=== PATIENT | female | born 1955 | race Caucasian/White ===

== ENCOUNTER → 2016-12-14 | Outpatient (CLI) | payer MEDICARE ==
[2016-12-14 16:41] LABS: CH 31.2; CHCM 31.5; HCT 48.9 % (34.0-46.0); HDW 2.32; HGB 15.4 gm/dL (11.4-16.0); MCH 31.3 pg (25.0-35.0); MCHC 31.5 g/dL (31.0-37.0); MCV 99.6 fL (80.0-100.0); Mean Platelet Volume 7.6; RBC 4.91 m/uL (3.80-5.40); RDW 13.9 % (11.5-15.5); WBC 9.4 k/uL (3.8-10.6)
[2016-12-14 16:50] LABS: ALT 45 U/L (9-52); AST 35 U/L (14-36); Alkaline Phosphatase 104 U/L (38-126); Anion Gap 9 mmol/L; Blood Urea Nitrogen 14 mg/dL (7-17); Carbon Dioxide 31 mmol/L (22-30); Chloride 105 mmol/L (98-107); Glucose 89 mg/dL (74-99); Non-African American GFR(MDRD) >60 (>60 ml/min/1.73 sqM); Potassium 4.8 mmol/L (3.5-5.1); Sodium 145 mmol/L (137-145); Total Bilirubin 0.4 mg/dL (0.2-1.3); Total Protein 7.5 g/dL (6.3-8.2)
== END | disposition home or self-care (01) ==
LOC: LABWHC1 15:59
PROVIDERS: ATTEND Psychiatry & Neurology Psychiatry
DX: Z51.81 Encounter for therapeutic drug level monitoring (principal); Z79.899 Other long term (current) drug therapy; E03.9 Hypothyroidism, unspecified
CPT/HCPCS: 36415; 80053; 84439; 84443; 85027

== ENCOUNTER 2017-01-12 13:59 | Emergency (ER) | payer MEDICARE ==
--- NOTE | 2017-01-12 14:59 | ED ---
Psych HPI - General Chief Complaint: Psychiatric Symptoms Stated Complaint: Dr Quintanilla/Mental Health Time Seen by Provider: 01/12/17 14:43 Source: patient, RN notes reviewed Mode of arrival: ambulatory Limitations: no limitations - History of Present Illness Initial Comments: 61-year-old female presents emergency Department chief complaint of depression, suicidal thoughts. Patient states that she recently had a in the family and states that she is very stressed out from this. Patient states she does have suicidal thoughts but no exact plan. Patient denies any physical complaints this time. Patient just came from psychiatrist's office who advised to come emergency department for possible admission. Patient denies any homicidal thoughts. Patient does occasionally use alcohol. - Related Data Home Medications Medication Instructions Recorded Confirmed Escitalopram [Lexapro] 20 mg PO DAILY 04/04/14 01/12/17 Levothyroxine Sodium [Levoxyl] 50 mcg PO DAILY 04/04/14 01/12/17 amLODIPine BESYLATE [Norvasc] 10 mg PO DAILY 04/04/14 01/12/17 Albuterol Inhaler [Ventolin Hfa 2 puff INHALATION RT-QID PRN 01/12/17 01/12/17 Inhaler] Calcium Carbonate [Calcium] 600 mg PO DAILY 01/12/17 01/12/17 Cholecalciferol [Vitamin D3] 1,000 unit PO DAILY 01/12/17 01/12/17 Diazepam [Valium] 5 mg PO BID PRN 01/12/17 01/12/17 HYDROcodone/APAP 10-325MG [[place] 1 tab PO Q6H PRN 01/12/17 01/12/17 10-325] lamoTRIgine [LaMICtal] 400 mg PO DAILY 01/12/17 01/12/17 Allergies Allergy/AdvReac Type Severity Reaction Status Date / Time influenza virus vaccine qs Allergy Unknown Unknown Verified 01/12/17 15:17 [id number] (36 mos +) [From Fluarix Quad] latex Allergy Unknown Rash/Hives Verified 01/12/17 15:17 duloxetine HCl AdvReac Unknown INCREASED Verified 01/12/17 15:17 [From Cymbalta] DEPRESSION Review of Systems ROS Statement: Those systems with pertinent positive or pertinent negative responses have been documented in the HPI. ROS Other: All systems not noted in ROS Statement are negative. Past Medical History Past Medical History: COPD, Hypertension, Musculoskeletal Disorder, Thyroid Disorder Additional Past Medical History / Comment(s): CHRONIC BACK PAIN, OCCASIONAL DIZZINESS. History of Any Multi-Drug Resistant Organisms: None Reported Past Surgical History: Section, Orthopedic Surgery, Tonsillectomy Additional Past Surgical History / Comment(s): left shoulder, RIGHT HIP SURGERY Past Anesthesia/Blood Transfusion Reactions: No Reported Reaction Past Psychological History: Anxiety, Bipolar, Depression, Panic Disorder Smoking Status: Current every day smoker Past Alcohol Use History: Occasional Additional Past Alcohol Use History / Comment(s): SMOKES OVER 1 PPD, SMOKING FOR APPROX 45 YEARS. Past Drug Use History: None Reported Additional Drug Use History / Comment(s): NO COCAINE FOR 3 YEARS. - Past Family History Mother Family Medical History: Cancer, CVA/TIA Additional Family Medical History / Comment(s): PANCREATIC CANCER General Exam Limitations: no limitations General appearance: alert, in no apparent distress Head exam: Present: atraumatic, normocephalic, normal inspection Neck exam: Present: normal inspection, full ROM. Absent: tenderness, meningismus, lymphadenopathy Respiratory exam: Present: normal lung sounds bilaterally. Absent: respiratory distress, wheezes, rales, rhonchi, stridor Cardiovascular Exam: Present: regular rate, normal rhythm, normal heart sounds. Absent: systolic murmur, diastolic murmur, rubs, gallop, clicks Neurological exam: Present: alert, oriented X3, CN II-XII intact Psychiatric exam: Present: depressed, flat affect Course Vital Signs 01/12/17 01/12/17 14:28 18:31 Temperature 98.0 F 97.9 F Pulse Rate 61 50 L Respiratory 18 12 Rate Blood Pressure 121/71 135/60 O2 Sat by Pulse 98 95 Oximetry Medical Decision Making - Medical Decision Making 7-year-old female presented for psychiatric evaluation. Patient is depressed, suicidal. Patient is medically cleared and will be transferred to a psychiatric facility. - Lab Data Result diagrams: 01/12/17 18:15 01/12/17 18:15 Lab Results 01/12/17 01/12/17 01/12/17 Range/Units 15:15 18:15 18:15 WBC 5.7 (3.8-10.6) k/uL RBC 4.76 (3.80-5.40) m/uL Hgb 15.2 (11.4-16.0) gm/dL Hct 45.8 (34.0-46.0) % MCV 96.1 (80.0-100.0) fL MCH 31.8 (25.0-35.0) pg MCHC 33.1 (31.0-37.0) g/dL RDW 13.5 (11.5-15.5) % Plt Count 213 (150-450) k/uL Neutrophils % 57 % Lymphocytes % 32 % Monocytes % 5 % Eosinophils % 3 % Basophils % 1 % Neutrophils # 3.3 (1.3-7.7) k/uL Lymphocytes # 1.8 (1.0-4.8) k/uL Monocytes # 0.3 (0-1.0) k/uL Eosinophils # 0.2 (0-0.7) k/uL Basophils # 0.1 (0-0.2) k/uL Sodium 143 (137-145) mmol/L Potassium 4.0 (3.5-5.1) mmol/L Chloride 104 (98-107) mmol/L Carbon Dioxide 31 H (22-30) mmol/L Anion Gap 8 mmol/L BUN 12 (7-17) mg/dL Creatinine 0.77 (0.52-1.04) mg/dL Est GFR (MDRD) Af Amer >60 (>60 ml/min/1.73 sqM) Est GFR (MDRD) Non-Af >60 (>60 ml/min/1.73 sqM) Glucose 98 (74-99) mg/dL Calcium 9.9 (8.4-10.2) mg/dL Total Bilirubin 0.5 (0.2-1.3) mg/dL AST 30 (14-36) U/L ALT 33 (9-52) U/L Alkaline Phosphatase 65 (38-126) U/L Total Protein 6.8 (6.3-8.2) g/dL Albumin 4.2 (3.5-5.0) g/dL Urine Opiates Screen Not Detected (NotDetected) Ur Oxycodone Screen Not Detected (NotDetected) Urine Methadone Screen Not Detected (NotDetected) Ur Propoxyphene Screen Not Detected (NotDetected) Ur Barbiturates Screen Not Detected (NotDetected) U Tricyclic Antidepress Not Detected (NotDetected) Ur Phencyclidine Scrn Not Detected (NotDetected) Ur Amphetamines Screen Not Detected (NotDetected) U Methamphetamines Scrn Not Detected (NotDetected) U Benzodiazepines Scrn Detected H (NotDetected) Urine Cocaine Screen Not Detected (NotDetected) U Marijuana (THC) Screen Not Detected (NotDetected) Disposition Clinical Impression: Depression, Suicidal ideation Disposition: TRANSFER TO PSYCH HOSP/UNIT Condition: Stable Time of Disposition: 19:10
[2017-01-12 18:22] LABS: Basophils # (A) 0.1 k/uL (0-0.2); Basophils % (A) 1 %; CH 31.7; CHCM 33.1; Eosinophils # (A) 0.2 k/uL (0-0.7); Eosinophils % (A) 3 %; HCT 45.8 % (34.0-46.0); HDW 2.27; HGB 15.2 gm/dL (11.4-16.0); Luc # (Auto) 0.13; Luc % (Auto) 2; Lymphocytes # (A) 1.8 k/uL (1.0-4.8); Lymphocytes % (A) 32 %; MCH 31.8 pg (25.0-35.0); MCHC 33.1 g/dL (31.0-37.0); MCV 96.1 fL (80.0-100.0); Mean Platelet Volume 7.4; Monocytes # (A) 0.3 k/uL (0-1.0); Monocytes % (A) 5 %; Neutrophils # (A) 3.3 k/uL (1.3-7.7); Neutrophils % (A) 57 %; RBC 4.76 m/uL (3.80-5.40); RDW 13.5 % (11.5-15.5); WBC 5.7 k/uL (3.8-10.6); WBC (Perox) 5.62
[2017-01-12 18:35] LABS: ALT 33 U/L (9-52); AST 30 U/L (14-36); Alkaline Phosphatase 65 U/L (38-126); Anion Gap 8 mmol/L; Blood Urea Nitrogen 12 mg/dL (7-17); Calcium 9.9 mg/dL (8.4-10.2); Carbon Dioxide 31 mmol/L (22-30); Chloride 104 mmol/L (98-107); Glucose 98 mg/dL (74-99); Non-African American GFR(MDRD) >60 (>60 ml/min/1.73 sqM); Sodium 143 mmol/L (137-145); Total Bilirubin 0.5 mg/dL (0.2-1.3); Total Protein 6.8 g/dL (6.3-8.2)
[2017-01-12 21:05] VITALS: RESP 16
[2017-01-12 22:50] VITALS: BP 126/77; PULSE 58; TEMP 98.9
== END 2017-01-12 22:48 ==
LOC: EC 13:59
DX: F32.9 Major depressive disorder, single episode, unspecified (principal); R45.851 Suicidal ideations; J44.9 Chronic obstructive pulmonary disease, unspecified; I10 Essential (primary) hypertension; E07.9 Disorder of thyroid, unspecified; F41.0 Panic disorder [episodic paroxysmal anxiety]; F41.9 Anxiety disorder, unspecified; F17.200 Nicotine dependence, unspecified, uncomplicated; Z88.8 Allergy status to other drugs, medicaments and biological substances; Z88.7 Allergy status to serum and vaccine; Z91.040 Latex allergy status
CPT/HCPCS: 99285; G9611; 36415; 80053; 80306; 82075; 85025

== ENCOUNTER → 2017-06-29 | Outpatient (CLI) | payer MEDICARE ==
--- NOTE | 2017-06-30 11:14 | MM ---
Reason for exam: screening (asymptomatic). Last mammogram was performed 2 years and 4 months ago. History: Patient is postmenopausal. Taking estrogen for 1 month. Physical Findings: A clinical breast exam by your physician is recommended on an annual basis and results should be correlated with mammographic findings. MG Screening Mammo w CAD Bilateral CC and MLO view(s) were taken. Prior study comparison: February 19, 2015, bilateral MG screening mammo w CAD. December 24, 2013, bilateral digital screening mammo w/CAD. The breast tissue is heterogeneously dense. This may lower the sensitivity of mammography. No suspicious abnormality. ASSESSMENT: Negative, BI-RAD 1 RECOMMENDATION: Routine screening mammogram of both breasts in 1 year.
== END | disposition home or self-care (01) ==
LOC: RADMAMWWP 13:48
PROVIDERS: ATTEND Family Medicine
DX: Z12.31 Encounter for screening mammogram for malignant neoplasm of breast (principal)

== ENCOUNTER → 2017-11-30 | Outpatient (CLI) | payer MEDICARE ==
[2017-11-30 15:30] LABS: HCT 47.5 % (34.0-46.0); HGB 15.6 gm/dL (11.4-16.0); MCH 31.3 pg (25.0-35.0); MCHC 32.8 g/dL (31.0-37.0); MCV 95.3 fL (80.0-100.0); Mean Platelet Volume 6.8; Platelet Count 386 k/uL (150-450); RBC 4.98 m/uL (3.80-5.40); RDW 13.6 % (11.5-15.5); WBC 8.3 k/uL (3.8-10.6)
[2017-11-30 15:44] LABS: ALT 80 U/L (9-52); AST 39 U/L (14-36); Albumin 5.1 g/dL (3.5-5.0); Alkaline Phosphatase 121 U/L (38-126); Anion Gap 12 mmol/L; Blood Urea Nitrogen 17 mg/dL (7-17); Calcium 10.6 mg/dL (8.4-10.2); Carbon Dioxide 33 mmol/L (22-30); Chloride 99 mmol/L (98-107); Cholesterol 236 mg/dL (<200); Glucose 91 mg/dL (74-99); HDL Cholesterol 99 mg/dL (40-60); LDL Cholesterol,Calculated 118 mg/dL (0-99); Potassium 4.5 mmol/L (3.5-5.1); Sodium 144 mmol/L (137-145); Total Bilirubin 0.5 mg/dL (0.2-1.3); Total Protein 8.4 g/dL (6.3-8.2); Triglycerides 94 mg/dL (<150)
[2017-11-30 16:00] LABS: T4, Free (Free Thyroxine) 0.89 ng/dL (0.78-2.19)
== END | disposition home or self-care (01) ==
LOC: LABWHC1 15:10
PROVIDERS: ATTEND Psychiatry & Neurology Psychiatry
DX: E03.9 Hypothyroidism, unspecified (principal); Z79.899 Other long term (current) drug therapy
CPT/HCPCS: 36415; 80053; 80061; 84439; 84443; 85027

== ENCOUNTER 2018-01-22 08:01 | Inpatient (IN) | payer MEDICARE ==
[2018-01-22] MEDS ORDERED: TOPICAL SKIN ADHESIVE 1 EACH AMP TOPICAL STA (08:15)
--- NOTE | 2018-01-22 08:18 | ED ---
General Adult HPI - General Chief complaint: Overdose Stated complaint: SUICIDAL Time Seen by Provider: 01/22/18 08:08 Source: patient, family, RN notes reviewed Mode of arrival: wheelchair Limitations: no limitations - History of Present Illness Initial comments: Patient is a pleasant 62-year-old female presenting to the emergency Department with depression and suicidal thoughts. Symptoms have been worse for the past month or more. Patient was unable to afford her Abilify that was recommended. Patient has bipolar. Patient attributes her depression to her bipolar and states she just gets this way at times. Patient took approximately 15 of 5 mg Valium around 11 PM last night. Patient also attempted to cut both of her hands with a large knife this morning. This was a clean knife from the kitchen. Tetanus immunization is less than 5 years. No hallucinations. No alcohol or street drug use. No physical complaints other than lacerations. - Related Data Home Medications Medication Instructions Recorded Confirmed Escitalopram [Lexapro] 20 mg PO DAILY 04/04/14 01/22/18 Levothyroxine Sodium [Levoxyl] 50 mcg PO DAILY 04/04/14 01/22/18 amLODIPine BESYLATE [Norvasc] 10 mg PO DAILY 04/04/14 01/22/18 Albuterol Inhaler [Ventolin Hfa 2 puff INHALATION RT-QID PRN 01/12/17 01/22/18 Inhaler] Calcium Carbonate [Calcium] 600 mg PO DAILY 01/12/17 01/22/18 Cholecalciferol [Vitamin D3] 1,000 unit PO DAILY 01/12/17 01/22/18 Diazepam [Valium] 5 mg PO BID PRN 01/12/17 01/22/18 HYDROcodone/APAP 10-325MG [[place] 1 tab PO Q6H PRN 01/12/17 01/22/18 10-325] lamoTRIgine [LaMICtal] 400 mg PO DAILY 01/12/17 01/22/18 Allergies Allergy/AdvReac Type Severity Reaction Status Date / Time influenza virus vaccine qs Allergy Unknown Unknown Verified 01/22/18 15:01 [id number] (36 mos, up) [From Fluarix Quad] latex Allergy Unknown Rash/Hives Verified 01/22/18 15:01 duloxetine HCl AdvReac Unknown INCREASED Verified 01/22/18 15:01 [From Cymbalta] DEPRESSION Review of Systems ROS Statement: Those systems with pertinent positive or pertinent negative responses have been documented in the HPI. ROS Other: All systems not noted in ROS Statement are negative. Constitutional: Denies: fever Eyes: Denies: eye pain ENT: Denies: ear pain Respiratory: Denies: cough Cardiovascular: Denies: chest pain Endocrine: Denies: fatigue Gastrointestinal: Denies: abdominal pain Genitourinary: Denies: dysuria Musculoskeletal: Denies: back pain Skin: Denies: rash Neurological: Denies: headache Psychiatric: Reports: depression, suicidal thoughts. Denies: auditory hallucinations, visual hallucinations Past Medical History Past Medical History: COPD, Hypertension, Musculoskeletal Disorder, Thyroid Disorder Additional Past Medical History / Comment(s): CHRONIC BACK PAIN, OCCASIONAL DIZZINESS. History of Any Multi-Drug Resistant Organisms: None Reported Past Surgical History: Section, Orthopedic Surgery, Tonsillectomy Additional Past Surgical History / Comment(s): left shoulder, RIGHT HIP SURGERY Past Anesthesia/Blood Transfusion Reactions: No Reported Reaction Past Psychological History: Anxiety, Bipolar, Depression, Panic Disorder Smoking Status: Current every day smoker Past Alcohol Use History: Occasional Past Drug Use History: None Reported - Past Family History Mother Family Medical History: Cancer, CVA/TIA Additional Family Medical History / Comment(s): PANCREATIC CANCER General Exam Limitations: no limitations General appearance: alert, in no apparent distress Head exam: Present: atraumatic Eye exam: Present: normal appearance, PERRL ENT exam: Present: normal oropharynx Neck exam: Present: normal inspection Respiratory exam: Present: normal lung sounds bilaterally Cardiovascular Exam: Present: normal rhythm, bradycardia GI/Abdominal exam: Present: soft. Absent: tenderness Extremities exam: Present: other ( 2 Lacerations of left thumb) Neurological exam: Present: alert Psychiatric exam: Present: normal affect, normal mood Skin exam: Present: other (2 lacerations of the left thumb) Course Vital Signs 01/22/18 01/22/18 01/22/18 08:01 08:48 10:38 Temperature 97.2 F L Pulse Rate 51 L 50 L 52 L Respiratory 16 16 16 Rate Blood Pressure 157/72 157/78 O2 Sat by Pulse 96 97 96 Oximetry EKG Findings - EKG Comments: EKG Findings:: Sinus bradycardia 47. MI 16. QRS 96. QT 526. QTc 465. Normal axis. Normal QRS. No acute ST change. Procedures - Laceration Laceration #1 Consent Obtained: verbal consent Time Out Performed: Yes Indication: laceration Site: hand (left Thumb over the MCP with 2 small lacerations. No tendon involvement visualized. Good strength with extension of the thumb.) Size (cm): 3 Description: linear Depth: simple, single layer Pre-repair: wound explored, irrigated extensively Type of Sutures: other (Closed with Dermabond) Medical Decision Making - Lab Data Result diagrams: 01/23/18 09:32 01/23/18 09:32 Lab Results 01/22/18 01/22/18 01/22/18 Range/Units 08:19 08:19 08:43 WBC 7.1 (3.8-10.6) k/uL RBC 4.83 (3.80-5.40) m/uL Hgb 14.5 (11.4-16.0) gm/dL Hct 45.1 (34.0-46.0) % MCV 93.4 (80.0-100.0) fL MCH 30.1 (25.0-35.0) pg MCHC 32.2 (31.0-37.0) g/dL RDW 14.0 (11.5-15.5) % Plt Count 240 (150-450) k/uL Neutrophils % 60 % Lymphocytes % 30 % Monocytes % 5 % Eosinophils % 2 % Basophils % 1 % Neutrophils # 4.3 (1.3-7.7) k/uL Lymphocytes # 2.2 (1.0-4.8) k/uL Monocytes # 0.4 (0-1.0) k/uL Eosinophils # 0.2 (0-0.7) k/uL Basophils # 0.1 (0-0.2) k/uL Sodium 141 (137-145) mmol/L Potassium 4.1 (3.5-5.1) mmol/L Chloride 103 (98-107) mmol/L Carbon Dioxide 28 (22-30) mmol/L Anion Gap 10 mmol/L BUN 24 H (7-17) mg/dL Creatinine 0.71 (0.52-1.04) mg/dL Est GFR (CKD-EPI)AfAm >90 (>60 ml/min/1.73 sqM) Est GFR (CKD-EPI)NonAf >90 (>60 ml/min/1.73 sqM) Glucose 90 (74-99) mg/dL Calcium 10.2 (8.4-10.2) mg/dL Total Bilirubin 0.5 (0.2-1.3) mg/dL AST 52 H (14-36) U/L ALT 61 H (9-52) U/L Alkaline Phosphatase 120 (38-126) U/L Total Protein 7.8 (6.3-8.2) g/dL Albumin 4.8 (3.5-5.0) g/dL Urine Color Light Yellow Urine Appearance Clear (Clear) Urine pH 6.0 (5.0-8.0) Ur Specific [place] 1.004 (1.001-1.035) Urine Protein Negative (Negative) Urine Glucose (UA) Negative (Negative) Urine Ketones Negative (Negative) Urine Blood Trace H (Negative) Urine Nitrite Negative (Negative) Urine Bilirubin Negative (Negative) Urine Urobilinogen <2.0 (<2.0) mg/dL Ur Leukocyte Esterase Moderate H (Negative) Urine RBC 1 (0-5) /hpf Urine WBC 4 (0-5) /hpf Ur Squamous Epith Cells <1 (0-4) /hpf Urine Bacteria Rare H (None) /hpf Urine Mucus Rare H (None) /hpf Salicylates <1.0 mg/dL Urine Opiates Screen Not Detected (NotDetected) Ur Oxycodone Screen Not Detected (NotDetected) Urine Methadone Screen Not Detected (NotDetected) Ur Propoxyphene Screen Not Detected (NotDetected) Acetaminophen <10.0 ug/mL Ur Barbiturates Screen Not Detected (NotDetected) U Tricyclic Antidepress Not Detected (NotDetected) Ur Phencyclidine Scrn Not Detected (NotDetected) Ur Amphetamines Screen Not Detected (NotDetected) U Methamphetamines Scrn Not Detected (NotDetected) U Benzodiazepines Scrn Detected H (NotDetected) Urine Cocaine Screen Not Detected (NotDetected) U Marijuana (THC) Screen Not Detected (NotDetected) Serum Alcohol <10 mg/dL Disposition Clinical Impression: Bipolar depression, Suicide attempt Disposition: TRANSFER TO PSYCH HOSP/UNIT
[2018-01-22 08:27] LABS: Basophils # (A) 0.1 k/uL (0-0.2); Basophils % (A) 1 %; Eosinophils # (A) 0.2 k/uL (0-0.7); Eosinophils % (A) 2 %; HCT 45.1 % (34.0-46.0); HGB 14.5 gm/dL (11.4-16.0); Lymphocytes # (A) 2.2 k/uL (1.0-4.8); Lymphocytes % (A) 30 %; MCH 30.1 pg (25.0-35.0); MCHC 32.2 g/dL (31.0-37.0); MCV 93.4 fL (80.0-100.0); Mean Platelet Volume 7.2; Monocytes # (A) 0.4 k/uL (0-1.0); Monocytes % (A) 5 %; Neutrophils # (A) 4.3 k/uL (1.3-7.7); Neutrophils % (A) 60 %; Platelet Count 240 k/uL (150-450); RBC 4.83 m/uL (3.80-5.40); WBC 7.1 k/uL (3.8-10.6)
[2018-01-22 08:37] LABS: Acetaminophen <10.0 ug/mL; Albumin 4.8 g/dL (3.5-5.0); Alcohol <10 mg/dL; Anion Gap 10 mmol/L; Calcium 10.2 mg/dL (8.4-10.2); Carbon Dioxide 28 mmol/L (22-30); Chloride 103 mmol/L (98-107); Glucose 90 mg/dL (74-99); Salicylate <1.0 mg/dL; Sodium 141 mmol/L (137-145); Total Bilirubin 0.5 mg/dL (0.2-1.3); Total Protein 7.8 g/dL (6.3-8.2)
[2018-01-22 08:43] LABS: ALT 61 U/L (9-52); AST 52 U/L (14-36); Alkaline Phosphatase 120 U/L (38-126); Blood Urea Nitrogen 24 mg/dL (7-17); Potassium 4.1 mmol/L (3.5-5.1)
[2018-01-22 09:04] LABS: Appearance,Urine Clear (Clear); Bacteria,Urine Rare /hpf; Bilirubin,Urine Negative (Negative); Blood,Urine Trace (Negative); Color,Urine Light Yellow; Glucose,Urine (UA) Negative (Negative); Ketones,Urine Negative (Negative); Leukocyte Esterase,Urine Moderate (Negative); Mucus,Urine Rare /hpf; Nitrite,Urine Negative (Negative); Protein,Urine Negative (Negative); RBC,Urine 1 /hpf (0-5); Specific Gravity,Urine 1.004 (1.001-1.035); Squamous Epithelial Cell,Urine <1 /hpf (0-4); Urobilinogen,Urine <2.0 mg/dL (<2.0); WBC,Urine 4 /hpf (0-5)
[2018-01-22 09:08] LABS: Amphetamine Screen,Urine Not Detected (NotDetected); Barbiturate Screen,Urine Not Detected (NotDetected); Benzodiazepines Screen,Urine Detected (NotDetected); Cocaine Screen,Urine Not Detected (NotDetected); Methadone Screen, Urine Not Detected (NotDetected); Opiate Screen,Urine Not Detected (NotDetected); Oxycodone Screen, Urine Not Detected (NotDetected); Phencyclidine Screen,Urine Not Detected (NotDetected); Tricyclic Antidepressant,Urine Not Detected (NotDetected); Urn Cannabinoid Scrn Not Detected (NotDetected)
[2018-01-22] MEDS ORDERED: MAGNESIUM HYDROXIDE 2,400 MG/10 ML CUP PO PRN (13:40)
[2018-01-22] MEDS ORDERED: MAG HYDROX/AL HYDROX/SIMETH 30 ML CUP PO PRN (13:40)
[2018-01-22] MEDS ORDERED: ALBUTEROL INHALER 60 PUFF/8 GM INHALER INHALATION PRN (13:42)
[2018-01-22] MEDS ORDERED: HYDROcodone/APAP 5-325MG 1 EACH TAB PO PRN (13:43)
[2018-01-22 15:22] VITALS: BMI 21.2
[2018-01-23] MEDS: LEVOTHYROXINE 50 MCG TAB PO SCH (05:53)
--- NOTE | 2018-01-23 07:01 | CONS ---
CONSULTATION REASON FOR CONSULTATION: Advice regarding cough and other symptoms requested by Dr. Marie. HISTORY OF PRESENT ILLNESS: This 62-year-old woman with a past medical history of COPD, history of musculoskeletal disorders, history of hypertension, history of chronic back pain, anxiety, bipolar depression before Dr. Rodriguez in the outpatient setting was admitted for psychiatric evaluation. Patient apparently cutting her hands with a clean knife. Tetanus toxoid was updated and the patient was admitted for further evaluation. The patient also complaining of significant amount of smoking up to 3 packs per day with occasional cough. No chest pain or palpitations. No headache, loss of consciousness, nausea, vomiting, diarrhea, fever, rigors or chills. PAST MEDICAL HISTORY: History of COPD, hypertension, history of DJD, history of chronic back pain, anxiety, bipolar depression. MEDICATIONS PRIOR TO ADMISSION: 1. Lamictal 400 mg p.o. daily. 2. Norvasc 10 mg p.o. daily. 3. Levoxyl 50 mcg p.o. daily. 4. [place] 10 mg q.6 p.r.n. 5. Lexapro 20 mg p.o. daily. 6. Valium 5 mg b.i.d. p.r.n. 7. Vitamin D3, 1000 daily. 8. Calcium 600 mg p.o. daily. 9. Ventolin HFA 2 puffs q.i.d. p.r.n. ALLERGIES: Allergies are INFLUENZA, LATEX and CYMBALTA. FAMILY HISTORY: History of cancer, CVA, TIA, pancreatic cancer. SOCIAL HISTORY: History of smoking. No history of alcohol intake. REVIEW OF SYSTEMS: ENT: No diminished hearing or diminished vision. CARDIOVASCULAR SYSTEM: No angina. RESPIRATORY SYSTEM: As mentioned earlier. GI: As mentioned earlier. : No dysuria. NERVOUS SYSTEM: ntd ALLERGIES/IMMUNOLOGY: No asthma or hayfever. MUSCULOSKELETAL: As mentioned earlier. HEMATOLOGY/ONCOLOGY: No history of anemia. ENDOCRINE: Hypothyroidism. CONSTITUTIONAL: As mentioned earlier. DERMATOLOGY: Negative. RHEUMATOLOGY: Negative. PSYCHIATRY: As mentioned earlier. PHYSICAL EXAMINATION: The patient is alert and oriented x3. Pulse 54, blood pressure 111/70, respirations 14, temperature 97.1, pulse ox 90% room air. HEENT: Conjunctivae normal. Oral mucosa moist. Neck is no jugular venous distention. No carotid bruit. No lymph node enlargement. CARDIOVASCULAR: S1 and S2 muffled. No S3 or S4. RESPIRATORY: Breath sounds diminished at the bases. Bilateral scattered rhonchi and expiratory wheezing and few crackles. ABDOMEN: Soft, nontender. No mass palpable. LEGS: No edema, no swelling. NERVOUS SYSTEM: Higher function as mentioned earlier. Moves all 4 limbs. No focal motor deficits. Cranial nerves 2 to 12 grossly intact. Eye movements are full in all directions. No nystagmus. No facial deviation. Power is grade 5/5. The sensation is normal. No signs of cerebellar dysfunction LYMPHATICS: No lymphadenopathy of the neck, axillae or groin. SKIN: Superficial abrasions in both hands present. LABS: WBC 7.1, hemoglobin 14.5. AST is 52 and ALT is 61. ASSESSMENT: 1. Bilateral superficial abrasions. 2. Increased AST, ALT with possible mild hepatitis. 3. Chronic obstructive pulmonary disease. 4. Hypertension. 5. History of hypothyroidism. 6. Chronic back pain, degenerative joint disease. 7. Anxiety, bipolar depression, panic disorder. 8. History of nicotine dependence. 9. FULL CODE. RECOMMENDATIONS AND DISCUSSION: This 62-year-old woman who presented with multiple medical problems, will monitor the patient closely. Continue the current medications, continue the symptomatic treatment. Otherwise at this time I recommend continue with p.r.n. inhalers and smoking cessation. Otherwise acute hepatitis panel. Will follow the patient. Will recommend the patient follow up with Dr. Rodriguez closely. Thank you Dr. Marie for letting us participate in this patient's care. MMODL / IJN: [id number] / [facility] HOSPITALGiovanna
[2018-01-23] MEDS ORDERED: ESCITALOPRAM 20 MG TAB PO SCH (09:00)
[2018-01-23] MEDS: lamoTRIgine 100 MG TAB PO SCH (09:25)
[2018-01-23] MEDS: CALCIUM CARBONATE 500 MG CHEWABLE PO SCH (09:25)
[2018-01-23] MEDS: CHOLECALCIFEROL 1,000 UNIT TAB PO SCH (09:25)
[2018-01-23] MEDS: amLODIPine 10 MG TAB PO SCH (09:25)
[2018-01-23] MEDS: ACETAMINOPHEN TAB 325 MG TAB PO PRN ×2 (09:27→21:57)
[2018-01-23] MEDS: NICOTINE 14MG/24HR PATCH TRANSDERM SCH (09:32)
--- NOTE | 2018-01-23 09:42 | P.HP ---
Psychiatric H&P - . H&P Date: 01/23/18 History & Physical: Allergies Allergy/AdvReac Type Severity Reaction Status Date / Time influenza virus vaccine qs Allergy Unknown Unknown Verified 01/22/18 15:01 [id number] (36 mos, up) [From Fluarix Quad] latex Allergy Unknown Rash/Hives Verified 01/22/18 15:01 duloxetine HCl AdvReac Unknown INCREASED Verified 01/22/18 15:01 [From Cymbalta] DEPRESSION Vital Signs Temp 97.7 F 01/23/18 07:11 Pulse 73 01/23/18 07:11 Resp 16 01/23/18 07:11 BP 120/76 01/23/18 07:11 Pulse Ox 90 L 01/22/18 15:14 Intake & Output 01/22/18 01/23/18 01/23/18 18:59 06:59 18:59 Weight 52.8 kg Laboratory Last Values WBC 7.1 k/uL (3.8-10.6) 01/22/18 08:19 RBC 4.83 m/uL (3.80-5.40) 01/22/18 08:19 Hgb 14.5 gm/dL (11.4-16.0) 01/22/18 08:19 Hct 45.1 % (34.0-46.0) 01/22/18 08:19 MCV 93.4 fL (80.0-100.0) 01/22/18 08:19 MCH 30.1 pg (25.0-35.0) 01/22/18 08:19 MCHC 32.2 g/dL (31.0-37.0) 01/22/18 08:19 RDW 14.0 % (11.5-15.5) 01/22/18 08:19 Plt Count 240 k/uL (150-450) 01/22/18 08:19 Neutrophils % 60 % 01/22/18 08:19 Lymphocytes % 30 % 01/22/18 08:19 Monocytes % 5 % 01/22/18 08:19 Eosinophils % 2 % 01/22/18 08:19 Basophils % 1 % 01/22/18 08:19 Neutrophils # 4.3 k/uL (1.3-7.7) 01/22/18 08:19 Lymphocytes # 2.2 k/uL (1.0-4.8) 01/22/18 08:19 Monocytes # 0.4 k/uL (0-1.0) 01/22/18 08:19 Eosinophils # 0.2 k/uL (0-0.7) 01/22/18 08:19 Basophils # 0.1 k/uL (0-0.2) 01/22/18 08:19 Sodium 141 mmol/L (137-145) 01/22/18 08:19 Potassium 4.1 mmol/L (3.5-5.1) 01/22/18 08:19 Chloride 103 mmol/L (98-107) 01/22/18 08:19 Carbon Dioxide 28 mmol/L (22-30) 01/22/18 08:19 Anion Gap 10 mmol/L 01/22/18 08:19 BUN 24 mg/dL (7-17) H 01/22/18 08:19 Creatinine 0.71 mg/dL (0.52-1.04) 01/22/18 08:19 Est GFR (CKD-EPI)AfAm >90 (>60 ml/min/1.73 sqM) 01/22/18 08:19 Est GFR (CKD-EPI)NonAf >90 (>60 ml/min/1.73 sqM) 01/22/18 08:19 Glucose 90 mg/dL (74-99) 01/22/18 08:19 Calcium 10.2 mg/dL (8.4-10.2) 01/22/18 08:19 Total Bilirubin 0.5 mg/dL (0.2-1.3) 01/22/18 08:19 AST 52 U/L (14-36) H 01/22/18 08:19 ALT 61 U/L (9-52) H 01/22/18 08:19 Alkaline Phosphatase 120 U/L (38-126) 01/22/18 08:19 Total Protein 7.8 g/dL (6.3-8.2) 01/22/18 08:19 Albumin 4.8 g/dL (3.5-5.0) 01/22/18 08:19 Urine Color Light Yellow 01/22/18 08:43 Urine Appearance Clear (Clear) 01/22/18 08:43 Urine pH 6.0 (5.0-8.0) 01/22/18 08:43 Ur Specific [place] 1.004 (1.001-1.035) 01/22/18 08:43 Urine Protein Negative (Negative) 01/22/18 08:43 Urine Glucose (UA) Negative (Negative) 01/22/18 08:43 Urine Ketones Negative (Negative) 01/22/18 08:43 Urine Blood Trace (Negative) H 01/22/18 08:43 Urine Nitrite Negative (Negative) 01/22/18 08:43 Urine Bilirubin Negative (Negative) 01/22/18 08:43 Urine Urobilinogen <2.0 mg/dL (<2.0) 01/22/18 08:43 Ur Leukocyte Esterase Moderate (Negative) H 01/22/18 08:43 Urine RBC 1 /hpf (0-5) 01/22/18 08:43 Urine WBC 4 /hpf (0-5) 03 08:43 Ur Squamous Epith Cells <1 /hpf (0-4) 01/22/18 08:43 Urine Bacteria Rare /hpf (None) H 01/22/18 08:43 Urine Mucus Rare /hpf (None) H 01/22/18 08:43 Salicylates <1.0 mg/dL 01/22/18 08:19 Urine Opiates Screen Not Detected (NotDetected) 01/22/18 08:43 Ur Oxycodone Screen Not Detected (NotDetected) 01/22/18 08:43 Urine Methadone Screen Not Detected (NotDetected) 01/22/18 08:43 Ur Propoxyphene Screen Not Detected (NotDetected) 01/22/18 08:43 Acetaminophen <10.0 ug/mL 01/22/18 08:19 Ur Barbiturates Screen Not Detected (NotDetected) 01/22/18 08:43 U Tricyclic Antidepress Not Detected (NotDetected) 01/22/18 08:43 Ur Phencyclidine Scrn Not Detected (NotDetected) 01/22/18 08:43 Ur Amphetamines Screen Not Detected (NotDetected) 01/22/18 08:43 U Methamphetamines Scrn Not Detected (NotDetected) 01/22/18 08:43 U Benzodiazepines Scrn Detected (NotDetected) H 01/22/18 08:43 Urine Cocaine Screen Not Detected (NotDetected) 01/22/18 08:43 U Marijuana (THC) Screen Not Detected (NotDetected) 01/22/18 08:43 Serum Alcohol <10 mg/dL 01/22/18 08:19 01/23/18 09:24 Identification: Letha Faria is a 62 years old white female living in [facility]. She was readmitted to [facility] on 2017 under a petition stating that she is depressed and suicidal. History of present illness: Patient said she has been having suicidal thoughts for the last 3 months and it is spontaneous and is caused by negative thoughts. Apparently she was swallowing Valiums and in between she cut her hands with a kitchen knife these cuts are only superficial scratch mendez she said she has been having depression for the last 10 or so years. She said it is continuous and gets worse for up to one week. She also said she gets manic episodes lasting up to 3 days. When she is manic she becomes very active has lots of energy does not need to sleep much and thinks a lot. When she is depressed she stays by herself and sleeps a lot. She denies hallucinations and delusional thinking. Previous psychiatric history/drugs and alcohol abuse: She was in psychiatric hospitals on several times. She gets her outpatient treatment through a private psychiatrist Dr. Be. She was prescribed Lexapro Lamictal and apparently about 3 weeks ago Abilify. But apparently her insurance does not pay for Abilify and she has not been taking it. She is on when necessary Valium 5 mg and she apparently overdosed on this woman. She said she had taken several drugs in the past but she does not remember which one had helped her. She was abusing multiple drugs when she was a teenager and was also a heavy drinker in the past. But she does not abuse drugs or alcohol these days. Previous medical history: She is ALLERGIC to flu vaccine latex and Cymbalta. She has COPD and smokes about 2 packs of cigarettes per day. She has hypertension and takes medication. 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 She has superficial scratch mendez on both her hands and a little deeper cuts of her left thumb near [place] phalangeal joint. Her last menstrual period was about 15 years ago. She has 3 grownup children. She had one spontaneous and 2 elective abortions. She had one C-sections and 2 D & C. she had surgery on her left shoulder and right hip and had tonsillectomy. Social history she quit the school in 10th grade since she was abusing all kinds of drugs. 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 After that she moved to [place] and worked in [employer]. She has been for the last 36 years and she lives with her . Currently she is disabled and has Medicare. She was not in the service. She is Catholic by anglican and goes to [employer]. She denies any pending legal issues. She is heterosexual. She was raised well by her parents who were when she was 11 or 12. After that she was raised by her mother. Family history: She has 1 brother with Down syndrome. Mental status examination: This is a white ambulatory female with adequate hygiene. She is polite and friendly and cooperative. She does not show any psychomotor agitation or retardation. Her speech is spontaneous relevant and goal-directed. Her mood is cheerful and affect is appropriate to the thought content. She denies current suicidal and homicidal ideas. She denies hallucinations and delusional thinking. Her insight is fair and judgment is impaired as evidenced by her recent Valium abuse and self injurious behavior. She is able to say this is January 2018 but she could not tell me the exact date she is not able to recall even one out of 3 items after 5 minutes. She named only the last 2 presidents when she was asked to name the last 4. She is able to spell house both forwards and backwards. She is able to say 8+7 is 15 and said 87 is 49 after a long wait. Diagnostic impression: Other specified and related bipolar disorder F 31.. ALLERGY to flu vaccine, latex and Cymbalta. Hypertension. COPD. Self inflicted multiple abrasions and 1 superficial laceration. Osteoarthritis of interphalangeal joints. Treatment plan: She will have physical examination and psychosocial evaluation. She will receive milieu therapy group therapy individual therapy occupational therapy recreational therapy and medication education. Her condition and recommended treatment where discussed with her and it was agreed to continue Lamictal 400 mg a day and to start her on lithium 450 mg twice a day for mood stabilization. Continue medication for hypertension and local treatment for laceration of left thumb as ordered by the admitting physician. Since she denies suicidal thoughts and her recent behavior appears to be associated with Valium abuse she will be watched for suicidal behavior but will not be supervised for suicidal behavior. Discharge with outpatient treatment. Treatment goals: Her mood will be stable. She will learn better coping skills. She will continue to be free of suicide thoughts. Estimated length of stay: 5-7 days.
[2018-01-23 10:09] LABS: Albumin 4.3 g/dL (3.5-5.0); Calcium 10.2 mg/dL (8.4-10.2); Potassium 4.4 mmol/L (3.5-5.1); Total Bilirubin 0.6 mg/dL (0.2-1.3); Total Protein 6.9 g/dL (6.3-8.2)
[2018-01-23] MEDS: LITHIUM CARBONATE ER 450 MG TABLET.ER PO SCH ×2 (10:16→21:18)
[2018-01-23 10:18] LABS: Basophils # (A) 0.1 k/uL (0-0.2); Basophils % (A) 1 %; Eosinophils # (A) 0.1 k/uL (0-0.7); Eosinophils % (A) 1 %; HCT 48.8 % (34.0-46.0); Lymphocytes % (A) 22 %; MCH 30.7 pg (25.0-35.0); MCHC 32.8 g/dL (31.0-37.0); MCV 93.6 fL (80.0-100.0); Mean Platelet Volume 7.1; Monocytes # (A) 0.4 k/uL (0-1.0); Monocytes % (A) 5 %; Neutrophils # (A) 6.5 k/uL (1.3-7.7); Neutrophils % (A) 70 %; Platelet Count 279 k/uL (150-450); RBC 5.22 m/uL (3.80-5.40); WBC 9.3 k/uL (3.8-10.6)
[2018-01-23 16:29] LABS: Hepatitis A Antibody IgM Non-Reactive (Non-Reactive); Hepatitis B Core IgM Non-Reactive (Non-Reactive)
[2018-01-23 16:44] LABS: Hemoglobin A1C 5.1 % (4.0-6.0)
[2018-01-23 17:31] LABS: Glucose,Whole Blood 118 mg/dL (75-99)
[2018-01-23] MEDS: INSULIN ASPART 100 UNIT/ML 1 ML 10 ML VIAL SQ SCH ×2 (18:35→21:16)
[2018-01-23 20:06] LABS: Glucose,Whole Blood 112 mg/dL (75-99)
[2018-01-24] MEDS: ACETAMINOPHEN TAB 325 MG TAB PO PRN ×2 (06:07→20:10)
[2018-01-24] MEDS: LEVOTHYROXINE 50 MCG TAB PO SCH (06:08)
[2018-01-24 06:18] LABS: Glucose,Whole Blood 92 mg/dL (75-99)
[2018-01-24] MEDS: INSULIN ASPART 100 UNIT/ML 1 ML 10 ML VIAL SQ SCH ×4 (08:48→20:53)
[2018-01-24] MEDS: lamoTRIgine 100 MG TAB PO SCH (09:01)
[2018-01-24] MEDS: amLODIPine 10 MG TAB PO SCH (09:02)
[2018-01-24] MEDS: CALCIUM CARBONATE 500 MG CHEWABLE PO SCH (09:02)
[2018-01-24] MEDS: CHOLECALCIFEROL 1,000 UNIT TAB PO SCH (09:02)
[2018-01-24] MEDS: LITHIUM CARBONATE ER 450 MG TABLET.ER PO SCH ×2 (09:02→20:08)
[2018-01-24] MEDS: NICOTINE 14MG/24HR PATCH TRANSDERM SCH (09:07)
--- NOTE | 2018-01-24 09:59 | P.PN ---
Progress Note - Text Progress Note Date: 01/24/18 Patient was seen for a routine follow-up examination. She said she did not sleep well last night because her back was hurting. She took some Motrin or Aleve and apparently it did not help her much. She took her lithium yesterday and this morning without any adverse effects. She takes Lamictal also. She cannot tell me if she saw any change since she went on lithium. It is too early to feel the difference anyway. She does not have any other concerns/ complaints. This is a white ambulatory female with adequate hygiene. She is polite and cooperative. She does not show any psychomotor agitation or retardation. Her speech is spontaneous relevant and goal-directed. Her mood varies from euthymic to cheerful and affect is appropriate to the thought content. She denies hallucinations, delusional thinking, suicidal and homicidal ideas. She is well oriented with adequate memory. Plan: Continue Lamictal, lithium and therapies.
[2018-01-24] MEDS: IBUPROFEN 600 MG TAB PO PRN ×2 (11:31→17:26)
[2018-01-24 12:33] LABS: Glucose,Whole Blood 76 mg/dL (75-99)
[2018-01-24 17:30] LABS: Glucose,Whole Blood 79 mg/dL (75-99)
[2018-01-24 19:48] LABS: Glucose,Whole Blood 93 mg/dL (75-99)
[2018-01-25 06:33] LABS: Glucose,Whole Blood 86 mg/dL (75-99)
[2018-01-25] MEDS: LEVOTHYROXINE 50 MCG TAB PO SCH (06:55)
[2018-01-25] MEDS: LITHIUM CARBONATE ER 450 MG TABLET.ER PO SCH ×2 (08:03→20:55)
[2018-01-25] MEDS: amLODIPine 10 MG TAB PO SCH (08:03)
[2018-01-25] MEDS: CHOLECALCIFEROL 1,000 UNIT TAB PO SCH (08:03)
[2018-01-25] MEDS: lamoTRIgine 100 MG TAB PO SCH (08:03)
[2018-01-25] MEDS: CALCIUM CARBONATE 500 MG CHEWABLE PO SCH (08:03)
[2018-01-25] MEDS: INSULIN ASPART 100 UNIT/ML 1 ML 10 ML VIAL SQ SCH ×2 (08:06→12:56)
--- NOTE | 2018-01-25 10:05 | P.PN ---
Progress Note - Text Progress Note Date: 01/25/18 Patient was seen for routine follow-up examination. She said she did not sleep well last night since she had back pain. She has been taking Motrin on a when necessary basis for back pain. She agreed to take naproxen 250 mg twice a day it should of when necessary Motrin. Otherwise she says she feels better. She said she has ongoing suicidal thoughts but she has not thought about it since yesterday. She also agrees that she will not do anything to hurt herself at this moment. She was counseled about all these issues. This is a white ambulatory female with good hygiene. She is polite and cooperative. She does not show any psychomotor agitation or retardation. Her speech is spontaneous relevant and goal-directed. Her mood is cheerful and affect is appropriate to the thought content. She denies hallucinations, delusional thinking, suicidal and homicidal ideas. She said when she gets home she has to set certain rules for her to follow. She is well oriented with adequate memory concentration general fund of knowledge etc. Plan: Change when necessary Motrin to naproxen 250 mg twice a day for chronic back pain. Continue Lamictal and lithium along with groups and other therapies.
[2018-01-25] MEDS: NAPROXEN 250 MG TAB PO SCH ×2 (10:26→20:55)
[2018-01-25 12:29] LABS: Glucose,Whole Blood 64 mg/dL (75-99)
[2018-01-25 12:47] LABS: Glucose,Whole Blood 78 mg/dL (75-99)
[2018-01-25 13:19] LABS: Appearance,Urine Clear (Clear); Bilirubin,Urine Negative (Negative); Blood,Urine Negative (Negative); Color,Urine Yellow; Glucose,Urine (UA) Negative (Negative); Ketones,Urine Negative (Negative); Leukocyte Esterase,Urine Small (Negative); Nitrite,Urine Negative (Negative); Protein,Urine Negative (Negative); RBC,Urine 1 /hpf (0-5); Specific Gravity,Urine 1.017 (1.001-1.035); Urobilinogen,Urine <2.0 mg/dL (<2.0); WBC,Urine 1 /hpf (0-5)
[2018-01-26] MEDS: LEVOTHYROXINE 50 MCG TAB PO SCH (06:11)
[2018-01-26] MEDS: CALCIUM CARBONATE 500 MG CHEWABLE PO SCH (08:49)
[2018-01-26] MEDS: NAPROXEN 250 MG TAB PO SCH ×2 (08:49→20:23)
[2018-01-26] MEDS: LITHIUM CARBONATE ER 450 MG TABLET.ER PO SCH ×2 (08:49→20:23)
[2018-01-26] MEDS: CHOLECALCIFEROL 1,000 UNIT TAB PO SCH (08:49)
[2018-01-26] MEDS: lamoTRIgine 100 MG TAB PO SCH (08:50)
[2018-01-26] MEDS: amLODIPine 10 MG TAB PO SCH (08:55)
--- NOTE | 2018-01-26 12:13 | P.PN ---
Progress Note - Text Progress Note Date: 01/26/18 Patient was seen for routine follow-up examination and possible discharge plan. Patient reported that she feels better and feels ready to go home. She denies any adverse effects from medications. Patient's came earlier for family meeting today. According to the hospital social worker patient's was irate loud and insisted that patient was not ready to come home etc. Apparently the hospital social worker had to tell him that she will have to call security to escort him out if he does not settle down. So the patient was asked to go and discuss with her about discharge plan. It was also explained to her that the insurance will pay only until now and there is a possibility that she may be billed for her continued stay in the hospital. Since patient did not return to the office I went to see her and her in the conference room. Patient was rather irate and loud and said he respects my decreased education etc. but disagrees with the discharge plan and it won't make any difference if the insurance pays or not since he feels patient is not ready to come home. He did not tell us why he thinks patient is not ready to come home. All he could tell me is that patient had told him that she is not taking her Synthroid and her outpatient doctor Dr. Be had told the patient's to come here and discuss about it. He shouldn't and her where assured that patient is still on Synthroid and we did not make any changes to her medications except to discontinue Lexapro and start her on lithium for better mood stabilization. Patient also threatened that I will be held accountable for any adverse outcomes if patient is discharged today and insisted that he doesn't care if he is billed. Patient is friendly and cooperative and does not show any psychomotor agitation or retardation. Her speech is spontaneous relevant and goal-directed. Her mood is cheerful and affect is appropriate. She denies suicidal and homicidal ideas. She insisted that she was getting suicidal thoughts but she had to think a lot what will happen to her her children family etc. if she should kill herself. She said she had talked a lot about it and has decided not to commit suicide. She also denies homicidal ideas. She denies hallucinations and delusional thinking. Her insight and judgment have improved quite a bit. She is well oriented with good memory concentration general fund of knowledge etc. Plan: Continue Lamictal lithium and other medications including therapies groups etc. Since patient and her do not want her to be discharged today, her discharge plan is postponed.
[2018-01-27] MEDS: LEVOTHYROXINE 50 MCG TAB PO SCH (06:17)
[2018-01-27 06:55] VITALS: TEMP 97.9
[2018-01-27] MEDS ORDERED: BACITRACIN OINT 1 EACH PACKET TOPICAL ONE (08:09)
[2018-01-27] MEDS: CHOLECALCIFEROL 1,000 UNIT TAB PO SCH (08:13)
[2018-01-27] MEDS: amLODIPine 10 MG TAB PO SCH (08:13)
[2018-01-27] MEDS: CALCIUM CARBONATE 500 MG CHEWABLE PO SCH (08:13)
[2018-01-27] MEDS: LITHIUM CARBONATE ER 450 MG TABLET.ER PO SCH (08:14)
[2018-01-27] MEDS: lamoTRIgine 100 MG TAB PO SCH (08:14)
[2018-01-27] MEDS: NAPROXEN 250 MG TAB PO SCH (08:14)
[2018-01-27 08:19] VITALS: BP 126/75; PULSE 63; RESP 16
--- NOTE | 2018-01-27 09:53 | P.PN ---
Progress Note - Text Progress Note Date: 01/27/18 Patient was seen for routine follow-up examination. She said she slept pretty well last night. She continues to deny suicidal thoughts. She feels lot better than she did before. Her back is not bothering her as much as it did before. But she thinks she would like to have her naproxen increased to 500 mg twice a day. This is a white ambulatory female with good hygiene. She is polite friendly cheerful and cooperative. She does not show any psychomotor agitation or retardation. Her speech is spontaneous relevant and goal-directed. Her affect is appropriate. She denies suicidal and homicidal thoughts. She denies hallucinations and delusional thinking. She is well oriented with good memory general fund of knowledge concentration etc. Her insight and judgment have improved quite a bit. Plan: Continue Lamictal and lithium, increase naproxen to 500 mg twice a day, check lithium level and TSH on Tuesday the .
--- NOTE | 2018-01-27 12:34 | P.DS ---
Providers Date of admission: 01/22/18 13:32 Expected date of discharge: 01/27/18 Attending physician: Vu Oh Consults: 01/22/18 13:40 Consult Physician Routine Consulting Provider: Brian Lynn Consult Reason/Comments: follow up H & P Do you want consulting provider notified?: Yes Primary care physician: Mitul Cates [facility] Course: After admission patient had psychiatric examination physical examination and psychosocial evaluation. After psychiatric examination her condition was discussed with her including proposed treatment changes. Patient agreed to stop her Lexapro, continue Lamictal and start on lithium 450 mg twice a day for mood stabilization. Patient took the medication without any adverse effects. Her mood started to improve, became free of suicide thoughts and euthymic. She participated in group therapies, socialized with peers, interacted with staff and has been taking her medications regularly. She was complaining of backache and she was started on naproxen 250 mg twice a day. This reduced her back pain and also helped her to sleep better at night. Since she continued to have some back pain the dose was increased to 500 mg twice a day. Since she was doing well and the treatment team felt she was ready to go home, discharge was planned for yesterday. But her was here who became irate and refused to take her home stating that he did not think she was ready to come home. He also had agreed to pay for her extra days here since the insurance company was not willing to pay for her services anymore. However for reasons not clear, patient's agreed to take her home today. In view of this it was agreed to discharge her today. Condition on discharge: This is a white ambulatory female with good hygiene. She is polite friendly cheerful and cooperative. She does not show any psychomotor agitation or retardation. Her speech is spontaneous relevant and goal-directed. Her affect is appropriate. She denies suicidal, homicidal thoughts, hallucinations and delusional thinking. She plans on seeing her outpatient psychiatrist Dr. Be and her family doctor for continued treatment. She is well oriented with good memory concentration general fund of knowledge etc. Her insight and judgment have improved and are optimal. Diagnosis on discharge: Other specified and related bipolar disorder F 31. ALLERGY to flu vaccine, latex and Cymbalta. Hypertension. COPD. Hypothyroidism. Chronic back pain. Osteoarthritis of interphalangeal joints. Self inflicted multiple abrasions and one superficial laceration almost healed. Patient was advised and agreed to take her medications as prescribed, not to drink alcohol or use drugs, not to drive or operate machinery if she feels sleepy, to learn better coping skills through therapy, to get TSH and lithium level early next week through her family doctor and to talk to her doctor if she gets suicidal thoughts and if she cannot get hold of the doctor to go to the nearest ER. Plan - Discharge Summary Discharge Rx Participant: No New Discharge Prescriptions: New amLODIPine [Norvasc] 10 mg PO DAILY 30 Days #30 tab [place] Carbonate ER [Lithobid] 450 mg PO BID 30 Days #60 tablet.er Naproxen [Naprosyn] 500 mg PO BID 30 Days #60 tab Continue Levothyroxine Sodium [Levoxyl] 50 mcg PO DAILY Cholecalciferol [Vitamin D3] 1,000 unit PO DAILY lamoTRIgine [LaMICtal] 400 mg PO DAILY Calcium Carbonate [Calcium] 600 mg PO DAILY Albuterol Inhaler [Ventolin Hfa Inhaler] 2 puff INHALATION RT-QID PRN 30 Days #2 puff PRN Reason: Wheezing Discontinued amLODIPine BESYLATE [Norvasc] 10 mg PO DAILY Escitalopram [Lexapro] 20 mg PO DAILY Diazepam [Valium] 5 mg PO BID PRN PRN Reason: Anxiety HYDROcodone/APAP 10-325MG [[place] 10-325] 1 tab PO Q6H PRN PRN Reason: Pain Discharge Medication List Levothyroxine Sodium [Levoxyl] 50 mcg PO DAILY 04/04/14 [History] Calcium Carbonate [Calcium] 600 mg PO DAILY 01/12/17 [History] Cholecalciferol [Vitamin D3] 1,000 unit PO DAILY 01/12/17 [History] lamoTRIgine [LaMICtal] 400 mg PO DAILY 01/12/17 [History] Albuterol Inhaler [Ventolin Hfa Inhaler] 2 puff INHALATION RT-QID PRN 30 Days # 2 puff 01/27/18 [Rx] [place] Carbonate ER [Lithobid] 450 mg PO BID 30 Days #60 tablet.er 01/27/18 [Rx ] Naproxen [Naprosyn] 500 mg PO BID 30 Days #60 tab 01/27/18 [Rx] amLODIPine [Norvasc] 10 mg PO DAILY 30 Days #30 tab 01/27/18 [Rx] Follow up Appointment(s)/Referral(s): Leyla Schumacher [Outside] - 01/31/18 9:30 am Mitul Rodriguez MD [Primary Care Provider] - 1-2 days Michael Be MD [STAFF PHYSICIAN] - 02/01/18 3:00 pm (Dr Be)
[2018-01-27] MEDS ORDERED: NAPROXEN 250 MG TAB PO SCH (21:00)
== END 2018-01-27 16:11 | disposition home or self-care (01) | DRG 885 ==
LOC: EC 08:01 → 3MHU 13:32
PROVIDERS: ADMIT Psychiatry & Neurology Psychiatry; ATTEND Psychiatry & Neurology Psychiatry
DX: F31.89 Other bipolar disorder (principal); R45.851 Suicidal ideations; E03.9 Hypothyroidism, unspecified; F17.210 Nicotine dependence, cigarettes, uncomplicated; F31.9 Bipolar disorder, unspecified; F41.0 Panic disorder [episodic paroxysmal anxiety]; G89.29 Other chronic pain; I10 Essential (primary) hypertension; J44.9 Chronic obstructive pulmonary disease, unspecified; M19.90 Unspecified osteoarthritis, unspecified site; Z79.899 Other long term (current) drug therapy; Z80.0 Family history of malignant neoplasm of digestive organs; Z82.3 Family history of stroke; Z82.79 Family history of other congenital malformations, deformations and chromosomal abnormalities; Z91.040 Latex allergy status; Z91.5 Personal history of self-harm; Z88.7 Allergy status to serum and vaccine; Z88.8 Allergy status to other drugs, medicaments and biological substances; S61.012A Laceration without foreign body of left thumb without damage to nail, initial encounter; W26.0XXA Contact with knife, initial encounter
CPT/HCPCS: 12002; 36415; 80053; 80061; 80074; 80306; 80320; 81001; 83036; 83520; 84443; 85025; 93005; 94640; 99285

== ENCOUNTER → 2018-02-10 | Outpatient (CLI) | payer MEDICARE ==
[2018-02-10 14:16] LABS: HCT 48.1 % (34.0-46.0); HGB 15.2 gm/dL (11.4-16.0); Hypochromasia Slight; MCH 30.4 pg (25.0-35.0); MCHC 31.6 g/dL (31.0-37.0); MCV 96.1 fL (80.0-100.0); Mean Platelet Volume 7.6; Platelet Count 287 k/uL (150-450); RBC 5.01 m/uL (3.80-5.40); RDW 13.7 % (11.5-15.5)
[2018-02-10 14:36] LABS: Lithium 0.7 mmol/L
== END | disposition home or self-care (01) ==
LOC: LABWHC1 13:57
PROVIDERS: ATTEND Psychiatry & Neurology Psychiatry
DX: F31.60 Bipolar disorder, current episode mixed, unspecified (principal); Z79.899 Other long term (current) drug therapy
CPT/HCPCS: 36415; 80178; 82565; 85027

== ENCOUNTER → 2018-08-02 | Outpatient (CLI) | payer MEDICARE ==
[2018-08-02 15:12] LABS: Appearance,Urine Cloudy (Clear); Bacteria,Urine Rare /hpf; Bilirubin,Urine Negative (Negative); Blood,Urine Negative (Negative); Budding Yeast,Urine Few /hpf; Color,Urine Yellow; Glucose,Urine (UA) Negative (Negative); Ketones,Urine Negative (Negative); Leukocyte Esterase,Urine Negative (Negative); Mucus,Urine Rare /hpf; Nitrite,Urine Negative (Negative); Protein,Urine Negative (Negative); RBC,Urine 1 /hpf (0-5); Specific Gravity,Urine 1.012 (1.001-1.035); Squamous Epithelial Cell,Urine <1 /hpf (0-4)
[2018-08-02 15:23] LABS: Basophils # (A) 0.1 k/uL (0-0.2); Basophils % (A) 1 %; Eosinophils # (A) 0.2 k/uL (0-0.7); Eosinophils % (A) 3 %; HGB 13.7 gm/dL (11.4-16.0); Hypochromasia Slight; Lymphocytes # (A) 1.5 k/uL (1.0-4.8); Lymphocytes % (A) 23 %; MCH 29.9 pg (25.0-35.0); MCHC 29.8 g/dL (31.0-37.0); MCV 100.2 fL (80.0-100.0); Mean Platelet Volume 7.8; Monocytes # (A) 0.4 k/uL (0-1.0); Monocytes % (A) 6 %; Neutrophils # (A) 4.1 k/uL (1.3-7.7); Neutrophils % (A) 65 %; Platelet Count 206 k/uL (150-450); RBC 4.59 m/uL (3.80-5.40); RDW 13.1 % (11.5-15.5); WBC 6.2 k/uL (3.8-10.6)
[2018-08-02 15:40] LABS: ALT 25 U/L (9-52); AST 24 U/L (14-36); Albumin 4.1 g/dL (3.5-5.0); Alkaline Phosphatase 73 U/L (38-126); Anion Gap 8 mmol/L; Blood Urea Nitrogen 10 mg/dL (7-17); Carbon Dioxide 27 mmol/L (22-30); Chloride 105 mmol/L (98-107); Glucose 85 mg/dL (74-99); Potassium 4.2 mmol/L (3.5-5.1); Sodium 140 mmol/L (137-145); Total Bilirubin 0.5 mg/dL (0.2-1.3); Total Protein 6.9 g/dL (6.3-8.2)
== END | disposition home or self-care (01) ==
LOC: LABWHC1 13:59
PROVIDERS: ATTEND Psychiatry & Neurology Psychiatry
DX: I10 Essential (primary) hypertension (principal); F31.60 Bipolar disorder, current episode mixed, unspecified; Z79.899 Other long term (current) drug therapy
CPT/HCPCS: 36415; 80053; 80178; 81001; 84443; 85025

== ENCOUNTER → 2018-10-04 | Outpatient (CLI) | payer MEDICARE ==
[2018-10-05 03:07] LABS: Anion Gap 6.7 mmol/L (4.00-12.00); Calcium 9.8 mg/dL (8.7-10.3); Carbon Dioxide 26.3 mmol/L (21.6-31.8); Lithium 0.6 mmol/L (1.0-1.2); Potassium 4.3 mmol/L (3.5-5.5)
== END | disposition home or self-care (01) ==
LOC: LABWHC1 16:06
PROVIDERS: ATTEND Psychiatry & Neurology Psychiatry
DX: F31.60 Bipolar disorder, current episode mixed, unspecified (principal); Z79.899 Other long term (current) drug therapy
CPT/HCPCS: 36415; 80048; 80178; 84443

== ENCOUNTER 2019-06-25 15:57 | Inpatient (IN) | payer MEDICARE ==
--- NOTE | 2019-06-25 17:23 | ED ---
Psych HPI - General Chief Complaint: Psychiatric Symptoms Stated Complaint: EPS eval Time Seen by Provider: 06/25/19 16:26 Source: patient, RN notes reviewed, old records reviewed Mode of arrival: ambulatory - History of Present Illness Initial Comments: This is a 63-year-old female the ER for evaluation. This patient presents today for evaluation regarding altered mental status and psychiatric evaluation. Patient is having suicidal ideations and suicidal thoughts and I drugs or alcohol MD Complaint: suicidal ideation -: unknown Associated Psychiatric Symptoms: depression, suicidal ideation History of same: Yes Quality: constant Improves With: none Worsens With: none Context: not taking psychiatric medications, significant life stressor Associated Symptoms: denies other symptoms Treatments Prior to Arrival: placed on mental health hold If Self Harm: admits thoughts of self harm - Related Data Home Medications Medication Instructions Recorded Confirmed Levothyroxine Sodium [Levoxyl] 50 mcg PO DAILY 04/04/14 06/25/19 Calcium Carbonate [Calcium] 600 mg PO DAILY 01/12/17 06/25/19 Cholecalciferol [Vitamin D3 (25 1,000 unit PO DAILY 01/12/17 06/25/19 Mcg = 1000 Iu)] Cariprazine HCl [Vraylar] 3 mg PO BID 06/25/19 06/25/19 HYDROcodone/APAP 10-325MG [[place] 1 tab PO Q6H PRN 06/25/19 06/25/19 10-325] Multivitamins, Thera [Multivitamin 1 tab PO DAILY 06/25/19 06/25/19 (formulary)] Previous Rx's Medication Instructions Recorded Albuterol Inhaler [Ventolin Hfa 2 puff INHALATION RT-QID PRN 30 01/27/18 Inhaler] Days #2 puff amLODIPine [Norvasc] 10 mg PO DAILY 30 Days #30 tab 01/27/18 Allergies Allergy/AdvReac Type Severity Reaction Status Date / Time influenza virus vaccine qs Allergy Unknown Unknown Verified 06/25/19 17:57 [id number] (36 mos, up) [From Fluarix Quad] latex Allergy Unknown Rash/Hives Verified 06/25/19 17:57 duloxetine HCl AdvReac Unknown INCREASED Verified 06/25/19 17:57 [From Cymbalta] DEPRESSION Review of Systems ROS Statement: Those systems with pertinent positive or pertinent negative responses have been documented in the HPI. ROS Other: All systems not noted in ROS Statement are negative. Past Medical History Past Medical History: COPD, Hypertension, Musculoskeletal Disorder, Thyroid Disorder Additional Past Medical History / Comment(s): CHRONIC BACK PAIN, OCCASIONAL DIZ ZINESS. History of Any Multi-Drug Resistant Organisms: None Reported Past Surgical History: Section, Orthopedic Surgery, Tonsillectomy Additional Past Surgical History / Comment(s): left shoulder, RIGHT HIP SURGERY Past Anesthesia/Blood Transfusion Reactions: No Reported Reaction Past Psychological History: Anxiety, Bipolar, Depression, Panic Disorder Smoking Status: Current every day smoker Past Alcohol Use History: None Reported Past Drug Use History: None Reported - Past Family History Mother Family Medical History: Cancer, CVA/TIA Additional Family Medical History / Comment(s): PANCREATIC CANCER General Exam Limitations: no limitations General appearance: alert, in no apparent distress Head exam: Present: atraumatic, normocephalic, normal inspection Eye exam: Present: normal appearance, PERRL, EOMI. Absent: scleral icterus, conjunctival injection, periorbital swelling ENT exam: Present: normal exam, mucous membranes moist Neck exam: Present: normal inspection. Absent: tenderness, meningismus, lymphadenopathy Respiratory exam: Present: normal lung sounds bilaterally. Absent: respiratory distress, wheezes, rales, rhonchi, stridor Cardiovascular Exam: Present: regular rate, normal rhythm, normal heart sounds. Absent: systolic murmur, diastolic murmur, rubs, gallop, clicks GI/Abdominal exam: Present: soft, normal bowel sounds. Absent: distended, tenderness, guarding, rebound, rigid Extremities exam: Present: normal inspection, full ROM, normal capillary refill. Absent: tenderness, pedal edema, joint swelling, calf tenderness Back exam: Present: normal inspection Neurological exam: Present: alert, oriented X3, CN II-XII intact Psychiatric exam: Present: normal affect, normal mood Skin exam: Present: warm, dry, intact, normal color. Absent: rash Course Vital Signs 06/25/19 16:12 Temperature 98.4 F Pulse Rate 78 Respiratory 22 Rate Blood Pressure 140/87 O2 Sat by Pulse 93 L Oximetry - Reevaluation(s) Reevaluation #1: 06/25/19 17:22 Medical clear for psychiatric evaluation Medical Decision Making - Medical Decision Making 63-year-old female the ER for evaluation of mental illness, suicidal thoughts, A she was seen and evaluated with psychiatry, patient be admitted for psychiatric evaluation and treatment - Lab Data Result diagrams: 06/25/19 18:03 Lab Results 06/25/19 06/25/19 Range/Units 17:35 18:03 WBC 7.4 (3.8-10.6) k/uL RBC 5.17 (3.80-5.40) m/uL Hgb 15.6 (11.4-16.0) gm/dL Hct 47.1 H (34.0-46.0) % MCV 91.2 (80.0-100.0) fL MCH 30.2 (25.0-35.0) pg MCHC 33.1 (31.0-37.0) g/dL RDW 15.6 H (11.5-15.5) % Plt Count 238 (150-450) k/uL Neutrophils % 64 % Lymphocytes % 27 % Monocytes % 5 % Eosinophils % 2 % Basophils % 2 % Neutrophils # 4.7 (1.3-7.7) k/uL Lymphocytes # 2.0 (1.0-4.8) k/uL Monocytes # 0.3 (0-1.0) k/uL Eosinophils # 0.2 (0-0.7) k/uL Basophils # 0.1 (0-0.2) k/uL Urine Color Light Yellow Urine Appearance Clear (Clear) Urine pH 7.0 (5.0-8.0) Ur Specific [place] 1.004 (1.001-1.035) Urine Protein Negative (Negative) Urine Glucose (UA) Negative (Negative) Urine Ketones Negative (Negative) Urine Blood Negative (Negative) Urine Nitrite Negative (Negative) Urine Bilirubin Negative (Negative) Urine Urobilinogen <2.0 (<2.0) mg/dL Ur Leukocyte Esterase Negative (Negative) Urine Opiates Screen Not Detected (NotDetected) Ur Oxycodone Screen Not Detected (NotDetected) Urine Methadone Screen Not Detected (NotDetected) Ur Propoxyphene Screen Not Detected (NotDetected) Ur Barbiturates Screen Not Detected (NotDetected) U Tricyclic Antidepress Not Detected (NotDetected) Ur Phencyclidine Scrn Not Detected (NotDetected) Ur Amphetamines Screen Not Detected (NotDetected) U Methamphetamines Scrn Not Detected (NotDetected) U Benzodiazepines Scrn Not Detected (NotDetected) Urine Cocaine Screen Not Detected (NotDetected) U Marijuana (THC) Screen Not Detected (NotDetected) Disposition Clinical Impression: Bipolar depression, Suicidal ideation, Depression Disposition: TRANSFER TO PSYCH HOSP/UNIT Condition: Fair Is patient prescribed a controlled substance at d/c from ED?: No Referrals: Mitul Rodriguez MD [Primary Care Provider] - 1-2 days
[2019-06-25 17:47] LABS: Appearance,Urine Clear (Clear); Bilirubin,Urine Negative (Negative); Blood,Urine Negative (Negative); Color,Urine Light Yellow; Glucose,Urine (UA) Negative (Negative); Ketones,Urine Negative (Negative); Leukocyte Esterase,Urine Negative (Negative); Nitrite,Urine Negative (Negative); Protein,Urine Negative (Negative); Specific Gravity,Urine 1.004 (1.001-1.035); Urobilinogen,Urine <2.0 mg/dL (<2.0)
[2019-06-25 17:56] LABS: Amphetamine Screen,Urine Not Detected (NotDetected); Barbiturate Screen,Urine Not Detected (NotDetected); Benzodiazepines Screen,Urine Not Detected (NotDetected); Cocaine Screen,Urine Not Detected (NotDetected); Methadone Screen, Urine Not Detected (NotDetected); Opiate Screen,Urine Not Detected (NotDetected); Oxycodone Screen, Urine Not Detected (NotDetected); Phencyclidine Screen,Urine Not Detected (NotDetected); Tricyclic Antidepressant,Urine Not Detected (NotDetected); Urn Cannabinoid Scrn Not Detected (NotDetected)
[2019-06-25 18:17] LABS: Basophils # (A) 0.1 k/uL (0-0.2); Basophils % (A) 2 %; Eosinophils # (A) 0.2 k/uL (0-0.7); Eosinophils % (A) 2 %; HCT 47.1 % (34.0-46.0); HGB 15.6 gm/dL (11.4-16.0); Lymphocytes % (A) 27 %; MCH 30.2 pg (25.0-35.0); MCHC 33.1 g/dL (31.0-37.0); MCV 91.2 fL (80.0-100.0); Mean Platelet Volume 7.2; Monocytes # (A) 0.3 k/uL (0-1.0); Monocytes % (A) 5 %; Neutrophils # (A) 4.7 k/uL (1.3-7.7); Neutrophils % (A) 64 %; Platelet Count 238 k/uL (150-450); RBC 5.17 m/uL (3.80-5.40); RDW 15.6 % (11.5-15.5); WBC 7.4 k/uL (3.8-10.6)
[2019-06-25 18:27] LABS: Acetaminophen <10.0 ug/mL; African American GFR (CKD) >90 (>60 ml/min/1.73 sqM); Alcohol <10 mg/dL; Anion Gap 7 mmol/L; Blood Urea Nitrogen 11 mg/dL (7-17); Calcium 10.2 mg/dL (8.4-10.2); Carbon Dioxide 31 mmol/L (22-30); Chloride 104 mmol/L (98-107); Glucose 99 mg/dL (74-99); Potassium 3.8 mmol/L (3.5-5.1); Salicylate <1.0 mg/dL; Sodium 142 mmol/L (137-145)
[2019-06-25] MEDS ORDERED: ALBUTEROL INHALER 60 PUFF/8 GM INHALER INHALATION PRN (19:00)
[2019-06-25] MEDS ORDERED: ZIPRASIDONE 20 MG VIAL IM PRN (19:02)
[2019-06-25] MEDS ORDERED: MAG HYDROX/AL HYDROX/SIMETH 30 ML CUP PO PRN (19:02)
[2019-06-25] MEDS ORDERED: MAGNESIUM HYDROXIDE 2,400 MG/10 ML CUP PO PRN (19:02)
[2019-06-25] MEDS ORDERED: ACETAMINOPHEN TAB 325 MG TAB PO PRN (19:02)
[2019-06-25] MEDS ORDERED: LORazepam 2 MG/ML INJ IM PRN (19:07)
[2019-06-25] MEDS: NICOTINE 14MG/24HR PATCH TRANSDERM SCH (21:31)
[2019-06-26] MEDS: LEVOTHYROXINE 50 MCG TAB PO SCH (06:24)
[2019-06-26 08:21] LABS: ALT 27 U/L (9-52); AST 24 U/L (14-36); African American GFR (CKD) >90 (>60 ml/min/1.73 sqM); Alkaline Phosphatase 64 U/L (38-126); Anion Gap 5 mmol/L; Blood Urea Nitrogen 12 mg/dL (7-17); Calcium 9.9 mg/dL (8.4-10.2); Carbon Dioxide 33 mmol/L (22-30); Chloride 105 mmol/L (98-107); Cholesterol 158 mg/dL (<200); Glucose 93 mg/dL (74-99); HDL Cholesterol 54 mg/dL (40-60); LDL Cholesterol,Calculated 90 mg/dL (0-99); Potassium 3.9 mmol/L (3.5-5.1); Sodium 143 mmol/L (137-145); Total Bilirubin 0.8 mg/dL (0.2-1.3); Total Protein 6.8 g/dL (6.3-8.2); Triglycerides 70 mg/dL (<150)
[2019-06-26] MEDS: MULTIVITAMINS, THERA 1 EACH TAB PO SCH (09:42)
[2019-06-26] MEDS: CHOLECALCIFEROL 1,000 UNIT TAB PO SCH (09:42)
[2019-06-26] MEDS: amLODIPine 10 MG TAB PO SCH (09:42)
[2019-06-26] MEDS: CALCIUM CARBONATE 500 MG CHEWABLE PO SCH (09:42)
[2019-06-26 09:43] VITALS: BMI 19.0
[2019-06-26] MEDS: NICOTINE 14MG/24HR PATCH TRANSDERM SCH (09:45)
--- NOTE | 2019-06-26 13:20 | P.HP ---
Psychiatric H&P - . H&P Date: 06/26/19 History & Physical: Allergies Allergy/AdvReac Type Severity Reaction Status Date / Time influenza virus vaccine qs Allergy Unknown Unknown Verified 06/25/19 17:57 [id number] (36 mos, up) From Fluarix Quad latex Allergy Unknown Rash/Hives Verified 06/25/19 17:57 duloxetine HCl AdvReac Unknown INCREASED Verified 06/25/19 17:57 From Enmanuelmbalta DEPRESSION Vital Signs Temp 97.8 F 06/26/19 06:40 Pulse 88 06/26/19 09:40 Resp 16 06/26/19 09:40 BP 99/64 06/26/19 09:40 Pulse Ox 99 06/25/19 18:55 Intake & Output 06/25/19 06/26/19 06/26/19 18:59 06:59 18:59 Weight 46.266 kg 47.179 kg 47.179 kg Laboratory Last Values WBC 7.4 k/uL (3.8-10.6) 06/25/19 18:03 RBC 5.17 m/uL (3.80-5.40) 06/25/19 18:03 Hgb 15.6 gm/dL (11.4-16.0) 06/25/19 18:03 Hct 47.1 % (34.0-46.0) H 06/25/19 18:03 MCV 91.2 fL (80.0-100.0) 06/25/19 18:03 MCH 30.2 pg (25.0-35.0) 06/25/19 18:03 MCHC 33.1 g/dL (31.0-37.0) 06/25/19 18:03 RDW 15.6 % (11.5-15.5) H 06/25/19 18:03 Plt Count 238 k/uL (150-450) 06/25/19 18:03 Neutrophils % 64 % 06/25/19 18:03 Lymphocytes % 27 % 06/25/19 18:03 Monocytes % 5 % 06/25/19 18:03 Eosinophils % 2 % 06/25/19 18:03 Basophils % 2 % 06/25/19 18:03 Neutrophils # 4.7 k/uL (1.3-7.7) 06/25/19 18:03 Lymphocytes # 2.0 k/uL (1.0-4.8) 06/25/19 18:03 Monocytes # 0.3 k/uL (0-1.0) 06/25/19 18:03 Eosinophils # 0.2 k/uL (0-0.7) 06/25/19 18:03 Basophils # 0.1 k/uL (0-0.2) 06/25/19 18:03 Sodium 143 mmol/L (137-145) 06/26/19 07:54 Potassium 3.9 mmol/L (3.5-5.1) 06/26/19 07:54 Chloride 105 mmol/L (98-107) 06/26/19 07:54 Carbon Dioxide 33 mmol/L (22-30) H 06/26/19 07:54 Anion Gap 5 mmol/L 06/26/19 07:54 BUN 12 mg/dL (7-17) 06/26/19 07:54 Creatinine 0.78 mg/dL (0.52-1.04) 06/26/19 07:54 Est GFR (CKD-EPI)AfAm >90 (>60 ml/min/1.73 sqM) 06/26/19 07:54 Est GFR (CKD-EPI)NonAf 82 (>60 ml/min/1.73 sqM) 06/26/19 07:54 Glucose 93 mg/dL (74-99) 06/26/19 07:54 Calcium 9.9 mg/dL (8.4-10.2) 06/26/19 07:54 Total Bilirubin 0.8 mg/dL (0.2-1.3) 06/26/19 07:54 AST 24 U/L (14-36) 06/26/19 07:54 ALT 27 U/L (9-52) 06/26/19 07:54 Alkaline Phosphatase 64 U/L (38-126) 06/26/19 07:54 Total Protein 6.8 g/dL (6.3-8.2) 06/26/19 07:54 Albumin 4.0 g/dL (3.5-5.0) 06/26/19 07:54 Triglycerides 70 mg/dL (<150) 06/26/19 07:54 Cholesterol 158 mg/dL (<200) 06/26/19 07:54 LDL Cholesterol, Calc 90 mg/dL (0-99) 06/26/19 07:54 HDL Cholesterol 54 mg/dL (40-60) 06/26/19 07:54 TSH 4.860 mIU/L (0.465-4.680) H 06/26/19 07:54 Urine Color Light Yellow 06/25/19 17:35 Urine Appearance Clear (Clear) 06/25/19 17:35 Urine pH 7.0 (5.0-8.0) 06/25/19 17:35 Ur Specific [place] 1.004 (1.001-1.035) 06/25/19 17:35 Urine Protein Negative (Negative) 06/25/19 17:35 Urine Glucose (UA) Negative (Negative) 06/25/19 17:35 Urine Ketones Negative (Negative) 06/25/19 17:35 Urine Blood Negative (Negative) 06/25/19 17:35 Urine Nitrite Negative (Negative) 06/25/19 17:35 Urine Bilirubin Negative (Negative) 06/25/19 17:35 Urine Urobilinogen <2.0 mg/dL (<2.0) 06/25/19 17:35 Ur Leukocyte Esterase Negative (Negative) 06/25/19 17:35 Salicylates <1.0 mg/dL 06/25/19 18:03 Urine Opiates Screen Not Detected (NotDetected) 06/25/19 17:35 Ur Oxycodone Screen Not Detected (NotDetected) 06/25/19 17:35 Urine Methadone Screen Not Detected (NotDetected) 06/25/19 17:35 Ur Propoxyphene Screen Not Detected (NotDetected) 06/25/19 17:35 Acetaminophen <10.0 ug/mL 06/25/19 18:03 Ur Barbiturates Screen Not Detected (NotDetected) 06/25/19 17:35 U Tricyclic Antidepress Not Detected (NotDetected) 06/25/19 17:35 Ur Phencyclidine Scrn Not Detected (NotDetected) 06/25/19 17:35 Ur Amphetamines Screen Not Detected (NotDetected) 06/25/19 17:35 U Methamphetamines Scrn Not Detected (NotDetected) 06/25/19 17:35 U Benzodiazepines Scrn Not Detected (NotDetected) 06/25/19 17:35 Urine Cocaine Screen Not Detected (NotDetected) 06/25/19 17:35 U Marijuana (THC) Screen Not Detected (NotDetected) 06/25/19 17:35 Serum Alcohol <10 mg/dL 06/25/19 18:03 06/26/19 12:44 IDENTIFYING DATA: Patient is a 63-year-old female who lives with her in a house has 3 kids 2 grandkids and currently on Social Security disability. HPI: Patient presented to the hospital with complaints of altered mental status, increase in suicidal ideation and depression. Patient states that she has been tearful claims her mood is "horrible" and states that she continues to be feeling scared of abandonment and scared of any changes. She states that she has been having increase in her suicidal ideation since March of this year. Patient claims that in March her primary care physician switched her off of the lithium as it was affecting her thyroid and put her on Vraylar for her bipolar disorder. Patient claims that she was attempting to adjust the dose herself and felt that she was having significant problems with it. Patient claims that she isn't having poor memory and feeling isolated isolative and scared. Patient states that she used to be on lithium and Lamictal which was a good combination along with Lexapro which really helped her mood. Patient also admits to having increase in her anxiety. She states that she is worried about going home as her may leave her soon to go on a hunting trip. Patient admits to noncompliance with medication and has been off her meds for months. Patient currently denies any manic symptoms including flight of ideas racing thoughts and increased in goal directed behavior. Patient admits to having poor sleep at night and poor energy. Patient denies any suicidal or homicidal ideations intent or plan. At this time patient denies any auditory or visual hallucinations. Patient admits to using cigarettes 1 pack per day, and denies alcohol or any other recreational drug use at this time. PAST PSYCHIATRIC HISTORY: Patient has a long history of bipolar disorder approximately 30 years. She claims that she does not have a psychiatrist which she follows up and sees her primary care doctor for her medications. She states that her last admission was in January 2018 and she was put on lithium 450 mg twice a day and Lamictal 400 mg daily for mood stabilization. Patient admits to 1 previous overdose suicide attempt approximately 2 years ago. PMH: COPD, hypertension, thyroid disorder. ALLERGIES: As per EMR CHEMICAL DEPENDENCY HISTORY: As per HPI above. FAMILY PSYCHIATRIC/SUBSTANCE USE HISTORY: Denies SOCIAL HISTORY: Patient claims she grew up in [facility] and obtained her GED. 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 Patient currently lives with her in a house and has 3 kids 2 grandkids and currently collects Social Security disability. MENTAL STATUS EXAM: General Appearance: Patient appears to be stated age is alert, pleasant, and cooperative. Patient is labile and soft spoken often tearful during interview. Behavior: Patient is calmly seated without any agitated behavior. Speech: Patient's speech is fluent and nonpressured. Mood/Affect: Patient reports their mood is "depressed", affect is congruent and labile Suicidality/Homicidality: Patient denies having any suicidal or homicidal ideat ion intent or plan. Perceptions: Patient denies any auditory or visual hallucinations. Though content/process: There is no evidence of any delusional thought content and thought process is linear and goal-directed. Memory and concentration: AOX3, grossly intact for the purposes of this session. Can spell "WORLD" backwards Judgment and insight: Poor STRENGTHS/WEAKNESSES: Good family support, poor coping skills and medication noncompliance INTELLECT: Average IMPRESSIONS: Bipolar disorder type I currently depressed Nicotine use disorder PLAN: -Patient is admitted under voluntary status to [facility]HU for stabilization of psychiatric symptoms and safety. Patient signed adult voluntary form and medication consent and is placed in patient's chart. -Will start patient on Lamictal 25 mg twice a day for mood stabilization. We'll also start patient on trazodone 25 mg daily at bedtime for mood and insomnia. -Ativan plus Geodon PRN for agitation/aggression -UDS was negative on admission. -Patient was informed of the risks, benefits and side effects of the medication and patient verbally consented to taking the medications. Patient signed med consent form and was placed in chart. -NRT was offered and patient accepted. Ordered nicotine patch. -SW on board for discharge planning. Patient likely to be discharged home with outpatient follow-up once psychiatrically stabilized. 06/26/19 13:10
[2019-06-26] MEDS: lamoTRIgine 25 MG TAB PO SCH ×2 (14:02→20:37)
[2019-06-26] MEDS: LORazepam 1 MG TAB PO PRN (14:02)
[2019-06-26 19:06] LABS: Hemoglobin A1C 5.5 % (4.0-6.0)
[2019-06-26] MEDS ORDERED: traZODone HCL 50 MG TAB PO SCH (21:00)
--- NOTE | 2019-06-26 22:03 | P.MDCNMH ---
History of Present Illness H&P Date: 06/26/19 Chief Complaint: Depression Patient is a 63-year-old female with a known history of hypertension, hypothyroidism and COPD, he currently everyday smoker came to ER due to depre ssion and suicidal thoughts recently. Patient presents to ER for evolution of mental status and psychiatric evaluation. Patient otherwise denied any plan for suicide attempt. Patient does smoke daily. Occasional alcohol use. Denied any marijuana or drugs IVDU. Currently denied any complaints of chest pain or shortness of breath. No nausea vomiting or abdominal pain. No diarrhea or dysuria. No recent illnesses or sick contacts at home. Review of Systems Constitutional: Patient denies any fever or chills . No generalized weakness or weight loss. Abdomen: Patient denied nausea vomiting and diarrhea and abdominal pain. Cardiovascular: Patient denies any chest pain or short of breath no palpitations. Respiratory: patient denied any cough is from production. No shortness of breath Neurologic: Patient denied any numbness or tingling headache. Musculoskeletal: Patient denies any complaints of joint swelling or deformity. Skin: Negative Psychiatric: Depression Endocrine: No heat or cold intolerance. No recent weight gain. Genitourinary: No dysuria or hematuria. All other 14 point ROS negative except the above Past Medical History Past Medical History: COPD, Hypertension, Musculoskeletal Disorder, Thyroid Disorder Additional Past Medical History / Comment(s): CHRONIC BACK PAIN, OCCASIONAL DIZZINESS. History of Any Multi-Drug Resistant Organisms: None Reported Past Surgical History: Section, Orthopedic Surgery, Tonsillectomy Additional Past Surgical History / Comment(s): left shoulder, RIGHT HIP SURGERY Past Anesthesia/Blood Transfusion Reactions: No Reported Reaction Past Psychological History: Anxiety, Bipolar, Depression, Panic Disorder Smoking Status: Current every day smoker Past Alcohol Use History: None Reported Past Drug Use History: None Reported - Past Family History Mother Family Medical History: Cancer, CVA/TIA Additional Family Medical History / Comment(s): PANCREATIC CANCER Medications and Allergies Home Medications Medication Instructions Recorded Confirmed Type Levothyroxine Sodium [Levoxyl] 50 mcg PO DAILY 04/04/14 06/25/19 History Calcium Carbonate [Calcium] 600 mg PO DAILY 01/12/17 06/25/19 History Cholecalciferol [Vitamin D3 (25 1,000 unit PO DAILY 01/12/17 06/25/19 History Mcg = 1000 Iu)] Albuterol Inhaler [Ventolin Hfa 2 puff INHALATION RT-QID PRN 30 01/27/18 0 06/25/19 Rx Inhaler] Days #2 puff amLODIPine [Norvasc] 10 mg PO DAILY 30 Days #30 tab 01/27/18 06/25/19 Rx Cariprazine HCl [Vraylar] 3 mg PO BID 06/25/19 06/25/19 History HYDROcodone/APAP 10-325MG [[place] 1 tab PO Q6H PRN 06/25/19 06/25/19 History 10-325] Multivitamins, Thera [Multivitamin 1 tab PO DAILY 06/25/19 06/25/19 History (formulary)] Allergies Allergy/AdvReac Type Severity Reaction Status Date / Time influenza virus vaccine qs Allergy Unknown Unknown Verified 06/25/19 17:57 [id number] (36 mos, up) [From Fluarix Quad] latex Allergy Unknown Rash/Hives Verified 06/25/19 17:57 duloxetine HCl AdvReac Unknown INCREASED Verified 06/25/19 17:57 [From Cymbalta] DEPRESSION Physical Exam Vitals: Vital Signs Temp Pulse Pulse Resp BP BP Pulse Ox 06/26/19 09:40 88 16 99/64 06/26/19 06:40 97.8 F 69 16 108/66 06/25/19 19:22 98.5 F 69 18 114/70 06/25/19 18:55 98.2 F 67 18 134/73 99 06/25/19 16:12 98.4 F 78 22 140/87 93 L Intake and Output 06/25/19 06/26/19 06/26/19 22:59 06:59 14:59 Other: Weight 47.179 kg 47.179 kg PHYSICAL EXAMINATION: Patient is lying in the bed comfortably, no acute distress, awake alert and oriented.. HEENT: Normocephalic. Neck is supple. Pupils reactive. Nostrils clear. Oral cavity is moist. Ears reveal no drainage. Neck reveals no JVD, carotid bruits, or thyromegaly. CHEST EXAMINATION: Trachea is central. Symmetrical expansion. Lung anglin clear to auscultation and percussion. CARDIAC: Normal S1, S2 with no gallops. No murmurs ABDOMEN: Soft. Bowel sounds normal. No organomegaly. No abdominal bruits. Extremities: reveal no edema. No clubbing or cyanosis Neurologically awake, alert, oriented x3 with well-coordinated movements. No focal deficits noted Skin: No rash or skin lesions. Psychiatric: Coperative. Nonsuicidal Musculoskeletal: No joint swelling or deformity. Normal range of motion. Cranial Nerve Examination - Cranial Nerves Cranial Nerve I- Olfactory: Intact Cranial Nerve II- Optic: Intact Cranial Nerve III- Oculomotor: Intact Cranial Nerve IV- Trochlear: Intact Cranial Nerve V- Trigeminal: Intact Cranial Nerve - Abducens: Intact Cranial Nerve VII- Facial: Intact Cranial Nerve VIII- Auditory: Intact Cranial Nerve IX- Glossopharyngeal: Intact Cranial Nerve X- Vagus: Intact Cranial Nerve XI- Accessory: Intact Cranial Nerve XII- Hypoglossal: Intact Results CBC & Chem 7: 06/25/19 18:03 06/26/19 07:54 Labs: Abnormal Lab Results - Last 24 Hours (Table) 06/25/19 06/25/19 06/26/19 Range/Units 18:03 18:03 07:54 Hct 47.1 H (34.0-46.0) % RDW 15.6 H (11.5-15.5) % Carbon Dioxide 31 H 33 H (22-30) mmol/L TSH 4.860 H (0.465-4.680) mIU/L Assessment and Plan Assessment: Bipolar disorder with depression currently Hypertension controlled COPD not in exacerbation Nicotine addiction Hypothyroidism Elevated TSH level but free T4 level is within normal limits. Chronic back pain Anxiety/depression/bipolar/panic disorder. Plan: Patient be continued on home blood pressure medications in the form of Norvasc. Continue with current dose of levothyroxine. Free T4 level is within normal limits. Otherwise continue the current management and will follow up closely. Continue with the pain medication. Smoking cessation has been counseled extensively. Further recommendations based on the clinical course. Thank you for your consult. Time with Patient: Greater than 30
[2019-06-27] MEDS: LEVOTHYROXINE 50 MCG TAB PO SCH (06:11)
[2019-06-27] MEDS: CALCIUM CARBONATE 500 MG CHEWABLE PO SCH (08:25)
[2019-06-27] MEDS: amLODIPine 10 MG TAB PO SCH (08:25)
[2019-06-27] MEDS: CHOLECALCIFEROL 1,000 UNIT TAB PO SCH (08:25)
[2019-06-27] MEDS: MULTIVITAMINS, THERA 1 EACH TAB PO SCH (08:25)
[2019-06-27] MEDS: NICOTINE 14MG/24HR PATCH TRANSDERM SCH ×2 (08:25→14:33)
[2019-06-27] MEDS: lamoTRIgine 25 MG TAB PO SCH ×2 (08:25→22:11)
--- NOTE | 2019-06-27 09:18 | P.PN ---
Progress Note - Text Progress Note Date: 06/27/19 Interval History: Patient was seen this morning sitting on the chair outside of the office and was agreeable to speak to manual writer. Patient continues to be tearful and claims that she is feeling depressed and has a low mood and states that she has been having thoughts about how her grandchildren and her kids do not have a need for her and in their lives. Patient claims that she is struggling finding meaning in her life as she approaches older adult hide and claims that she's had many other fa ammon members at her age which meets her scared. Patient claims that she is tolerating the medication well and has been visually inspecting her skin find no rashes. Patient claims that she did not sleep well last night slept around 6 hours poorly. She states that her energy is fair and appetite is okay. At this time patient denies any suicidal or homical ideations, intent or plan. Patient denies any auditory, visual hallucinations and denies any paranoia or delusions. Patient denies any side effects from the medications and has been compliant with meds. Mental Status Exam: General Appearance: Patient appears to be stated age is alert cooperative however appears to be very tearful and in mild distress. Behavior: [Patient is calmly seated without any agitated behavior.] Speech: Patient's speech is fluent and nonpressured. Mood/Affect: Mood is "depressed". affect is congruent and constricted. Suicidality/Homicidality: Patient denies having any suicidal or homicidal ideation intent or plan. Perceptions: Patient denies any auditory or visual hallucinations. Though content/process: [There is no evidence of any delusional thought content and thought process is linear and goal-directed.] Patient is preoccupied with depressive content. Memory and concentration: AOX3, grossly intact for the purposes of this session Judgment and insight: fair Assessment Bipolar disorder, currently depressed Nicotine use disorder Plan: -Patient continues to meet criteria for inpatient psychiatric admission for symptom stabilization and safety. -Medications: Will continue Lamictal 25 mg twice a day with plan to slowly titrate up. Patient denies any new rashes and was well-informed about the risk of a serious rash which may occur with this medication. Patient showed her arms and legs to manual writer and upon visual inspection no rash was seen. Will increase trazodone to 50 mg daily at bedtime for insomnia and mood. Will add Lexapro 5 mg daily with 1 dose now and slow titration up. -When necessary Geodon and Ativan for agitation/aggression. -SW on board for discharge planning. Patient likely to be discharged home upon stabilization.
[2019-06-27] MEDS: ESCITALOPRAM 5 MG TAB PO SCH (09:26)
[2019-06-27] MEDS ORDERED: traZODone HCL 50 MG TAB PO SCH (21:00)
[2019-06-27] MEDS: LORazepam 1 MG TAB PO PRN (21:22)
[2019-06-28] MEDS: LEVOTHYROXINE 50 MCG TAB PO SCH (07:01)
[2019-06-28] MEDS: NICOTINE 14MG/24HR PATCH TRANSDERM SCH (08:38)
[2019-06-28] MEDS: amLODIPine 10 MG TAB PO SCH (08:39)
[2019-06-28] MEDS: CALCIUM CARBONATE 500 MG CHEWABLE PO SCH (08:39)
[2019-06-28] MEDS: CHOLECALCIFEROL 1,000 UNIT TAB PO SCH (08:39)
[2019-06-28] MEDS: lamoTRIgine 25 MG TAB PO SCH (08:40)
[2019-06-28] MEDS: MULTIVITAMINS, THERA 1 EACH TAB PO SCH (08:40)
[2019-06-28] MEDS: ESCITALOPRAM 5 MG TAB PO SCH (08:41)
[2019-06-28] MEDS: LORazepam 1 MG TAB PO PRN ×2 (10:53→18:26)
--- NOTE | 2019-06-28 12:58 | P.PN ---
Progress Note - Text Progress Note Date: 06/28/19 Interval History: Patient was seen this morning wandering the hallways and was agreeable to speak to adjusto writer operator. Patient states that she is continuing to have pain which she has been dealing with chronically and asked adjusto writer operator to resume her home medication of [place] 10 mg. After checking maps, it is revealed that patient does take 10 mg a [place] 4 times a day however in hospital it was discussed that this will be continued at 3 times a day when necessary for pain. Patient verbally understood and agreed. She states that she feels like she is progressing and improving with regards to her mood and anxiety. She states that she is not as tearful as before and claims that she is hopeful for the future. Patient continues to discuss issues in her life and wants to be a part of her grandkids future and help raise them the way that she was raised. Patient states that she slept good last night however only because she took an Ativan. She claims that the trazodone is helping her sleep and would like to have the dose increased. Patient claims that she has been going to groups and finding them beneficial. She claims to have a good energy level and fair appetite. At this time patient denies any suicidal or homical ideations, intent or plan. Patient denies any auditory, visual hallucinations and denies any paranoia or delusions. Patient denies any side effects from the medications and has been compliant with meds. Mental Status Exam: General Appearance: Patient appears to be stated age is alert cooperative. Patient is not tearful today and then appears to have improved hygiene and grooming. Behavior: Patient is calmly seated without any agitated behavior. Speech: Patient's speech is fluent and nonpressured. Mood/Affect: Mood is "better". affect is congruent and with normal range. Suicidality/Homicidality: Patient denies having any suicidal or homicidal ideation intent or plan. Perceptions: Patient denies any auditory or visual hallucinations. Though content/process: There is no evidence of any delusional thought content and thought process is linear and goal-directed. Patient continues to have all or none thinking, catastrophizing. Memory and concentration: AOX3, grossly intact for the purposes of this session Judgment and insight: fair, improving Assessment Bipolar disorder, currently depressed Nicotine use disorder Plan: -Patient continues to meet criteria for inpatient psychiatric admission for symptom stabilization and safety. -Medications: Will continue increasing Lamictal to 75 mg twice a day with plan to slowly titrate up. Patient denies any new rashes and was well-informed about the risk of a serious rash which may occur with this medication. Patient showed her arms and legs to adjusto writer operator and upon visual inspection no rash was seen. Will increase trazodone to 75 mg daily at bedtime for insomnia and mood. Continue with Lexapro 5 mg daily for mood and anxiety. -Seaming Machine Operator checked maps for patient, she has been receiving [place] 10 mg tablets from the same provider regularly at 4 times a day dosing for pain. Discussed with patient that we can start on the unit 3 times a day when necessary for pain, patient verbally understood and agreed. -When necessary Geodon and Ativan for agitation/aggression. -SW on board for discharge planning. Patient likely to be discharged home upon stabilization. Likely discharge early next week after family meeting with .
[2019-06-28] MEDS: HYDROcodone/APAP 10-325MG 1 EACH TAB PO PRN (13:26)
[2019-06-28] MEDS ORDERED: traZODone HCL 50 MG TAB PO SCH (21:00)
[2019-06-29] MEDS: LEVOTHYROXINE 50 MCG TAB PO SCH (06:24)
[2019-06-29] MEDS: ESCITALOPRAM 5 MG TAB PO SCH (08:29)
[2019-06-29] MEDS: CHOLECALCIFEROL 1,000 UNIT TAB PO SCH (08:29)
[2019-06-29] MEDS: NICOTINE 14MG/24HR PATCH TRANSDERM SCH (08:29)
[2019-06-29] MEDS: amLODIPine 10 MG TAB PO SCH (08:29)
[2019-06-29] MEDS: CALCIUM CARBONATE 500 MG CHEWABLE PO SCH (08:29)
[2019-06-29] MEDS: MULTIVITAMINS, THERA 1 EACH TAB PO SCH (08:30)
[2019-06-29] MEDS ORDERED: lamoTRIgine 25 MG TAB PO SCH (09:00)
[2019-06-29] MEDS: LORazepam 1 MG TAB PO PRN ×2 (09:18→21:37)
[2019-06-29] MEDS ORDERED: hydrOXYzine PAMOATE 25 MG CAP PO PRN (14:30)
[2019-06-29] MEDS: HYDROcodone/APAP 10-325MG 1 EACH TAB PO PRN (14:40)
--- NOTE | 2019-06-29 15:07 | P.PN ---
Progress Note - Text Progress Note Date: 06/29/19 Interval History: Patient was seen taking part in group playing a game with other patients and was agreeable to speak to remote mortgage underwriter in the office. Patient appears to have a brighter affect this morning and was more talkative. Patient states that she's been thinking about other activities that she can do when she leaves the hospital including partaking in volunteering at her [employer]. She claims that she needs to work on her self-esteem and coping skills when she leaves. Patient claims that her medications are gradually helping her however she does state that her anxiety is still giving her problems while in the hospital and has been taking Ativan when necessary.. At this time patient denies any suicidal or homical ideations, intent or plan. Patient denies any auditory, visual hallucinations and denies any paranoia or delusions. Patient denies any side effects from the medications and has been compliant with meds. Mental Status Exam: General Appearance: Patient appears to be stated age is alert cooperative. Patient has improved hygiene and grooming. Behavior: Patient is calmly seated without any agitated behavior. Speech: Patient's speech is fluent and nonpressured. Mood/Affect: Mood is "good". affect is congruent and with normal range. Suicidality/Homicidality: Patient denies having any suicidal or homicidal ideation intent or plan. Perceptions: Patient denies any auditory or visual hallucinations. Though content/process: There is no evidence of any delusional thought content and thought process is linear and goal-directed. Patient continues to have all or none thinking, catastrophizing. Memory and concentration: AOX3, grossly intact for the purposes of this session Judgment and insight: fair, improving Assessment Bipolar disorder, currently depressed Nicotine use disorder Plan: -Patient continues to meet criteria for inpatient psychiatric admission for symptom stabilization and safety. -Medications: Will continue increasing Lamictal to 100 mg daily for mood stabilization. Patient denies any new rashes and was well-informed about the risk of a serious rash which may occur with this medication. Patient showed her arms and legs to remote mortgage underwriter and upon visual inspection no rash was seen. Will increase trazodone to 100 mg daily at bedtime for insomnia and mood. Continue with Lexapro 5 mg daily for mood and anxiety. -Will start Vistaril 25 mg every 8 hours when necessary for anxiety. Patient was encouraged to take this medication instead of Ativan when necessary. -Single Stroke Preformer checked maps for patient, she has been receiving [place] 10 mg tablets from the same provider regularly at 4 times a day dosing for pain. Discussed with patient that we can start on the unit 3 times a day when necessary for pain, patient verbally understood and agreed. -When necessary Geodon and Ativan for agitation/aggression. -SW on board for discharge planning. Patient likely to be discharged home upon stabilization. Likely discharge early next week after family meeting with .
[2019-06-29] MEDS: traZODone HCL 100 MG TAB PO SCH (21:31)
[2019-06-30] MEDS: LEVOTHYROXINE 50 MCG TAB PO SCH (06:24)
[2019-06-30] MEDS: lamoTRIgine 100 MG TAB PO SCH (08:38)
[2019-06-30] MEDS: MULTIVITAMINS, THERA 1 EACH TAB PO SCH (08:38)
[2019-06-30] MEDS: CHOLECALCIFEROL 1,000 UNIT TAB PO SCH (08:38)
[2019-06-30] MEDS: ESCITALOPRAM 5 MG TAB PO SCH (08:38)
[2019-06-30] MEDS: amLODIPine 10 MG TAB PO SCH (08:38)
[2019-06-30] MEDS: NICOTINE 14MG/24HR PATCH TRANSDERM SCH (08:38)
[2019-06-30] MEDS: CALCIUM CARBONATE 500 MG CHEWABLE PO SCH (08:39)
[2019-06-30] MEDS: LORazepam 1 MG TAB PO PRN (10:38)
--- NOTE | 2019-06-30 11:25 | P.PN ---
Progress Note - Text Progress Note Date: 06/30/19 (\\) Interval history: Patient was seen in the TV room and was agreeable to speak to program writer. Patient states that she feels that she is continuing to do better on her medications and also with group therapy and activities. She states that she is suffering from "empty nest syndrome" and claims that she needs to find a replacement for her children leaving. She states that she did feel a little bit tearful yesterday when people were discussing certain topics and group however today she feels better. Patient remains optimistic about the future and planning for discharge on Tuesday. Patient asked several questions about her medications and claims that she is attempting to cut back on Ativan when necessary for anxiety. He was encouraged patient to take Vistaril instead for anxiety. She states that she is sleeping well at night and eating well. At this time patient denies any suicidal or homicidal ideations intent or plan. Denies any Auditory or visual hallucinations. Patient denies any side effects from the medications and has been compliant with meds. Mental status exam: General Appearance: [Patient appears to be stated age is alert, pleasant, and cooperative.] Behavior: [No agitated behavior. Patient is calm and directable] Speech: Patient's speech is fluent and nonpressured. Mood/Affect: Mood is improving, affect is congruent and constricted. Suicidality/Homicidality: Patient denies having any suicidal or homicidal ideation intent or plan. Perceptions: Patient denies any auditory or visual hallucinations. Though content/process: [There is no evidence of any delusional thought content and thought process is linear and goal-directed.] Memory and concentration: AOX3, grossly intact for the purposes of this session Judgment and insight: improving Assessment/Plan: Continue with current diagnosis. Patient continues to meet criteria for inpatient psychiatric admission for symptom stabilization and safety.[Patient will be maintained on current psychotropic medication regimen.] Patient was encouraged to avoid Ativan as much as possible as a when necessary for anxiety and to use hydroxyzine/Vistaril instead. Monitor for medication compliance and for any psychotropic medication side effects. Will continue to monitor ongoing response to treatment.
[2019-06-30] MEDS: HYDROcodone/APAP 10-325MG 1 EACH TAB PO PRN (13:27)
[2019-06-30] MEDS: traZODone HCL 100 MG TAB PO SCH (20:09)
[2019-07-01] MEDS: LEVOTHYROXINE 50 MCG TAB PO SCH (06:29)
[2019-07-01] MEDS: NICOTINE 14MG/24HR PATCH TRANSDERM SCH (08:00)
[2019-07-01] MEDS: CALCIUM CARBONATE 500 MG CHEWABLE PO SCH (08:00)
[2019-07-01] MEDS: lamoTRIgine 100 MG TAB PO SCH (08:00)
[2019-07-01] MEDS: CHOLECALCIFEROL 1,000 UNIT TAB PO SCH (08:00)
[2019-07-01] MEDS: ESCITALOPRAM 5 MG TAB PO SCH (08:00)
[2019-07-01] MEDS: amLODIPine 10 MG TAB PO SCH (08:00)
[2019-07-01] MEDS: MULTIVITAMINS, THERA 1 EACH TAB PO SCH (08:09)
[2019-07-01] MEDS: HYDROcodone/APAP 10-325MG 1 EACH TAB PO PRN ×2 (08:29→15:15)
--- NOTE | 2019-07-01 11:35 | P.PN ---
Progress Note - Text Progress Note Date: 07/01/19 Interval history: Patient was seen playing cards in the day room and was agreeable to speak to credit underwriter. Patient states that she feels that she is continuing to do better on her medications and also with group therapy and activities. She thanked credit underwriter several times per "getting my meds right" and states that she wishes that she was on the medications earlier. Patient remains optimistic about the future and planning for discharge on Tuesday and claims that she is going to attempt to call her to have him come in for a family meeting on Tuesday prior to discharge. She states that she is sleeping well at night and eating well. At this time patient denies any suicidal or homicidal ideations intent or plan. Denies any Auditory or visual hallucinations. Patient denies any side effects from the medications and has been compliant with meds. Mental status exam: General Appearance: Patient appears to be stated age is alert, pleasant, and cooperative. Behavior: No agitated behavior. Patient is calm and directable Speech: Patient's speech is fluent and nonpressured. Mood/Affect: Mood is improving, affect is congruent and constricted. Suicidality/Homicidality: Patient denies having any suicidal or homicidal ideation intent or plan. Perceptions: Patient denies any auditory or visual hallucinations. Though content/process: There is no evidence of any delusional thought content and thought process is linear and goal-directed. Memory and concentration: AOX3, grossly intact for the purposes of this session Judgment and insight: improving Assessment/Plan: Continue with current diagnosis. Patient continues to meet criteria for inpatient psychiatric admission for symptom stabilization and safety. Patient will be maintained on current psychotropic medication regimen. Patient was encouraged to avoid Ativan as much as possible as a when necessary for anxiety and to use hydroxyzine/Vistaril instead. Monitor for medication compliance and for any psychotropic medication side effects. Will continue to monitor ongoing response to treatment.
[2019-07-01] MEDS: traZODone HCL 100 MG TAB PO SCH (20:31)
[2019-07-02] MEDS: LEVOTHYROXINE 50 MCG TAB PO SCH (06:22)
[2019-07-02 06:52] VITALS: RESP 16; TEMP 98.6
[2019-07-02] MEDS: amLODIPine 10 MG TAB PO SCH (08:34)
[2019-07-02] MEDS: lamoTRIgine 100 MG TAB PO SCH (08:34)
[2019-07-02] MEDS: ESCITALOPRAM 5 MG TAB PO SCH (08:34)
[2019-07-02] MEDS: MULTIVITAMINS, THERA 1 EACH TAB PO SCH (08:34)
[2019-07-02] MEDS: CALCIUM CARBONATE 500 MG CHEWABLE PO SCH (08:34)
[2019-07-02] MEDS: CHOLECALCIFEROL 1,000 UNIT TAB PO SCH (08:34)
[2019-07-02] MEDS: NICOTINE 14MG/24HR PATCH TRANSDERM SCH (08:34)
[2019-07-02] MEDS: HYDROcodone/APAP 10-325MG 1 EACH TAB PO PRN (09:11)
[2019-07-02 10:07] VITALS: BP 116/65; PULSE 76
--- NOTE | 2019-07-02 13:08 | P.DS ---
Providers Date of admission: 06/25/19 18:30 Expected date of discharge: 07/02/19 Attending physician: Stanley Birmingham MD Consults: 06/25/19 19:02 Consult Physician Routine Consulting Provider: Brian Lynn Consult Reason/Comments: H&P and medical Do you want consulting provider notified?: Yes Primary care physician: Mitul Rodriguez - Discharge Diagnosis(es) (1) Bipolar disorder with severe depression Current Visit: Yes Status: Acute Priority: High (2) Nicotine dependence Current Visit: Yes Status: Acute Hospital Course: Admission HPI: Patient is a 63-year-old female who lives with her in a house has 3 kids 2 grandkids and currently on Social Security disability. Patient presented to the hospital with complaints of altered mental status, increase in suicidal ideation and depression. Patient states that she has been tearful claims her mood is "horrible" and states that she continues to be feeling scared of abandonment and scared of any changes. She states that she has been having increase in her suicidal ideation since March of this year. Patient claims that in March her primary care physician switched her off of the lithium as it was affecting her thyroid and put her on Vraylar for her bipolar disorder. Patient claims that she was attempting to adjust the dose herself and felt that she was having significant problems with it. Patient claims that she isn't having poor memory and feeling isolated isolative and scared. Patient states that she used to be on lithium and Lamictal which was a good combination along with Lexapro which really helped her mood. Patient also admits to having increase in her anxiety. She states that she is worried about going home as her may leave her soon to go on a hunting trip. Patient admits to noncompliance with medication and has been off her meds for months. Patient currently denies any manic symptoms including flight of ideas racing thoughts and increased in goal directed behavior. Patient admits to having poor sleep at night and poor energy. Patient denies any suicidal or homicidal ideations intent or plan. At this time patient denies any auditory or visual hallucinations. Patient admits to using cigarettes 1 pack per day, and denies alcohol or any other recreational drug use at this time. Hospital course: Upon admission to the unit patient was initially tearful, had a depressed affect and mood and was feeling hopeless and helpless. Patient was however directable and agreeable to commence treatment on the unit and [facility] milieu. Patient got along well with other patients on the unit and followed unit protocol. Patient was compliant with the medications and denied any side effects throughout hospital course. Patient was started on Lamictal for mood stabilization and was titrated up to a dose of 100 mg daily. Patient was closely monitored for a rash and was informed of the implications of this if this occurred when to check her skin daily and follow up if she does notice a rash. Patient was also started on Lexapro 5 mg daily for mood and anxiety she was also started on trazodone and was titrated up to 100 mg daily at bedtime for mood and insomnia. Patient was using Ativan when necessary for anxiety on the unit however was transitioned to Vistaril 25 mg every 8 hours when necessary for anxiety which she tolerated well.. Patient spoke of his stressors and engaged in therapy both group and individual. Patient was also seen by medical team for history and physical exam. Throughout the course of the hospitalization patient gradually improved with regards to mood, anxiety , sleep and became future oriented with improved insight and judgment. On the day of discharge patient denied any suicidal or homicidal ideations intent or plan denied any auditory or visual hallucinations. Patient denied any paranoia and did not endorse any delusions. Patient does not have a significant history of substance abuse however was counseled on abstaining from all substances including alcohol and marijuana. Patient was also counseled on the medications and need for regular compliance and was encouraged to follow-up with their outpatient appointment for mental health and also for primary care. Patient was also encouraged to continue with long-term therapy as an outpatient which will assist her with feelings of emptiness, hopelessness and work on assertiveness, support and coping skills. Prior to discharge a family meeting will be arranged by high school social studies tutor to answer any questions and ensure safety upon discharge. Mental status exam: General Appearance: Patient appears to be stated age is alert cooperative. Patient has improved hygiene and grooming. Behavior: Patient is calmly seated without any agitated behavior. Speech: Patient's speech is fluent and nonpressured. Mood/Affect: Mood is "good". affect is congruent and with normal range. Suicidality/Homicidality: Patient denies having any suicidal or homicidal ideation intent or plan. Perceptions: Patient denies any auditory or visual hallucinations. Though content/process: There is no evidence of any delusional thought content and thought process is linear and goal-directed. Memory and concentration: AOX3, grossly intact for the purposes of this session Judgment and insight: Fair Impression: Bipolar disorder, currently depressed anxiety disorder unspecified Nicotine use disorder Plan: -Continue with discharge today as patient has improved and stabilized psychiatrically and no longer remains an imminent threat to herself and/or others. -Continue medications: Continue with Lamictal to 100 mg daily for mood stabilization. Patient denies any new rashes and was well-informed about the risk of a serious rash which may occur with this medication. Patient showed her arms and legs to ghost writer and upon visual inspection no rash was seen. Continue with trazodone to 100 mg daily at bedtime for insomnia and mood. Continue with Lexapro 5 mg daily for mood and anxiety. Continue with Vistaril 25 mg every 8 hours when necessary for anxiety. -Patient was counseled on the need for medication compliance and appropriate follow-up at mental health and also primary care for medical issues. Patient verbalized understanding and agreed. -Social work to give patient resources and follow-up information for her upcoming appointments at [facility] for her psychiatric care. Patient was also encouraged to continue with long-term therapy as an outpatient which will assist her with feelings of emptiness, hopelessness and work on assertiveness, support and coping skills. -Patient counseled on abstaining from recreational drugs and marijuana and alcohol. Was informed/educated on the adverse effects on their physical and mental health. -Patient was instructed to return to the hospital or seek immediate medical care if their psychiatric or medical systems do worsen or reoccur. Allergies Allergy/AdvReac Type Severity Reaction Status Date / Time influenza virus vaccine qs Allergy Unknown Unknown Verified 06/25/19 17:57 [id number] (36 mos, up) [From Fluarix Quad] latex Allergy Unknown Rash/Hives Verified 06/25/19 17:57 duloxetine HCl AdvReac Unknown INCREASED Verified 06/25/19 17:57 [From Cymbalta] DEPRESSION Laboratory Results WBC 7.4 k/uL (3.8-10.6) 06/25/19 18:03 RBC 5.17 m/uL (3.80-5.40) 06/25/19 18:03 Hgb 15.6 gm/dL (11.4-16.0) 06/25/19 18:03 Hct 47.1 % (34.0-46.0) H 06/25/19 18:03 MCV 91.2 fL (80.0-100.0) 06/25/19 18:03 MCH 30.2 pg (25.0-35.0) 06/25/19 18:03 MCHC 33.1 g/dL (31.0-37.0) 06/25/19 18:03 RDW 15.6 % (11.5-15.5) H 06/25/19 18:03 Plt Count 238 k/uL (150-450) 06/25/19 18:03 Neutrophils % 64 % 06/25/19 18:03 Lymphocytes % 27 % 06/25/19 18:03 Monocytes % 5 % 06/25/19 18:03 Eosinophils % 2 % 06/25/19 18:03 Basophils % 2 % 06/25/19 18:03 Neutrophils # 4.7 k/uL (1.3-7.7) 06/25/19 18:03 Lymphocytes # 2.0 k/uL (1.0-4.8) 06/25/19 18:03 Monocytes # 0.3 k/uL (0-1.0) 06/25/19 18:03 Eosinophils # 0.2 k/uL (0-0.7) 06/25/19 18:03 Basophils # 0.1 k/uL (0-0.2) 06/25/19 18:03 Sodium 143 mmol/L (137-145) 06/26/19 07:54 Potassium 3.9 mmol/L (3.5-5.1) 06/26/19 07:54 Chloride 105 mmol/L (98-107) 06/26/19 07:54 Carbon Dioxide 33 mmol/L (22-30) H 06/26/19 07:54 Anion Gap 5 mmol/L 06/26/19 07:54 BUN 12 mg/dL (7-17) 06/26/19 07:54 Creatinine 0.78 mg/dL (0.52-1.04) 06/26/19 07:54 Est GFR (CKD-EPI)AfAm >90 (>60 ml/min/1.73 sqM) 06/26/19 07:54 Est GFR (CKD-EPI)NonAf 82 (>60 ml/min/1.73 sqM) 06/26/19 07:54 Glucose 93 mg/dL (74-99) 06/26/19 07:[address] Glu mg/dL 111 06/26/19 07:54 Hemoglobin A1c 5.5 % (4.0-6.0) 06/26/19 07:54 Calcium 9.9 mg/dL (8.4-10.2) 06/26/19 07:54 Total Bilirubin 0.8 mg/dL (0.2-1.3) 06/26/19 07:54 AST 24 U/L (14-36) 06/26/19 07:54 ALT 27 U/L (9-52) 06/26/19 07:54 Alkaline Phosphatase 64 U/L (38-126) 06/26/19 07:54 Total Protein 6.8 g/dL (6.3-8.2) 06/26/19 07:54 Albumin 4.0 g/dL (3.5-5.0) 06/26/19 07:54 Triglycerides 70 mg/dL (<150) 06/26/19 07:54 Cholesterol 158 mg/dL (<200) 06/26/19 07:54 LDL Cholesterol, Calc 90 mg/dL (0-99) 06/26/19 07:54 HDL Cholesterol 54 mg/dL (40-60) 06/26/19 07:54 TSH 4.860 mIU/L (0.465-4.680) H 06/26/19 07:54 Free T4 1.30 ng/dL (0.78-2.19) 06/26/19 08:30 Urine Color Light Yellow 06/25/19 17:35 Urine Appearance Clear (Clear) 06/25/19 17:35 Urine pH 7.0 (5.0-8.0) 06/25/19 17:35 Ur Specific [place] 1.004 (1.001-1.035) 06/25/19 17:35 Urine Protein Negative (Negative) 06/25/19 17:35 Urine Glucose (UA) Negative (Negative) 06/25/19 17:35 Urine Ketones Negative (Negative) 06/25/19 17:35 Urine Blood Negative (Negative) 06/25/19 17:35 Urine Nitrite Negative (Negative) 06/25/19 17:35 Urine Bilirubin Negative (Negative) 06/25/19 17:35 Urine Urobilinogen <2.0 mg/dL (<2.0) 06/25/19 17:35 Ur Leukocyte Esterase Negative (Negative) 06/25/19 17:35 Salicylates <1.0 mg/dL 06/25/19 18:03 Urine Opiates Screen Not Detected (NotDetected) 06/25/19 17:35 Ur Oxycodone Screen Not Detected (NotDetected) 06/25/19 17:35 Urine Methadone Screen Not Detected (NotDetected) 06/25/19 17:35 Ur Propoxyphene Screen Not Detected (NotDetected) 06/25/19 17:35 Acetaminophen <10.0 ug/mL 06/25/19 18:03 Ur Barbiturates Screen Not Detected (NotDetected) 06/25/19 17:35 U Tricyclic Antidepress Not Detected (NotDetected) 06/25/19 17:35 Ur Phencyclidine Scrn Not Detected (NotDetected) 06/25/19 17:35 Ur Amphetamines Screen Not Detected (NotDetected) 06/25/19 17:35 U Methamphetamines Scrn Not Detected (NotDetected) 06/25/19 17:35 U Benzodiazepines Scrn Not Detected (NotDetected) 06/25/19 17:35 Urine Cocaine Screen Not Detected (NotDetected) 06/25/19 17:35 U Marijuana (THC) Screen Not Detected (NotDetected) 06/25/19 17:35 Serum Alcohol <10 mg/dL 06/25/19 18:03 Vital Signs Temp 98.6 F 07/02/19 06:51 Pulse 76 07/02/19 08:36 Resp 16 07/02/19 06:51 BP 116/65 07/02/19 08:36 Pulse Ox 99 06/25/19 18:55 Patient Condition at Discharge: Stable Plan - Discharge Summary New Discharge Prescriptions: New traZODone HCL [Desyrel] 100 mg PO HS #14 tab Nicotine 14Mg/24Hr Patch [Habitrol] 1 patch TRANSDERM DAILY #7 patch lamoTRIgine [LaMICtal] 100 mg PO DAILY #14 tab Escitalopram [Lexapro] 5 mg PO DAILY #14 tab HYDROcodone/APAP 10-325MG [[place] 10-325] 1 each PO Q8H PRN tab PRN Reason: Pain hydrOXYzine PAMOATE [Vistaril] 25 mg PO Q8HR PRN #28 cap PRN Reason: Anxiety Continue Levothyroxine Sodium [Levoxyl] 50 mcg PO DAILY Cholecalciferol [Vitamin D3 (25 Mcg = 1000 Iu)] 1,000 unit PO DAILY Calcium Carbonate [Calcium] 600 mg PO DAILY amLODIPine [Norvasc] 10 mg PO DAILY 30 Days #30 tab Albuterol Inhaler [Ventolin Hfa Inhaler] 2 puff INHALATION RT-QID PRN 30 Days #2 puff PRN Reason: Wheezing Multivitamins, Thera [Multivitamin (formulary)] 1 tab PO DAILY Discontinued HYDROcodone/APAP 10-325MG [[place] 10-325] 1 tab PO Q6H PRN PRN Reason: Pain Cariprazine HCl [Vraylar] 3 mg PO BID Discharge Medication List Levothyroxine Sodium [Levoxyl] 50 mcg PO DAILY 04/04/14 [History] Calcium Carbonate [Calcium] 600 mg PO DAILY 01/12/17 [History] Cholecalciferol [Vitamin D3 (25 Mcg = 1000 Iu)] 1,000 unit PO DAILY 01/12/17 [History] Albuterol Inhaler [Ventolin Hfa Inhaler] 2 puff INHALATION RT-QID PRN 30 Days #2 puff 01/27/18 [Rx] amLODIPine [Norvasc] 10 mg PO DAILY 30 Days #30 tab 01/27/18 [Rx] Multivitamins, Thera [Multivitamin (formulary)] 1 tab PO DAILY 06/25/19 [History] Escitalopram [Lexapro] 5 mg PO DAILY #14 tab 07/02/19 [Rx] HYDROcodone/APAP 10-325MG [[place] 10-325] 1 each PO Q8H PRN tab 07/02/19 [Rx] Nicotine 14Mg/24Hr Patch [Habitrol] 1 patch TRANSDERM DAILY #7 patch 07/02/19 [Rx] hydrOXYzine PAMOATE [Vistaril] 25 mg PO Q8HR PRN #28 cap 07/02/19 [Rx] lamoTRIgine [LaMICtal] 100 mg PO DAILY #14 tab 07/02/19 [Rx] traZODone HCL [Desyrel] 100 mg PO HS #14 tab 07/02/19 [Rx] Follow up Appointment(s)/Referral(s): Thom Pineda [Other] - 07/04/19 1:30 pm (Yevgeniy Rubio Please call prior to appointment to confirm you will be going. Once initial appointment is complete they will schedule you with the doctor.) Mitul Rodriguez MD [Primary Care Provider] - As Needed Patient Instructions/Handouts: How to Stop Smoking (DC), Bipolar Disorder (DC), Depression (DC), Suicide Prevention (DC) Activity/Diet/Wound Care/Special Instructions: Activity and diet as tolerated. No guns or weapons in the home. Refrain from alcohol and street drugs not prescribed by your physicians. Take all your medications as prescribed, and attend all your follow up appointments as scheduled. If in need of medication refills, please go to your primary care physicians, or your out patient psychiatrist. If in crisis, please call or go to your nearest ER for an evaluation. Discharge Disposition: HOME SELF-CARE
== END 2019-07-02 13:27 | disposition home or self-care (01) | DRG 885 ==
LOC: EC 15:57 → 3MHU 18:30
PROVIDERS: ADMIT Psychiatry & Neurology Psychiatry; ATTEND Psychiatry & Neurology Psychiatry
DX: F31.4 Bipolar disorder, current episode depressed, severe, without psychotic features (principal); F17.210 Nicotine dependence, cigarettes, uncomplicated; F41.0 Panic disorder [episodic paroxysmal anxiety]; G47.00 Insomnia, unspecified; I10 Essential (primary) hypertension; M54.9 Dorsalgia, unspecified; G89.29 Other chronic pain; J44.9 Chronic obstructive pulmonary disease, unspecified; Z79.899 Other long term (current) drug therapy; Z80.0 Family history of malignant neoplasm of digestive organs; Z91.14 Patient's other noncompliance with medication regimen; Z91.5 Personal history of self-harm; Z88.7 Allergy status to serum and vaccine; Z88.8 Allergy status to other drugs, medicaments and biological substances; Z91.040 Latex allergy status
CPT/HCPCS: 36415; 80048; 80053; 80061; 80306; 80320; 80329; 81003; 83036; 83520; 84439; 84443; 85025; 99285

== ENCOUNTER → 2019-09-04 | Outpatient (CLI) | payer MEDICARE ==
--- NOTE | 2019-09-07 10:19 | MM ---
Reason for exam: screening (asymptomatic). Last mammogram was performed 2 years and 2 months ago. History: Patient is postmenopausal. Took hormonal contraceptives for 5 years. Took estrogen for 1 month. Physical Findings: A clinical breast exam by your physician is recommended on an annual basis and results should be correlated with mammographic findings. MG Screening Mammo w CAD Bilateral CC and MLO view(s) were taken. Prior study comparison: June 29, 2017, bilateral MG screening mammo w CAD. February 19, 2015, bilateral MG screening mammo w CAD. The breast tissue is heterogeneously dense. This may lower the sensitivity of mammography. Finding: There is a 5 mm high density, oval mass located 2 cm from the nipple in the outer quadrant, anterior position of the right breast CC view. New finding since June 29, 2017. ASSESSMENT: Incomplete: need additional imaging evaluation, BI-RAD 0 RECOMMENDATION: Special view mammogram of the right breast. If lesion persists on supplemental views, image directed ultrasound is recommended. [facility] will attempt to contact patient to return for supplemental views and ultrasound if indicated.
== END | disposition home or self-care (01) ==
LOC: RADMAMWWP 13:41
PROVIDERS: ATTEND Family Medicine
DX: Z12.31 Encounter for screening mammogram for malignant neoplasm of breast (principal)
CPT/HCPCS: 77067

== ENCOUNTER → 2019-09-18 | Outpatient (CLI) | payer MEDICARE ==
--- NOTE | 2019-09-19 07:23 | MM ---
Reason for exam: additional evaluation requested from abnormal screening. Last mammogram was performed less than 1 month ago. History: Patient is postmenopausal. Took hormonal contraceptives for 5 years. Took estrogen for 1 month. Physical Findings: Nurse did not find any significant physical abnormalities on exam. MG Work Up Mamm w CAD RT Spot compression CC and ML view(s) were taken of the right breast. Prior study comparison: September 04, 2019, bilateral MG screening mammo w CAD. June 29, 2017, bilateral MG screening mammo w CAD. The breast tissue is heterogeneously dense. This may lower the sensitivity of mammography. These results were verbally communicated with the patient and result sheet given to the patient on 09/18/19. ASSESSMENT: Incomplete: need additional imaging evaluation, BI-RAD 0 RECOMMENDATION: Ultrasound of the right breast. [facility] will attempt to contact patient to return for ultrasound.
--- NOTE | 2019-09-19 07:24 | USB ---
Reason for exam: additional evaluation requested from abnormal screening. History: Patient is postmenopausal. Took hormonal contraceptives for 5 years. Took estrogen for 1 month. US Breast Workup Limited RT Right limited breast ultrasound including focal area of concern, retroareolar and axilla demonstrates duct ectasia at the posterior nipple. These results were verbally communicated with the patient and result sheet given to the patient on 09/18/19. ASSESSMENT: Probably benign, BI-RAD 3 RECOMMENDATION: Follow-up diagnostic mammogram of the right breast in 6 months.
== END | disposition home or self-care (01) ==
LOC: RADMAMWWP 13:31
PROVIDERS: ATTEND Family Medicine
DX: R92.8 Other abnormal and inconclusive findings on diagnostic imaging of breast (principal)
CPT/HCPCS: 77065

== ENCOUNTER → 2020-06-03 | Outpatient (CLI) | payer MEDICARE | END | disposition home or self-care (01) | LOC: LABPAT 13:30 | PROVIDERS: ATTEND Orthopaedic Surgery | DX: Z01.818 Encounter for other preprocedural examination (principal); Z01.812 Encounter for preprocedural laboratory examination; M16.11 Unilateral primary osteoarthritis, right hip | CPT/HCPCS: 86850; 86900; 86901 ==

== ENCOUNTER 2020-06-10 06:43 | Observation (INO) | payer MEDICARE ==
--- NOTE | 2020-05-31 12:53 | HP ---
HISTORY AND PHYSICAL CHIEF COMPLAINT: Right hip pain. HISTORY OF PRESENT ILLNESS: The patient is a 64-year-old female who presents with progressive right hip pain for the past 5 years. It has worsened recently. She notes anterior thigh and groin pain with weightbearing activities. She also notes night symptoms. She has been taking [place] for this. She had a previous hip arthroscopy in 2010. PAST MEDICAL HISTORY: Significant for COPD, depression, hypertension, reflux disease, arthritis and hypothyroidism. PAST SURGICAL HISTORY: Significant for previous left shoulder surgery, right hip arthroscopy and previous soft tissue tumor removal. CURRENT MEDICATIONS: Include levothyroxine. FAMILY HISTORY: Significant for cancer. SOCIAL HISTORY: Significant for current tobacco use in addition to social alcohol use. REVIEW OF SYSTEMS: Sixteen point review of systems otherwise reviewed and is noncontributory. She denies drug allergy. On examination, she is approximately 5 feet tall, 210 pounds of mesomorphic habitus. HEENT exam is nonfocal. NECK: Supple. Passive motion right hip, flexion 70 degrees, external rotation of the hip flexed 20 degrees, internal rotation 10 degrees with pain. Clinically, she has 1 cm shortening right lower extremity compared to the left. Her distal neurovascular appears intact in the right lower extremity. X-rays of the right hip obtained in the office show severe degenerative changes with [id number] osteoarthrosis. IMPRESSION: 1. Right hip severe osteoarthrosis. 2. Chronic obstructive pulmonary disease. RECOMMENDATIONS: I talked to the patient at length regarding her condition along with treatment options. At this point, she is quite symptomatic despite previous conservative measures. After thorough discussion, she opts to proceed with surgery. We will plan to proceed with right total hip arthroplasty utilizing a lateral approach. Risks and benefits were discussed at length in layman's terms. We will institute DVT prophylaxis postoperatively. The patient underwent preoperative medical evaluation by Dr. Mitul Rodriguez. MMODL / IJN: [id number] /
[2020-06-03 11:44] VITALS: BMI 19.2
[~2020-06-10 06:43] MED LIST: MIDAZOLAM 2 MG/2 ML VIAL IV PRN; SCOPOLAMINE 1.5MG/72HR PATCH TRANSDERM ONE; TRANEXAMIC ACID 1,000 MG in SODIUM CHLORIDE 0.9% 100 ML IVPB ONE
[2020-06-10] MEDS: LACTATED RINGERS 1,000 ML IV SCH (07:34)
[2020-06-10] MEDS ORDERED: LIDOCAINE 1% (10MG/ML) FOR IV START INTRADERMA ONE (07:34)
[2020-06-10] MEDS ORDERED: ACETAMINOPHEN TAB 500 MG TAB ONE (07:42)
[2020-06-10] MEDS ORDERED: ONDANSETRON 4 MG/2 ML VIAL ONE (07:42)
[2020-06-10] MEDS: ACETAMINOPHEN TAB 500 MG TAB PO ONE ×2 (07:47→13:44)
[2020-06-10] MEDS: MELOXICAM 7.5 MG TAB PO ONE ×2 (07:47→13:44)
[2020-06-10] MEDS: DEXAMETHASONE SOD PHOSPHATE 10 MG/ML 1 ML VIAL IV ONE ×2 (07:48→13:45)
[2020-06-10] MEDS: ONDANSETRON 4 MG/2 ML VIAL IVP ONE ×2 (07:48→13:45)
[2020-06-10] MEDS ORDERED: fentaNYL (PF) 50 MCG/ML 2 ML AMP ONE (07:57)
[2020-06-10] MEDS ORDERED: MIDAZOLAM 2 MG/2 ML VIAL ONE (07:57)
[2020-06-10] MEDS ORDERED: SODIUM CHLORIDE 0.9% 100 ML BAG ONE (07:57)
[2020-06-10] MEDS ORDERED: PROPOFOL 10 MG/ML 20 ML VIAL IV ONE (07:57)
[2020-06-10] MEDS ORDERED: TRANEXAMIC ACID 1,000 MG/10 ML VIAL ONE (07:57)
[2020-06-10] MEDS ORDERED: ceFAZolin 3,000 MG in SODIUM CHLORIDE 0.9% IRRIGATIO 3,000 ML IRRIGATION ONE (08:31)
[2020-06-10] MEDS ORDERED: LACTATED RINGERS 1,000 ML IV ONE (09:30)
[2020-06-10] MEDS ORDERED: ACETAMINOPHEN TAB 325 MG TAB PO PRN (09:32)
[2020-06-10] MEDS ORDERED: ONDANSETRON 4 MG/2 ML VIAL IVP PRN (09:32)
[2020-06-10] MEDS ORDERED: traMADol 50 MG TAB PO PRN (09:32)
[2020-06-10] MEDS ORDERED: MAGNESIUM HYDROXIDE 2,400 MG/10 ML CUP PO PRN (09:32)
[2020-06-10] MEDS ORDERED: NALOXONE 0.4 MG/ML 1 ML VIAL IV PRN (09:32)
--- NOTE | 2020-06-10 09:57 | P.OP ---
Date of Procedure: 06/10/20 Preoperative Diagnosis: Right hip severe osteoarthrosis Postoperative Diagnosis: Same Procedure(s) Performed: Right total hip arthroplastylateral approachpress-fit Implants: Depuy Corail size 10/125 press-fit collared femoral stem, 36+1.5 cobalt chrome femoral head, 56 mm Bennet acetabular shell with neutral polyethylene liner. Anesthesia: spinal Surgeon: Xavi Cordova Assistant Broker #1: Vishnu Ramos Estimated Blood Loss (ml): 100 Pathology: other (Femoral head) Condition: stable Disposition: PACU Indications for Procedure: The patient's a 64-year-old female who presents with progressive right hip pain secondary to osteoarthrosis despite conservative measures. A discussion of the risks and benefits of operative intervention versus continued conservative measures was made with patient. She opted to proceed with surgery. Operative risks to include infection, neurovascular injury, development of blood clots, possible fracture, possible leg length discrepancy, possible instability and need for subsequent procedures was discussed. Informed consent was obtained. Operative Findings: As below Description of Procedure: The patient was brought to the operating room, and after induction of spinal anesthesia was placed in a lateral decubitus position. The bony prominences were appropriately padded. The pelvis was stable perpendicular to the floor with a pegboard. The right lower extremity was prepped and draped in normal fashion. A 12 cm incision was then made centered over the greater trochanter extending superiorly to level the ASIS and distally in line with the femoral shaft. The skin and subcutaneous tissues were divided sharply. Electrocautery was used for hemostasis. The fascia corrina and gluteus keyshawn fascia was split in line with the skin incision. The muscle fibers were bluntly dissected proximally. A self-retaining retractor was placed. The anterior and posterior margins of the gluteus medius muscles identified and the anterior two thirds was detached from the greater trochanter with electrocautery. The gluteus minimus tendon was identified and detached in a similar fashion. A wide capsulotomy was performed. The femoral neck fracture was identified in the lower neck cut was made approximately 1 1/2 cm above the level of the lesser trochanter with a sagittal saw at a 45 the shaft. The head was then extracted with a corkscrew. Attention was then paid towards preparing the acetabular. Anterior and posterior retractors were placed. The remaining capsular labral tissues debrided sharply clearly defining the acetabular margins. Began reaming with a 47 mm reamer taking care to initially medialize, then reaming at 45 of abduction and 20 of anteversion. Sequential reaming is performed up to 55 mm. This was down to bleeding bony surface. A trial 56 mm acetabular shell was inserted at 45 of abduction and 20 of anteversion. This was fully seated. There was good rim fit and stability. A neutral polyethylene liner was then impacted. Care taken to avoid any soft tissue interposition. Attention was then paid towards preparing the proximal femur. A box chisel was used to open the metaphyseal region. A canal finder was used to find the femoral canal. Sequential broaching was performed up to a size 10. This is placed in 15 of anteversion with the leg perpendicular floor judging off the trans-epicondylar axis. There is good rotational stability. A calcar mill was used to fashion the medial calcar. A trial 125 neck along with a 36 mm + 1.5 trial head was placed. The hip was gently reduced. It was taken through range of motion. I felt to be stable in flexion and extension with internal and external rotation. I felt there was adequate latter-day of soft tissue tension. The hip was gently dislocated. The trial components removed. Pulsatile lavage was utilized. The final size 10 125 degree collared femoral stem was inserted again with the leg perpendicular to the floor in 15 of anteversion. Again there was good rotational stability. A 36 mm + 1.5 cobalt chrome femoral head was gently impacted. The hip was gently reduced. Again it was taken through motion and felt to be stable in flexion and extension with internal and external rotation. Pulsatile lavage was again utilized. With the leg in abduction the gluteus minimus and medius tendons reattached to the greater trochanter with #2 Ethibond suture. There was minimal drainage therefore a deep drain was not placed. The fascia corrina and gluteus keyshawn fascia was closed with #2 Ethibond suture. The subcutaneous tissues were reapproximated interrupted 2-0 Vicryl sutures. The skin was reapproximated with 3-0 subcuticular strata fix suture. Skin tape and adhesive was applied. A sterile dressing was applied. The patient was awoken from sedation and transferred to recovery room in good condition. Blood loss was estimated 100 mL. No complications were incurred. Sponge and needle counts were correct in the case. Dangelo HAMMODN assisted during the major composes case to include exposure, implantation, and closure.
[2020-06-10] MEDS: HYDROmorphone 0.5 MG/0.5 ML SYRINGE IVP PRN ×4 (10:10→12:31)
[2020-06-10] MEDS ORDERED: KETOROLAC 30 MG/ML 1 ML VIAL IVP ONE (10:16)
--- NOTE | 2020-06-10 12:34 | XR ---
EXAMINATION TYPE: XR Hip Limited RT DATE OF EXAM: 06/10/2020 CLINICAL HISTORY: Status post right hip surgery, assess surgical alignment TECHNIQUE: AP portable view of the right hip obtained. COMPARISON: None. FINDINGS: Metallic hardware from right hip hip arthroplasty is seen and appears satisfactory in align ment and position. There is evidence of recent surgery with subcutaneous gas noted. IMPRESSION: Metallic hardware from right hip arthroplasty is satisfactory in position.
[2020-06-10] MEDS: HYDROcodone/APAP 10-325MG 1 EACH TAB PO PRN (18:00)
--- NOTE | 2020-06-10 21:31 | P.CONS ---
History of Present Illness - Reason for Consult Consult date: 06/10/20 Medical management Requesting physician: Xavi Cordova - Chief Complaint Right hip pain - History of Present Illness Consultation: This is a pleasant 64-year-old patient of Dr. grijalva from [facility]. Chronic stable medical conditions include COPD, hypertension, obstructive signs, hypothyroid and chronic low back pain. Bipolar disorder. Patient is a current smoker. Patient underwent right total hip arthroplasty. Pain in the operative knee. No nausea vomiting. No chest pain. Review of systems: GEN.: Tired EYES: None HEENT: None NECK: None RESPIRATORY: Occasional wheezing CARDIOVASCULAR: None GASTROINTESTINAL: None GENITOURINARY: None MUSCULOSKELETAL: Joint pains LYMPHATICS: None HEMATOLOGICAL: None PSYCHIATRY: None NEUROLOGICAL: None Past medical history to include: COPD, hypertension, osteophytes, hypothyroid, chronic back pain, bipolar panic disorder Social history: Smokes a pack a day for close to 50 years. No alcohol. . Physical examination: VITAL SIGNS: 97.5, 50, 18, 104/59, 81% on 2 L GENERAL: BMI 19.8, laying in bed, slightly anxious. EYES: Pupils equal. Conjunctiva normal. HEENT: External appearance of nose and ears normal, oral cavity grossly normal. NECK: JVD not raised; masses not palpable. HEART: First and second heart sounds are normal; no edema. LUNGS: Respiratory rate increased, decreased breath sounds. ABDOMEN: Soft, nontender, liver spleen not palpable, no masses palpable. PSYCH: Alert and oriented x3; mood and affect normal. MUSCULAR scheduled: Evidence of OA, dressing over the right hip incision NEUROLOGICAL: Cranial nerves grossly intact; no facial asymmetry, power and sensation grossly intact. LYMPHATICS: No lymph nodes palpable in the axilla and neck Assessment: Right total hip arthroplasty -COPD in a current smoker -Chronic nicotine dependence patient cigarette smoker -Essential hypertension -Hypothyroid -Bipolar disorder Plan: Home medications to resume. Patient Lovenox for DVT prophylaxis. Decrease IV first of 50 mL an hour. Patient oral intake is fair. Care was discussed with the patient question also. Also had a nicotine patch. Thank you Dr. Cordova Past Medical History Past Medical History: COPD, Hypertension, Osteoarthritis (OA), Thyroid Disorder Additional Past Medical History / Comment(s): CHRONIC BACK PAIN, hx vertigo yrs ago, History of Any Multi-Drug Resistant Organisms: None Reported Past Surgical History: Section, Orthopedic Surgery Additional Past Surgical History / Comment(s): surgery for ectopic pregnany, left shoulder surgery, rt hip surgery. Past Anesthesia/Blood Transfusion Reactions: No Reported Reaction Past Psychological History: Anxiety, Bipolar, Depression, Panic Disorder Smoking Status: Current every day smoker Past Alcohol Use History: None Reported Additional Past Alcohol Use History / Comment(s): SMOKES 1 PPD, SMOKING FOR APPROX 50 YEARS. Past Drug Use History: None Reported Additional Drug Use History / Comment(s): . - Past Family History Mother Family Medical History: Cancer Additional Family Medical History / Comment(s): PANCREATIC CANCER Medications and Allergies Home Medications Medication Instructions Recorded Confirmed Type Levothyroxine Sodium [Levoxyl] 50 mcg PO DAILY 04/04/14 06/10/20 History amLODIPine [Norvasc] 10 mg PO DAILY 30 Days #30 tab 01/27/18 06/10/20 Rx Multivitamins, Thera [Multivitamin 1 tab PO DAILY 06/25/19 06/10/20 History (formulary)] Escitalopram [Lexapro] 5 mg PO DAILY #14 tab 07/02/19 06/10/20 Rx lamoTRIgine [LaMICtal] 100 mg PO DAILY #14 tab 07/02/19 06/10/20 Rx traZODone HCL [Desyrel] 100 mg PO HS #14 tab 07/02/19 06/10/20 Rx Budesonide-Formot 160-4.5 Mcg 2 puff INHALATION DIRECTED PRN 06/03/20 0 History [Symbicort 160-4.5 Mcg Inhaler] Calcium Carb-Vit D 500Mg-200Un 1 each PO DAILY 06/03/20 06/10/20 History [Oscal 500+D] HYDROcodone/APAP 10-325MG [[place] 1 each PO QID PRN 06/03/20 06/10/20 History 10-325] Allergies Allergy/AdvReac Type Severity Reaction Status Date / Time influenza virus vaccine qs Allergy Unknown Unknown Verified 06/10/20 07:21 [id number] (36 mos, up) [From Fluarix Quad] latex Allergy Unknown Rash/Hives Verified 06/10/20 07:21 duloxetine HCl AdvReac Unknown INCREASED Verified 06/10/20 07:21 [From Cymbalta] DEPRESSION Physical Exam Vitals: Vital Signs Temp Pulse Pulse Pulse Resp BP BP 06/10/20 19:34 98.1 F 55 L 16 06/10/20 16:00 18 06/10/20 14:46 97.5 F L 50 L 18 06/10/20 13:02 57 L 16 06/10/20 12:05 56 L 16 06/10/20 11:35 58 L 16 06/10/20 11:05 57 L 16 06/10/20 10:35 60 16 140/70 06/10/20 10:20 55 L 16 177/74 06/10/20 10:05 54 L 16 167/72 06/10/20 09:50 97.6 F 65 16 163/77 06/10/20 07:19 97.6 F 60 18 126/59 BP Pulse Ox 06/10/20 19:34 104/59 91 L 06/10/20 16:00 06/10/20 14:46 97/59 95 06/10/20 13:02 110/60 97 06/10/20 12:05 125/59 97 06/10/20 11:35 148/71 100 06/10/20 11:05 143/64 99 06/10/20 10:35 97 06/10/20 10:20 100 06/10/20 10:05 98 06/10/20 09:50 97 06/10/20 07:19 96 Intake and Output 06/10/20 06/10/20 06/10/20 06:59 14:59 22:59 Intake Total 1651 260 Output Total 100 Balance 1551 260 Intake: IV 1651 Oral 260 Output: Estimated Blood Loss 100 Other: Voiding Method Bedpan Weight 49 kg
[2020-06-10] MEDS: SENNOSIDES-DOCUSATE SODIUM 1 EACH TAB PO SCH (21:57)
[2020-06-11] MEDS: HYDROcodone/APAP 10-325MG 1 EACH TAB PO PRN ×3 (00:43→15:15)
[2020-06-11] MEDS: LACTATED RINGERS 1,000 ML IV SCH (07:14)
[2020-06-11] MEDS: ENOXAPARIN 40 MG/0.4 ML SYRINGE SQ SCH (08:26)
[2020-06-11] MEDS: FAMOTIDINE 20 MG TAB PO SCH (08:26)
[2020-06-11 09:08] LABS: Basophils % (A) 0 %; Eosinophils # (A) 0.1 k/uL (0-0.7); Eosinophils % (A) 1 %; HCT 38.2 % (34.0-46.0); HGB 11.9 gm/dL (11.4-16.0); Hypochromasia Slight; Lymphocytes # (A) 1.5 k/uL (1.0-4.8); Lymphocytes % (A) 15 %; MCH 30.5 pg (25.0-35.0); MCHC 31.2 g/dL (31.0-37.0); Mean Platelet Volume 7.9; Monocytes # (A) 0.6 k/uL (0-1.0); Monocytes % (A) 6 %; Neutrophils # (A) 7.8 k/uL (1.3-7.7); Neutrophils % (A) 77 %; Platelet Count 161 k/uL (150-450); RDW 13.4 % (11.5-15.5); WBC 10.1 k/uL (3.8-10.6)
--- NOTE | 2020-06-11 10:46 | P.PN ---
Subjective Progress Note Date: 06/11/20 Principal diagnosis: Status post right total hip arthroplasty Patient is evaluated at bedside today, she resting comfortably. She was waiting for physical therapy. She denies any chest pain or shortness breath. Her pain is controlled currently. Objective - Vital Signs Vital signs: Vital Signs Temp 98.1 F 06/11/20 07:00 Pulse 64 06/11/20 09:15 Resp 18 06/11/20 09:15 BP 119/65 06/11/20 07:00 Pulse Ox 95 06/11/20 07:00 Intake & Output 06/10/20 06/11/20 06/11/20 18:59 06:59 18:59 Intake Total 1911 240 Output Total 100 Balance 1811 240 Weight 49 kg Intake: IV 1651 Oral 260 240 Output: Estimated Blood Loss 100 Other: Voiding Method Bedpan Bedpan Bedpan # Voids 2 - Exam Right lower extremity: Incision is clean, dry, and intact. The exofin fusion tape is in good condition. There is minimal soft tissue swelling and ecchymosis surrounding the medial and lateral aspects of the incision. Calf is soft, no tenderness with palpation. Plantar flexion, dorsiflexion, EHL, FHL are intact. Sensory exam to light touch throughout the extremity is intact, dorsal pedis pulses 2+. - Labs CBC & Chem 7: 06/11/20 08:09 Labs: Abnormal Lab Results - Last 24 Hours (Table) 06/11/20 Range/Units 08:09 Neutrophils # 7.8 H (1.3-7.7) k/uL Assessment and Plan Assessment: Status post right total hip arthroplasty Plan: Pain control, resume [place] 10 mg/325 mg GI and DVT prophylaxis, aspirin 81 mg twice a day Wound care instructions discussed Icing and elevating techniques discussed Home therapy and nursing after discharge Medical recommendations Plan for discharge home today Time with Patient: Less than 30
--- NOTE | 2020-06-11 10:49 | P.DS ---
Providers Date of admission: 06/10/2020 Expected date of discharge: 06/11/20 Attending physician: Xavi Cordova Consults: 06/10/20 09:32 Consult Physician Routine Consulting Provider: Mitul Rodriguez Reason/Comments: medical management Do you want consulting provider notified?: Yes Primary care physician: Mitul Rodriguez Hospital Course: Date of admission: 06/10/2020 Date of discharge: 06/11/2020 Admission diagnosis: Status post right total hip arthroplasty Discharge diagnosis: Same Attending physician: Dr. Cordova Surgical procedures: Right total hip arthroplasty Brief history: Patient is a 64-year-old female with a history of progressive primary right hip osteoarthritis. At this point patient has failed conservative treatment measures and has opted to proceed with a elective right total hip arthroplasty. Hospital course: Details of patient's surgery can be found in operative report. Patient tolerated the procedure well and was subsequently transported to orthopedic floor. Patient's orthopeidc and medical care was provided daily. Patient had daily laboratory tests performed for evaluation of overall blood counts. Patient had daily physical therapy to include strengthening range of motion as well as education with walker ambulation. Patient was treated with Lovenox for their postoperative DVT prophylaxis during their inpatient stay. Isaiah enriquez was noted to have a relatively uneventful postoperative course. Patient reported satisfactory pain control with oral pain medications by postoperative day 0. Patient showed satisfactory progress with physical therapy. Patient moved steadily through the program and had no difficulty meeting the goals by postoperative day 1. Given patient's otherwise satisfactory course and having met physical therapy goals, plan is to discharge patient home on postoperative day 1. Discharge condition/disposition: Patient will be discharged home in stable condition. Discharge medications: Instructions are given on resumption of patient's normal daily medications per primary care recommendation, in addition patient will be prescribed [place] 10 mg/325 mg, aspirin 81 mg, Pepcid 20 mg. Discharge instructions: 1. Wound care and infection precautions, keep incision dry and covered while showering, no lotions, creams, moisturizers. No soaking, tubs, pools, hottubs. Do not scrub over the incision. 2. Weight-bear as tolerated with walker / cane until follow-up. 3. Ice and elevate when necessary. Do not exceed 20 minutes per hour with ice pack. 4. Utilize compression sleeve until seen at first follow up appointment. 5. Visiting nursing care. 6. Home physical therapy. 7. Pain meds and anticoagulants per prescription. 8. Pain medication has potential to cause constipation. Increase oral fluid and fiber intake. Contact primary care provider if you have not had a bowel movement within 48 hours after discharge 9. No anti-inflammatory medication until discussed at first post operative v isit, this including Motrin, Aleve, Mobic, Diclofenac. 10. Follow up in office at 2 weeks postop with Dangelo Ramos PA-C 11. Follow up with your primary care doctor 7-10 days after discharge. 12. Contact [facility] with any questions, . Procedures: Right total hip arthroplasty Patient Condition at Discharge: Good Plan - Discharge Summary Discharge Rx Participant: Yes New Discharge Prescriptions: New Aspirin [Adult Low Dose Aspirin EC] 81 mg PO BID #60 tablet. Famotidine [Pepcid] 20 mg PO DAILY #30 tablet Hydrocodone/Acetaminophen [[place] 10-325] 1 each PO Q6H PRN #28 tab PRN Reason: Pain No Action Levothyroxine Sodium [Levoxyl] 50 mcg PO DAILY amLODIPine [Norvasc] 10 mg PO DAILY 30 Days #30 tab Multivitamins, Thera [Multivitamin (formulary)] 1 tab PO DAILY traZODone HCL [Desyrel] 100 mg PO HS #14 tab lamoTRIgine [LaMICtal] 100 mg PO DAILY #14 tab Escitalopram [Lexapro] 5 mg PO DAILY #14 tab Budesonide-Formot 160-4.5 Mcg [Symbicort 160-4.5 Mcg Inhaler] 2 puff INHALATION DIRECTED PRN PRN Reason: sob Calcium Carb-Vit D 500Mg-200Un [[place] 500+D] 1 each PO DAILY HYDROcodone/APAP 10-325MG [[place] 10-325] 1 each PO QID PRN PRN Reason: Pain Discharge Medication List Levothyroxine Sodium [Levoxyl] 50 mcg PO DAILY 04/04/14 [History] amLODIPine [Norvasc] 10 mg PO DAILY 30 Days #30 tab 01/27/18 [Rx] Multivitamins, Thera [Multivitamin (formulary)] 1 tab PO DAILY 06/25/19 [History] Escitalopram [Lexapro] 5 mg PO DAILY #14 tab 07/02/19 [Rx] lamoTRIgine [LaMICtal] 100 mg PO DAILY #14 tab 07/02/19 [Rx] traZODone HCL [Desyrel] 100 mg PO HS #14 tab 07/02/19 [Rx] Budesonide-Formot 160-4.5 Mcg [Symbicort 160-4.5 Mcg Inhaler] 2 puff INHALATION DIRECTED PRN 06/03/20 [History] Calcium Carb-Vit D 500Mg-200Un [[place] 500+D] 1 each PO DAILY 06/03/20 [History] HYDROcodone/APAP 10-325MG [[place] 10-325] 1 each PO QID PRN 06/03/20 [History] Aspirin [Adult Low Dose Aspirin EC] 81 mg PO BID #60 tablet. 06/11/20 [Rx] Famotidine [Pepcid] 20 mg PO DAILY #30 tablet 06/11/20 [Rx] Hydrocodone/Acetaminophen [[place] 10-325] 1 each PO Q6H PRN #28 tab 06/11/20 [Rx] Follow up Appointment(s)/Referral(s): Vishnu Ramos PAC [PHYSICIAN WRONG ADDRESS CLERK] - 06/25/20 2:30 pm Mitul Rodriguez MD [Primary Care Provider] - 1 Week Activity/Diet/Wound Care/Special Instructions: Orthopedic Discharge Instructions: 1. Wound care and infection precautions, keep incision dry and covered while showering, no lotions, creams, moisturizers. No soaking, pools, hot tubs. Do not scrub over incision. 2. Weight-bear as tolerated with walker / cane until follow-up. 3. Ice and elevate when necessary. Do not exceed 20 minutes per hour with ice pack. 4. Utilize compression sleeve until seen at first follow up appointment. 5. Pain meds and anticoagulants per prescription. 6. Pain medication has potential to cause constipation. Increase oral fluid and fiber intake. Contact primary care provider if you have not had a bowel movement within 48 hours after discharge. 7. No anti-inflammatory medication until discussed at first post operative visit, this including Motrin, Aleve, Mobic, Diclofenac. 8. Follow up in office at 2 weeks postop with Dangelo Ramos PA-C 9. Follow up with your primary care doctor 7-10 days after discharge. 10. Contact [facility] with any questions, . Discharge Disposition: HOME WITH HOME HEALTH SERVICES
[2020-06-11] MEDS: HYDROmorphone 0.5 MG/0.5 ML SYRINGE IVP PRN ×2 (11:08→18:00)
[2020-06-11] MEDS: lamoTRIgine 100 MG TAB PO SCH (12:49)
[2020-06-11] MEDS: LEVOTHYROXINE 50 MCG TAB PO SCH (12:49)
[2020-06-11] MEDS: MULTIVITAMINS, THERA 1 EACH TAB PO SCH (12:49)
[2020-06-11] MEDS: ESCITALOPRAM 5 MG TAB PO SCH (12:49)
[2020-06-11] MEDS: SENNOSIDES-DOCUSATE SODIUM 1 EACH TAB PO SCH (20:11)
[2020-06-11] MEDS: traZODone HCL 100 MG TAB PO SCH (20:47)
--- NOTE | 2020-06-11 23:37 | P.PN ---
Progress Note - Text Progress Note Date: 06/11/20 - Chief Complaint Right hip pain Consultation: This is a pleasant 64-year-old patient of Dr. grijalva from [place]. Chronic stable medical conditions include COPD, hypertension, obstructive signs, hypothyroid and chronic low back pain. Bipolar disorder. Patient is a current smoker. Patient underwent right total hip arthroplasty. Today-some pain in the right ear. Did tolerate her diet. No nausea vomiting. Minimal wheezing. Did work with therapy. Review of systems: Was done for constitutional, cardiovascular, GI, pulmonary. relevant finding as above Active Medications Acetaminophen (Tylenol Tab) 650 mg PO Q4HR PRN PRN Reason: Pain Scale 1 to 5 Hydrocodone Bitart/Acetaminophen ([place] 10) 1 each PO Q6H PRN PRN Reason: Pain Scale 1 to 5 Last Admin: 06/11/20 15:15 Dose: 1 each Documented by: Hydrocodone Bitart/Acetaminophen ([place] 7.5-325) 2 each PO Q6H PRN PRN Reason: Pain Scale 6 to 10 Enoxaparin Sodium (Lovenox) 40 mg SQ DAILY [facility] Last Admin: 06/11/20 08:26 Dose: 40 mg Documented by: Escitalopram Oxalate (Lexapro) 5 mg PO DAILY [facility] Last Admin: 06/11/20 12:49 Dose: 5 mg Documented by: Famotidine (Pepcid) 20 mg PO DAILY [facility] Last Admin: 06/11/20 08:26 Dose: 20 mg Documented by: Hydromorphone HCl (Dilaudid) 0.5 mg IVP Q3HR PRN PRN Reason: Pain Scale 4 to 6 Last Admin: 06/11/20 18:00 Dose: 0.5 mg Documented by: Lactated Ringer's (Lactated Ringers) 1,000 mls @ 50 mls/hr IV .Q20H [facility] Last Admin: 06/11/20 07:14 Dose: 50 mls/hr Documented by: Lamotrigine (Lamictal) 100 mg PO DAILY [facility] Last Admin: 06/11/20 12:49 Dose: 100 mg Documented by: Levothyroxine Sodium (Synthroid) 50 mcg PO DAILY@0630 [facility] Last Admin: 06/11/20 12:49 Dose: 50 mcg Documented by: Magnesium Hydroxide (Milk Of Magnesia) 2,400 mg PO DAILY PRN PRN Reason: Constipation Multivitamins (Theragran) 1 each PO DAILY [facility] Last Admin: 06/11/20 12:49 Dose: 1 each Documented by: Naloxone HCl (Narcan) 0.2 mg IV Q2M PRN PRN Reason: Opioid Reversal Ondansetron HCl (Zofran) 4 mg IVP DAILY PRN PRN Reason: Nausea And Vomiting Senna/Docusate Sodium (Senokot-S) 2 each PO HS [facility] Last Admin: 06/11/20 20:11 Dose: Not Given Documented by: Tramadol HCl (Ultram) 50 mg PO Q6H PRN PRN Reason: Mild to Moderate Pain Trazodone HCl (Desyrel) 100 mg PO HS [facility] Last Admin: 06/11/20 20:47 Dose: 100 mg Documented by: Physical examination: VITAL SIGNS: 98.4, 63, 18, 123/65, 90% on room air GENERAL: Sitting up in a chair, awake EYES: Pupils equal. Conjunctiva normal. HEENT: External appearance of nose and ears normal, oral cavity grossly normal. NECK: JVD not raised; masses not palpable. HEART: First and second heart sounds are normal; no edema. LUNGS: Respiratory rate increased, decreased breath sounds. ABDOMEN: Soft, nontender, liver spleen not palpable, no masses palpable. PSYCH: Alert and oriented x3; mood and affect normal. MUSCULAR scheduled: Evidence of OA, dressing over the right hip incision Investigations: White count 10.1 hemoglobin 11.9 Assessment: Right total hip arthroplasty -COPD in a current smoker -Chronic nicotine dependence patient cigarette smoker -Essential hypertension -Hypothyroid -Bipolar disorder Plan: Continue current medication and treatment plan.. Patient again reminded about smoking. Thank you Dr. Dinh
[2020-06-12] MEDS: LEVOTHYROXINE 50 MCG TAB PO SCH (05:31)
[2020-06-12] MEDS: LACTATED RINGERS 1,000 ML IV SCH (05:32)
[2020-06-12] MEDS: ENOXAPARIN 40 MG/0.4 ML SYRINGE SQ SCH (08:06)
[2020-06-12] MEDS: MULTIVITAMINS, THERA 1 EACH TAB PO SCH (08:07)
[2020-06-12] MEDS: lamoTRIgine 100 MG TAB PO SCH (08:07)
[2020-06-12] MEDS: ESCITALOPRAM 5 MG TAB PO SCH (08:07)
[2020-06-12] MEDS: FAMOTIDINE 20 MG TAB PO SCH (08:07)
[2020-06-12] MEDS: HYDROcodone/APAP 10-325MG 1 EACH TAB PO PRN (08:13)
[2020-06-12] MEDS ORDERED: methylPREDNISolone SOD SUCCI 125 MG/2 ML VIAL IV STA (11:45)
[2020-06-12] MEDS: BUDESONIDE 1 MG/2 ML NEBU INHALATION SCH ×2 (12:54→19:48)
[2020-06-12] MEDS: IPRATROPIUM-ALBUTEROL 3 ML NEB INHALATION SCH ×3 (13:01→19:48)
--- NOTE | 2020-06-12 13:54 | P.PN ---
Subjective Progress Note Date: 06/12/20 Principal diagnosis: Status post right total hip arthroplasty Patient is evaluated at bedside today, she resting comfortably. Patient did stay 1 extra night due to difficulties with physical therapy. She did very well with physical therapy today, she is very interested in going home. She has no chest pain, shortness of breath, nausea or vomiting. Objective - Vital Signs Vital signs: Vital Signs Temp 100.2 F H 06/12/20 07:00 Pulse 69 06/12/20 13:08 Resp 18 06/12/20 08:00 BP 130/69 06/12/20 07:00 Pulse Ox 91 L 06/12/20 07:00 Intake & Output 06/11/20 06/12/20 06/12/20 18:59 06:59 18:59 Intake Total 240 100 Balance 240 100 Intake: Oral 240 100 Other: Voiding Method Bedpan Bedside Commode Bedside Commode # Voids 1 2 2 - Exam Right lower extremity: Incision is clean, dry, and intact. The exofin fusion tape is in good condition. There is minimal soft tissue swelling and ecchymosis surrounding the medial and lateral aspects of the incision. Calf is soft, no tenderness with palpation. Plantar flexion, dorsiflexion, EHL, FHL are intact. Sensory exam to light touch throughout the extremity is intact, dorsal pedis pulses 2+. - Labs CBC & Chem 7: 06/11/20 08:09 Assessment and Plan Assessment: Status post right total hip arthroplasty Plan: Pain control, resume [place] 10 mg/325 mg GI and DVT prophylaxis, aspirin 81 mg twice a day Wound care instructions discussed Icing and elevating techniques discussed Home therapy and nursing after discharge Medical recommendations Plan for discharge home today Time with Patient: Less than 30
[2020-06-12] MEDS: HYDROcodone/APAP 7.5-325MG 1 EACH TAB PO PRN (15:32)
--- NOTE | 2020-06-12 19:22 | P.PN ---
Progress Note - Text Progress Note Date: 06/12/20 - Chief Complaint Right hip pain Consultation: This is a pleasant 64-year-old patient of Dr. grijalva from [place]. Chronic stable medical conditions include COPD, hypertension, obstructive signs, hypothyroid and chronic low back pain. Bipolar disorder. Patient is a current smoker. Patient underwent right total hip arthroplasty. Today- having some pain in the right hip. Wheezing, short of breath. Tired Review of systems: Was done for constitutional, cardiovascular, GI, pulmonary. Musculoskeletal relevant finding as above Active Medications Acetaminophen (Tylenol Tab) 650 mg PO Q4HR PRN PRN Reason: Pain Scale 1 to 5 Last Admin: 06/12/20 11:28 Dose: 650 mg Documented by: Hydrocodone Bitart/Acetaminophen ([place] 10) 1 each PO Q6H PRN PRN Reason: Pain Scale 1 to 5 Last Admin: 06/12/20 08:13 Dose: 1 each Documented by: Hydrocodone Bitart/Acetaminophen ([place] 7.5-325) 2 each PO Q6H PRN PRN Reason: Pain Scale 6 to 10 Last Admin: 06/12/20 15:32 Dose: 2 each Documented by: Albuterol/Ipratropium (Duoneb 0.5 Mg-3 Mg/3 Ml Soln) 3 ml INHALATION RT-Q4H [facility] Last Admin: 06/12/20 15:48 Dose: 3 ml Documented by: Budesonide (Pulmicort) 1 mg INHALATION RT-BID [facility] Last Admin: 06/12/20 12:54 Dose: Not Given Documented by: Enoxaparin Sodium (Lovenox) 40 mg SQ DAILY [facility] Last Admin: 06/12/20 08:06 Dose: 40 mg Documented by: Escitalopram Oxalate (Lexapro) 5 mg PO DAILY [facility] Last Admin: 06/12/20 08:07 Dose: 5 mg Documented by: Famotidine (Pepcid) 20 mg PO DAILY [facility] Last Admin: 06/12/20 08:07 Dose: 20 mg Documented by: Hydromorphone HCl (Dilaudid) 0.5 mg IVP Q3HR PRN PRN Reason: Pain Scale 4 to 6 Last Admin: 06/11/20 18:00 Dose: 0.5 mg Documented by: Lamotrigine (Lamictal) 100 mg PO DAILY [facility] Last Admin: 06/12/20 08:07 Dose: 100 mg Documented by: Levothyroxine Sodium (Synthroid) 50 mcg PO DAILY@0630 [facility] Last Admin: 06/12/20 05:31 Dose: 50 mcg Documented by: Magnesium Hydroxide (Milk Of Magnesia) 2,400 mg PO DAILY PRN PRN Reason: Constipation Multivitamins (Theragran) 1 each PO DAILY [facility] Last Admin: 06/12/20 08:07 Dose: 1 each Documented by: Naloxone HCl (Narcan) 0.2 mg IV Q2M PRN PRN Reason: Opioid Reversal Ondansetron HCl (Zofran) 4 mg IVP DAILY PRN PRN Reason: Nausea And Vomiting Senna/Docusate Sodium (Senokot-S) 2 each PO HS [facility] Last Admin: 06/11/20 20:11 Dose: Not Given Documented by: Tramadol HCl (Ultram) 50 mg PO Q6H PRN PRN Reason: Mild to Moderate Pain Trazodone HCl (Desyrel) 100 mg PO [facility] Last Admin: 06/11/20 20:47 Dose: 100 mg Documented by: Physical examination: VITAL SIGNS: 98.1, 63, 17, 107.625, 91% on 2 L GENERAL: Sitting up in a chair, awake EYES: Pupils equal. Conjunctiva normal. HEENT: External appearance of nose and ears normal, oral cavity grossly normal. NECK: JVD not raised; masses not palpable. HEART: First and second heart sounds are normal; no edema. LUNGS: Respiratory rate increased, decreased breath sounds. Prolonged expiration and wheezing ABDOMEN: Soft, nontender, liver spleen not palpable, no masses palpable. PSYCH: Alert and oriented x3; mood and affect normal. MUSCULAR scheduled: Evidence of OA, dressing over the right hip incision Investigations: White count 10.1 hemoglobin 11.9 Assessment: Right total hip arthroplasty -Acute COPD exacerbation in a current smoker -Chronic nicotine dependence patient cigarette smoker -Essential hypertension -Hypothyroid -Bipolar disorder Plan: Add DuoNeb, inhaled steroids. 1 dose of IV Solu-Medrol 60 mg. Told the patient to hold off overnight. Thank you Dr. Dinh
[2020-06-12] MEDS: predniSONE 20 MG TAB PO SCH (19:30)
[2020-06-12] MEDS: SENNOSIDES-DOCUSATE SODIUM 1 EACH TAB PO SCH (20:00)
[2020-06-12] MEDS: traZODone HCL 100 MG TAB PO SCH (20:48)
[2020-06-13] MEDS: IPRATROPIUM-ALBUTEROL 3 ML NEB INHALATION SCH ×4 (00:23→12:37)
[2020-06-13] MEDS: LEVOTHYROXINE 50 MCG TAB PO SCH (05:38)
[2020-06-13 06:55] LABS: Basophils % (A) 0 %; Eosinophils % (A) 0 %; HCT 38.6 % (34.0-46.0); HGB 12.1 gm/dL (11.4-16.0); Lymphocytes # (A) 0.7 k/uL (1.0-4.8); Lymphocytes % (A) 7 %; MCH 30.3 pg (25.0-35.0); MCHC 31.3 g/dL (31.0-37.0); MCV 96.6 fL (80.0-100.0); Monocytes # (A) 0.3 k/uL (0-1.0); Monocytes % (A) 3 %; Neutrophils # (A) 8.4 k/uL (1.3-7.7); Neutrophils % (A) 89 %; Platelet Count 160 k/uL (150-450); RBC 3.99 m/uL (3.80-5.40); WBC 9.4 k/uL (3.8-10.6)
[2020-06-13] MEDS: ESCITALOPRAM 5 MG TAB PO SCH (07:47)
[2020-06-13] MEDS: MULTIVITAMINS, THERA 1 EACH TAB PO SCH (07:47)
[2020-06-13] MEDS: lamoTRIgine 100 MG TAB PO SCH (07:47)
[2020-06-13] MEDS: FAMOTIDINE 20 MG TAB PO SCH (07:47)
[2020-06-13] MEDS: predniSONE 20 MG TAB PO SCH (07:47)
[2020-06-13] MEDS: ENOXAPARIN 40 MG/0.4 ML SYRINGE SQ SCH (07:47)
[2020-06-13 07:53] VITALS: BP 131/59; TEMP 99.1
[2020-06-13 07:55] VITALS: RESP 16
[2020-06-13] MEDS: HYDROcodone/APAP 7.5-325MG 1 EACH TAB PO PRN ×2 (08:39→12:42)
[2020-06-13] MEDS: BUDESONIDE 1 MG/2 ML NEBU INHALATION SCH (09:10)
--- NOTE | 2020-06-13 10:11 | P.PN ---
Subjective Progress Note Date: 06/13/20 Principal diagnosis: Status post right total hip arthroplasty Patient is evaluated at bedside today, she resting comfortably. Patient was kept another day due to low o2 sats and weezing. She does smoke daily. She is feeling much better after the treatment provided by internal medicine. Objective - Vital Signs Vital signs: Vital Signs Temp 99.1 F 06/13/20 07:00 Pulse 54 L 06/13/20 07:52 Resp 16 06/13/20 07:52 BP 131/59 06/13/20 07:00 Pulse Ox 90 L 06/13/20 07:00 Intake & Output 06/12/20 06/13/20 06/13/20 18:59 06:59 18:59 Intake Total 100 Balance 100 Intake: Oral 100 Other: Voiding Method Bedside Commode Bedside Commode Bedside Commode # Voids 3 1 1 - Exam Right lower extremity: Incision is clean, dry, and intact. The exofin fusion tape is in good condition. There is minimal soft tissue swelling and ecchymosis surrounding the medial and lateral aspects of the incision. Calf is soft, no tenderness with palpation. Plantar flexion, dorsiflexion, EHL, FHL are intact. Sensory exam to light touch throughout the extremity is intact, dorsal pedis pulses 2+. - Labs CBC & Chem 7: 06/13/20 06:25 Labs: Abnormal Lab Results - Last 24 Hours (Table) 06/13/20 Range/Units 06:25 Neutrophils # 8.4 H (1.3-7.7) k/uL Lymphocytes # 0.7 L (1.0-4.8) k/uL Assessment and Plan Assessment: Status post right total hip arthroplasty Plan: Pain control, resume [place] 10 mg/325 mg GI and DVT prophylaxis, aspirin 81 mg twice a day Wound care instructions discussed Icing and elevating techniques discussed Home therapy and nursing after discharge Medical recommendations Plan for discharge home today Time with Patient: Less than 30
[2020-06-13 13:07] VITALS: PULSE 70
--- NOTE | 2020-06-13 23:35 | P.PN ---
Progress Note - Text Progress Note Date: 06/13/20 - Chief Complaint Right hip pain Consultation: This is a pleasant 64-year-old patient of Dr. grijalva from [place]. Chronic stable medical conditions include COPD, hypertension, obstructive signs, hypothyroid and chronic low back pain. Bipolar disorder. Patient is a current smoker. Patient underwent right total hip arthroplasty. patient developed COPD exacerbation. Given in his steroids and bronchitis. Today- breathing much improved. Sitting up. Putting diet. Pain better. Did work with therapy. Review of systems: Was done for constitutional, cardiovascular, GI, pulmonary. Musculoskeletal relevant finding as above current medications reviewed in electronic records Physical examination: VITAL SIGNS: 99.1, 66, 18, 131/59, 96% on 2 L GENERAL: sitting up, comfortable EYES: Pupils equal. Conjunctiva normal. HEENT: External appearance of nose and ears normal, oral cavity grossly normal. NECK: JVD not raised; masses not palpable. HEART: First and second heart sounds are normal; no edema. LUNGS: Respiratory rate inormal, decreased breath sounds. ABDOMEN: Soft, nontender, liver spleen not palpable, no masses palpable. PSYCH: Alert and oriented x3; mood and affect normal. MUSCULAR scheduled: Evidence of OA, dressing over the right hip incision Investigations: white count 9.4 hemoglobin 12.1 Assessment: Right total hip arthroplasty -Acute COPD exacerbation in a current smoker-improved -Chronic nicotine dependence patient cigarette smoker -Essential hypertension -Hypothyroid -Bipolar disorder Plan: steroid taper and DuoNeb prescribed for home. Discussed with the patient. Thank you Dr. Vraghese
== END 2020-06-13 14:42 | disposition home health service (06) ==
LOC: OR 06:43 → 4SSUR 09:30 → OR 06-11 14:43
PROVIDERS: ADMIT Orthopaedic Surgery; ATTEND Orthopaedic Surgery
DX: M16.11 Unilateral primary osteoarthritis, right hip (principal); J44.1 Chronic obstructive pulmonary disease with (acute) exacerbation; F17.210 Nicotine dependence, cigarettes, uncomplicated; I10 Essential (primary) hypertension; E03.9 Hypothyroidism, unspecified; K21.9 Gastro-esophageal reflux disease without esophagitis; F41.0 Panic disorder [episodic paroxysmal anxiety]; F31.9 Bipolar disorder, unspecified; G89.29 Other chronic pain; M54.5 Low back pain; H92.01 Otalgia, right ear; Z79.890 Hormone replacement therapy; Z79.51 Long term (current) use of inhaled steroids; Z79.891 Long term (current) use of opiate analgesic; Z79.899 Other long term (current) drug therapy; Z88.7 Allergy status to serum and vaccine; Z88.8 Allergy status to other drugs, medicaments and biological substances; Z91.040 Latex allergy status; Z98.890 Other specified postprocedural states; Z80.0 Family history of malignant neoplasm of digestive organs
CPT/HCPCS: 94640 ×3; 94760; 97116; 97162; 97535 ×3; 97166; 85025 ×2; 88300; 73501; 27130; G0378 ×3; C1776; J1100; J2930; J0690 ×3; J2405; J1650 ×3; J1885; J7512 ×2; J1170 ×2; 86850; 86900; 86901

== ENCOUNTER → 2020-11-28 | Outpatient (CLI) | payer MEDICARE ==
--- NOTE | 2020-11-28 14:19 | MM ---
Reason for exam: additional evaluation requested from prior study. Last mammogram was performed 1 year and 2 months ago. History: Patient is postmenopausal. Took hormonal contraceptives for 5 years. Took estrogen for 1 month. Physical Findings: Nurse did not find any significant physical abnormalities on exam. MG 3D Diag Mammo W/Cad CARMELO Bilateral CC and MLO view(s) were taken. XCCL view(s) were taken of the right breast. Prior study comparison: September 18, 2019, right breast MG work up mamm w CAD RT. September 04, 2019, bilateral MG screening mammo w CAD. The breast tissue is heterogeneously dense. This may lower the sensitivity of mammography. These results were verbally communicated with the patient and result sheet given to the patient on 11/28/20. ASSESSMENT: Incomplete: need additional imaging evaluation, BI-RAD 0 RECOMMENDATION: Ultrasound of the left breast.
--- NOTE | 2020-11-28 14:20 | USB ---
Reason for exam: additional evaluation requested from abnormal screening. History: Patient is postmenopausal. Took hormonal contraceptives for 5 years. Took estrogen for 1 month. US Breast Limited LT Right limited breast ultrasound including focal area of concern, retroareolar and axilla demonstrates no cystic or solid lesion seen. These results were verbally communicated with the patient and result sheet given to the patient on 11/28/20. ASSESSMENT: Benign, BI-RAD 2 RECOMMENDATION: Routine screening mammogram of both breasts. Manage patient on a clinical basis.
== END | disposition home or self-care (01) ==
LOC: RADMAMWWP 12:37
PROVIDERS: ATTEND Family Medicine
DX: R92.8 Other abnormal and inconclusive findings on diagnostic imaging of breast (principal)
CPT/HCPCS: 77066; 76642; G0279; 77062

== ENCOUNTER → 2021-01-22 | Outpatient (CLI) | payer MEDICARE ==
--- NOTE | 2021-01-22 15:35 | MR ---
EXAMINATION TYPE: MR lumbar spine wo con DATE OF EXAM: 01/22/2021 COMPARISON: NONE HISTORY: Low back pain since June 2020 that radiates down right leg. TECHNIQUE: Multiplanar, multisequence imaging of the lumbar spine is performed without IV contrast. FINDINGS: Sagittal images of the lumbar spine show vertebral body height to appear satisfactory. Alig nment is straightened. Multilevel disc desiccation. Mild disc space narrowing L2-L3 level. The conus medullaris is normal in position and signal ending mid L1 level. Mild multilevel anterior spurring. S mall hemangioma left L2 level sagittal image 6. Axial images at T12-L1 level show mild broad disc bulge minimally effacing anterior thecal sac. Axial images at L1-L2 level show mild broad disc bulge minimally effacing anterior thecal sac. Axial images at L2-L3 level show mild/moderate broad disc bulge mildly effacing anterior thecal sac a nd mild facet degenerative changes bilaterally. There is mild left-sided anterior inferior neural for aminal narrowing. Axial images at L3-L4 level show mild/moderate broad-based disc bulge effacing anterior thecal sac an d mild facet arthropathy bilaterally. There is mild to moderate left greater than right bilateral ant erior inferior neural foraminal narrowing. Axial images at L4-L5 level show [id number] broad disc bulge with central disc protrusion compo nent. There is mild/moderate facet arthropathy bilaterally. There is effacement of the anterior theca l sac and mild bilateral neural foraminal narrowing. Axial images at L5-S1 level show moderate to advanced facet arthropathy bilaterally. There is central disc protrusion minimally effacing anterior thecal sac. There is mild bilateral anterior inferior ne ural foraminal narrowing. IMPRESSION: Straightening of lumbar spine with multilevel degenerative changes as detailed above.
== END ==
LOC: RADMRIMAIN 14:06
PROVIDERS: ATTEND Orthopaedic Surgery
DX: M51.17 Intervertebral disc disorders with radiculopathy, lumbosacral region (principal); M51.15 Intervertebral disc disorders with radiculopathy, thoracolumbar region; M47.27 Other spondylosis with radiculopathy, lumbosacral region; M99.73 Connective tissue and disc stenosis of intervertebral foramina of lumbar region
CPT/HCPCS: 72148

== ENCOUNTER → 2021-04-28 | Outpatient (CLI) | payer MEDICARE ==
--- NOTE | 2021-04-28 16:27 | XR ---
Lumbosacral spine HISTORY: Back pain 5 views of lumbosacral spine correlated to MR lumbar spine 01/22/2021 Bone mineralization is reduced. There is multilevel spondylosis. No evident spondylolysis. Loss of di sc height is present at intervertebral levels. There is a slight spinal curvature. Sclerosis present in the posterior elements of the lower lumbar spine. Lumbar vertebral bodies show preserved height an d alignment, mild anterolisthesis grade 1 L5-S1. IMPRESSION: Osteopenia, degenerative disc disease, facet arthropathy.
== END | disposition home or self-care (01) ==
LOC: RADXRYALE 15:24
PROVIDERS: ATTEND Internal Medicine
DX: M85.80 Other specified disorders of bone density and structure, unspecified site (principal); M51.37 Other intervertebral disc degeneration, lumbosacral region; M46.97 Unspecified inflammatory spondylopathy, lumbosacral region
CPT/HCPCS: 72110

== ENCOUNTER → 2021-12-06 | Outpatient (CLI) | payer MEDICARE ==
--- NOTE | 2021-12-06 10:17 | MR ---
EXAMINATION TYPE: MR lumbar spine wo con DATE OF EXAM: 12/06/2021 COMPARISON: 01/22/2021 HISTORY: LBP, RLE radiculopathy. TECHNIQUE: Multiplanar, multisequence images of the lumbar spine were acquired without IV contrast. Findings: The lumbar vertebral segments are normal in height and alignment and there is no fracture or subluxat ion. There is mild degenerative disc disease L2-3, L3-4, L4-5 and L5-S1 level where there is loss of signa l intensity in circumferential disc bulge. There is no lumbar disc herniation. Conus medullaris and cauda equina appear normal. There is mild neural foraminal stenosis at the L3-4 and L4-5 on the right There is mild facet arthropathy at the L3-4, L4-5 and L5-S1 levels. The paraspinal soft tissues are unremarkable. IMPRESSION: 1. No lumbar spine fracture or malalignment. 2. Mild degenerative disc disease throughout the lumbar region. 3. Mild facet arthropathy in the lower lumbar spine. 4. No lumbar disc herniation or spinal stenosis. 5. Mild neural foraminal stenosis at the L3-4 and L4-5 levels on the right. 6. No significant interval change compared to prior study.
== END | disposition home or self-care (01) ==
LOC: RADMRIMAIN 09:08
PROVIDERS: ATTEND Orthopaedic Surgery
DX: M48.061 Spinal stenosis, lumbar region without neurogenic claudication (principal); M51.36 Other intervertebral disc degeneration, lumbar region; M46.96 Unspecified inflammatory spondylopathy, lumbar region
CPT/HCPCS: 72148

== ENCOUNTER 2022-03-03 21:55 | Inpatient (IN) | payer MEDICARE ==
[2022-03-03] MEDS ORDERED: ACETAMINOPHEN TAB 500 MG TAB PO STA (22:45)
[2022-03-03] MEDS: SODIUM CHLORIDE 0.9% 500 ML 500 ML IV SCH ×2 (22:45→23:18)
[2022-03-03 23:13] LABS: Basophils # (A) 0.1 k/uL (0-0.2); Basophils % (A) 1 %; Eosinophils # (A) 0.1 k/uL (0-0.7); Eosinophils % (A) 1 %; HCT 41.5 % (34.0-46.0); HGB 13.1 gm/dL (11.4-16.0); Lymphocytes # (A) 0.7 k/uL (1.0-4.8); Lymphocytes % (A) 5 %; MCH 29.9 pg (25.0-35.0); MCHC 31.5 g/dL (31.0-37.0); MCV 94.9 fL (80.0-100.0); Mean Platelet Volume 7.5; Monocytes # (A) 0.7 k/uL (0-1.0); Monocytes % (A) 6 %; Neutrophils # (A) 10.8 k/uL (1.3-7.7); Neutrophils % (A) 86 %; Platelet Count 197 k/uL (150-450); RBC 4.38 m/uL (3.80-5.40); RDW 13.6 % (11.5-15.5); WBC 12.6 k/uL (3.8-10.6)
--- NOTE | 2022-03-03 23:18 | XR ---
EXAMINATION TYPE: XR chest 1V portable DATE OF EXAM: 03/03/2022 COMPARISON: 04/19/2016 HISTORY: Fever TECHNIQUE: FINDINGS: There is patchy airspace infiltrate in the left lower lobe and right lung base as well as r ight mid lung field. Heart size is normal. No heart failure seen. There is some blunting of the right costophrenic angle. There is previous left shoulder surgery. Trachea is midline. IMPRESSION: Moderate bilateral pneumonia which appears new compared to old exam. No definite heart fa ilure. Mild right pleural effusion.
[2022-03-03 23:22] LABS: INR 0.9 (<1.2); Partial Thromboplastin Time 29.1 sec (22.0-30.0); Prothrombin Time 10.3 sec (9.0-12.0)
[2022-03-03 23:24] LABS: Albumin 3.6 g/dL (3.5-5.0); Calcium 8.6 mg/dL (8.4-10.2); Potassium 4.3 mmol/L (3.5-5.1); Total Bilirubin 0.9 mg/dL (0.2-1.3); Total Protein 6.6 g/dL (6.3-8.2)
[2022-03-03] MEDS ORDERED: cefTRIAXone IN SWFI 1,000 MG/10 ML SYRINGE IVP STA (23:44)
--- NOTE | 2022-03-03 23:44 | ED ---
General Adult HPI - General Chief complaint: Altered Mental Status Stated complaint: Fall,Dizzy Time Seen by Provider: 03/03/22 22:45 Source: patient, family Mode of arrival: wheelchair Limitations: altered mental status, physical limitation - History of Present Illness Initial comments: Letha is a 66-year-old female who is brought to the emergency department today by her . Doesn't concerned that she is ill, he states that she's been sleeping a lot and seems confused when she is awake. She is been like this for a couple of days. Patient denies any acute complaints but reports she just doesn't feel good. She denies any cough or chest pain. - Related Data Home Medications Medication Instructions Recorded Confirmed Levothyroxine Sodium [Levoxyl] 50 mcg PO DAILY 04/04/14 06/10/20 Multivitamins, Thera [Multivitamin 1 tab PO DAILY 06/25/19 06/10/20 (formulary)] Budesonide-Formot 160-4.5 Mcg 2 puff INHALATION DIRECTED PRN 06/03/20 06/10/20 [Symbicort 160-4.5 Mcg Inhaler] Calcium Carb-Vit D 500Mg-5Mcg 1 each PO DAILY 06/03/20 06/10/20 [Oscal 500+D 5 Mcg (200 Iu)] Previous Rx's Medication Instructions Recorded amLODIPine [Norvasc] 10 mg PO DAILY 30 Days #30 tab 01/27/18 Escitalopram [Lexapro] 5 mg PO DAILY #14 tab 07/02/19 lamoTRIgine [LaMICtal] 100 mg PO DAILY #14 tab 07/02/19 traZODone HCL [Desyrel] 100 mg PO HS #14 tab 07/02/19 Aspirin [Adult Low Dose Aspirin EC] 81 mg PO BID #60 tablet. 06/11/20 Famotidine [Pepcid] 20 mg PO DAILY #30 tablet 06/11/20 Hydrocodone/Acetaminophen [[place] 1 each PO Q6H PRN #28 tab 06/11/20 10-325] Ipratropium-Albuterol Nebulize 3 ml INHALATION TID #90 ml 06/13/20 [Duoneb 0.5 mg-3 mg/3 ml Soln] predniSONE 10 mg PO DAILY #30 tab 06/13/20 Allergies Allergy/AdvReac Type Severity Reaction Status Date / Time influenza virus vaccine qs Allergy Unknown Unknown Verified 03/03/22 22:40 [id number] (36 mos, up) [From Fluarix Quad] latex Allergy Unknown Rash/Hives Verified 03/03/22 22:40 duloxetine HCl AdvReac Unknown INCREASED Verified 03/03/22 22:40 [From Cymbalta] DEPRESSION Review of Systems ROS Statement: Those systems with pertinent positive or pertinent negative responses have been documented in the HPI. ROS Other: All systems not noted in ROS Statement are negative. Past Medical History Past Medical History: COPD, Hypertension, Musculoskeletal Disorder, Thyroid Disorder Additional Past Medical History / Comment(s): CHRONIC BACK PAIN, OCCASIONAL DIZZINESS. History of Any Multi-Drug Resistant Organisms: None Reported Past Surgical History: Section, Orthopedic Surgery, Tonsillectomy Additional Past Surgical History / Comment(s): left shoulder, RIGHT HIP SURGERY Past Anesthesia/Blood Transfusion Reactions: No Reported Reaction Past Psychological History: Anxiety, Bipolar, Depression, Panic Disorder Smoking Status: Current every day smoker Past Alcohol Use History: None Reported Past Drug Use History: None Reported - Past Family History Mother Family Medical History: Cancer Additional Family Medical History / Comment(s): PANCREATIC CANCER General Exam - General Exam Comments Initial Comments: Physical Exam GENERAL: Chronically ill appearing appears older than stated age HENT: Normocephalic, Atraumatic. EYES: PERRL, EOMI PULMONARY: Crackles in all lung anglin CARDIOVASCULAR: RRR ABDOMEN: Soft and nontender with normal bowel sounds. SKIN: Pale : Deferred NEUROLOGIC: Patient is alert and oriented x3. Moving all extremities spontaneously MUSCULOSKELETAL: Generalized atrophy Normal extremities with adequate strength and full range of motion. No lower extremity swelling or edema. No calf tenderness. PSYCHIATRIC: Normal psychiatric evaluation. Limitations: altered mental status, physical limitation Course Vital Signs 03/03/22 03/04/22 03/04/22 22:30 00:55 01:06 Temperature 101.4 F H 98.3 F Pulse Rate 95 68 75 Respiratory 18 20 18 Rate Blood Pressure 99/53 98/56 106/58 O2 Sat by Pulse 67 L 91 L 94 L Oximetry EKG Findings - EKG Comments: EKG Findings:: EKG was obtained due to hypoxia, EKG was obtained at 2252, rate is 81 rhythm is sinus there is a normal axis, there are normal intervals, MD 143, QRS 102, QTc is 395, no acute ST elevations or depressions no evidence of ischemia or infarction. Medical Decision Making - Medical Decision Making The patient was seen and evaluated, history was obtained from the patient and at bedside Labs and imaging were obtained, x-rays concerning for a lateral pneumonia Patient had hypoxia and pneumonia, she will warrant admission to the hospital Antibiotics were ordered Patient care was discussed with Dr. Ruvalcaba who accepts admission - Lab Data Result diagrams: 03/03/22 23:03 03/03/22 23:03 Lab Results 03/03/22 03/03/22 03/03/22 Range/Units 23:03 23:03 23:03 WBC 12.6 H (3.8-10.6) k/uL RBC 4.38 (3.80-5.40) m/uL Hgb 13.1 (11.4-16.0) gm/dL Hct 41.5 (34.0-46.0) % MCV 94.9 (80.0-100.0) fL MCH 29.9 (25.0-35.0) pg MCHC 31.5 (31.0-37.0) g/dL RDW 13.6 (11.5-15.5) % Plt Count 197 (150-450) k/uL MPV 7.5 Neutrophils % 86 % Lymphocytes % 5 % Monocytes % 6 % Eosinophils % 1 % Basophils % 1 % Neutrophils # 10.8 H (1.3-7.7) k/uL Lymphocytes # 0.7 L (1.0-4.8) k/uL Monocytes # 0.7 (0-1.0) k/uL Eosinophils # 0.1 (0-0.7) k/uL Basophils # 0.1 (0-0.2) k/uL PT 10.3 (9.0-12.0) sec INR 0.9 (<1.2) APTT 29.1 (22.0-30.0) sec Sodium 132 L (137-145) mmol/L Potassium 4.3 (3.5-5.1) mmol/L Chloride 97 L (98-107) mmol/L Carbon Dioxide 33 H (22-30) mmol/L Anion Gap 2 mmol/L BUN 14 (7-17) mg/dL Creatinine 0.83 (0.52-1.04) mg/dL Est GFR (CKD-EPI)AfAm 86 (>60 ml/min/1.73 sqM) Est GFR (CKD-EPI)NonAf 75 (>60 ml/min/1.73 sqM) Glucose 115 H (74-99) mg/dL Plasma Lactic Acid Lucas (0.7-2.0) mmol/L Calcium 8.6 (8.4-10.2) mg/dL Total Bilirubin 0.9 (0.2-1.3) mg/dL AST 31 (14-36) U/L ALT 19 (4-34) U/L Alkaline Phosphatase 131 H (38-126) U/L Total Protein 6.6 (6.3-8.2) g/dL Albumin 3.6 (3.5-5.0) g/dL Coronavirus (PCR) (Not Detectd) Influenza Type A RNA (Not Detectd) Influenza Type B (PCR) (Not Detectd) 03/03/22 03/03/22 03/03/22 Range/Units 23:03 23:03 23:03 WBC (3.8-10.6) k/uL RBC (3.80-5.40) m/uL Hgb (11.4-16.0) gm/dL Hct (34.0-46.0) % MCV (80.0-100.0) fL MCH (25.0-35.0) pg MCHC (31.0-37.0) g/dL RDW (11.5-15.5) % Plt Count (150-450) k/uL MPV Neutrophils % % Lymphocytes % % Monocytes % % Eosinophils % % Basophils % % Neutrophils # (1.3-7.7) k/uL Lymphocytes # (1.0-4.8) k/uL Monocytes # (0-1.0) k/uL Eosinophils # (0-0.7) k/uL Basophils # (0-0.2) k/uL PT (9.0-12.0) sec INR (<1.2) APTT (22.0-30.0) sec Sodium (137-145) mmol/L Potassium (3.5-5.1) mmol/L Chloride (98-107) mmol/L Carbon Dioxide (22-30) mmol/L Anion Gap mmol/L BUN (7-17) mg/dL Creatinine (0.52-1.04) mg/dL Est GFR (CKD-EPI)AfAm (>60 ml/min/1.73 sqM) Est GFR (CKD-EPI)NonAf (>60 ml/min/1.73 sqM) Glucose (74-99) mg/dL Plasma Lactic Acid Lucas 1.1 (0.7-2.0) mmol/L Calcium (8.4-10.2) mg/dL Total Bilirubin (0.2-1.3) mg/dL AST (14-36) U/L ALT (4-34) U/L Alkaline Phosphatase (38-126) U/L Total Protein (6.3-8.2) g/dL Albumin (3.5-5.0) g/dL Coronavirus (PCR) Not Detected (Not Detectd) Influenza Type A RNA Not Detected (Not Detectd) Influenza Type B (PCR) Not Detected (Not Detectd) Disposition Clinical Impression: Pneumonia Disposition: ADMITTED IP TO THIS HOSP Condition: Stable Is patient prescribed a controlled substance at d/c from ED?: No Referrals: Mitul Rodriguez MD [Primary Care Provider] - 1-2 days
[2022-03-04] MEDS ORDERED: AZITHROMYCIN 500 MG in SODIUM CHLORIDE 0.9% 250 ML IVPB ONE ×2
[2022-03-04] MEDS: SODIUM CHLORIDE 0.9% 500 ML 500 ML IV SCH ×2 (00:15→00:45)
--- NOTE | 2022-03-04 02:37 | P.HPIM ---
History of Present Illness H&P Date: 03/04/22 The patient is a 66-year-old female with a PMH of extensive tobacco abuse, COPD, hypertension, hypothyroidism who was brought into the emergency room by her for confusion. History supplemented by the ED physician and the chart as the patient was confused at the time of interview. The patient has reportedly been sleeping most days over the past week, and had been hallucinating, attempted to speak to people that were not there. The patient was found to have significant hypoxia upon presentation the emergency room, 67% on room air. She was also febrile to 101.4F with BP 99/53 The patient reports feeling lightheaded over the past few days, and states somewhat worsening chronic cough, productive of yellow-green phlegm. She reports smoking 2-3 packs of cigarettes daily for the past several decades. Denied extrinsic chest discomfort, nausea, vomiting or diaphoresis. Chest x-ray in the emergency room revealed bilateral pneumonia. Laboratory evaluation was remarkable for leukocytosis of 12.6, sodium 132, bicarbonate 33, and lactic acid 1.1. Review of systems: Pertinent positives and negatives as discussed in HPI, a complete review of systems was performed and all other systems are negative. Physical examination: General: non toxic, no distress, appears older than stated age, normal weight Derm: no unusual rashes/lesions no unusual ecchymoses, warm, dry Head: atraumatic, normocephalic, symmetric Eyes: EOMI, no lid lag, anicteric sclera, pupils equal round reactive to light ENT: Nose and ears atraumatic, no thrush, no pharyngeal erythema Neck: No thyromegaly, no cervical lymphadenopathy, trachea midline, supple Mouth: no lip lesion, mucus membranes moist Cardiovascular: S1S2 reg, no murmur, positive posterior tibial pulse bilateral, no edema, capillary refill less than 2 seconds Lungs: Diffuse coarse breath sounds without wheezing or rales, no accessory musc le use Abdominal: soft, nontender to palpation, no guarding, no appreciable organomegaly, normal bowel sounds Ext: no gross muscle atrophy, muscle strength 4 out of 5 in all 4 extremities grossly, no contractures, Neuro: CN II-XI grossly intact, light touch intact all 4 extremities, finger to nose within normal limits, Psych: Sleepy, oriented to person and place only, not oriented to time Assessment/plan Sepsis secondary to community-acquired pneumonia -Continue with azithromycin and ceftriaxone -Gentle IV hydration -Follow up blood cultures Altered mental status -Suspected toxic metabolic encephalopathy in setting of sepsis from pneumonia -Continue with above management Hyponatremia, likely due to poor oral intake -Gentle IV hydration Chronic conditions: COPD, hypertension, hypothyroidism -Continue with home meds DVT prophylaxis -Heparin subcu The patient is admitted with an anticipated greater than 2 midnight stay for evaluation of pneumonia CODE STATUS: Full Code Discussed with: Patient Anticipated discharge date: 2-[address]: Home Past Medical History Past Medical History: COPD, Hypertension, Musculoskeletal Disorder, Thyroid Disorder Additional Past Medical History / Comment(s): CHRONIC BACK PAIN, OCCASIONAL DIZZINESS. History of Any Multi-Drug Resistant Organisms: None Reported Past Surgical History: Section, Orthopedic Surgery, Tonsillectomy Additional Past Surgical History / Comment(s): left shoulder, RIGHT HIP SURGERY Past Anesthesia/Blood Transfusion Reactions: No Reported Reaction Past Psychological History: Anxiety, Bipolar, Depression, Panic Disorder Smoking Status: Current every day smoker Past Alcohol Use History: None Reported Past Drug Use History: None Reported - Past Family History Mother Family Medical History: Cancer Additional Family Medical History / Comment(s): PANCREATIC CANCER Medications and Allergies Home Medications Medication Instructions Recorded Confirmed Type Levothyroxine Sodium [Levoxyl] 50 mcg PO DAILY 04/04/14 06/10/20 History amLODIPine [Norvasc] 10 mg PO DAILY 30 Days #30 tab 01/27/18 06/10/20 Rx Multivitamins, Thera [Multivitamin 1 tab PO DAILY 06/25/19 06/10/20 History (formulary)] Escitalopram [Lexapro] 5 mg PO DAILY #14 tab 07/02/19 06/10/20 Rx lamoTRIgine [LaMICtal] 100 mg PO DAILY #14 tab 07/02/19 06/10/20 Rx traZODone HCL [Desyrel] 100 mg PO HS #14 tab 07/02/19 06/10/20 Rx Budesonide-Formot 160-4.5 Mcg 2 puff INHALATION DIRECTED PRN 06/03/20 0 History [Symbicort 160-4.5 Mcg Inhaler] Calcium Carb-Vit D 500Mg-5Mcg 1 each PO DAILY 06/03/20 06/10/20 History [Oscal 500+D 5 Mcg (200 Iu)] Aspirin [Adult Low Dose Aspirin EC] 81 mg PO BID #60 tablet.dr 06/11/20 Rx Famotidine [Pepcid] 20 mg PO DAILY #30 tablet 06/11/20 Rx Hydrocodone/Acetaminophen [[place] 1 each PO Q6H PRN #28 tab 06/11/20 Rx 10-325] Ipratropium-Albuterol Nebulize 3 ml INHALATION TID #90 ml 06/13/20 Rx [Duoneb 0.5 mg-3 mg/3 ml Soln] predniSONE 10 mg PO DAILY #30 tab 06/13/20 Rx Allergies Allergy/AdvReac Type Severity Reaction Status Date / Time influenza virus vaccine qs Allergy Unknown Unknown Verified 03/03/22 22:40 [id number] (36 mos, up) [From Fluarix Quad] latex Allergy Unknown Rash/Hives Verified 03/03/22 22:40 duloxetine HCl AdvReac Unknown INCREASED Verified 03/03/22 22:40 [From Cymbalta] DEPRESSION Physical Exam Vitals: Vital Signs Temp Pulse Resp BP Pulse Ox 03/04/22 01:06 75 18 106/58 94 L 03/04/22 00:55 98.3 F 68 20 98/56 91 L 03/03/22 22:30 101.4 F H 95 18 99/53 67 L Intake and Output 03/03/22 03/03/22 03/04/22 14:59 22:59 06:59 Other: Weight 87.997 kg Results CBC & Chem 7: 03/03/22 23:03 03/03/22 23:03 Labs: Abnormal Lab Results - Last 24 Hours (Table) 03/03/22 03/03/22 Range/Units 23:03 23:03 WBC 12.6 H (3.8-10.6) k/uL Neutrophils # 10.8 H (1.3-7.7) k/uL Lymphocytes # 0.7 L (1.0-4.8) k/uL Sodium 132 L (137-145) mmol/L Chloride 97 L (98-107) mmol/L Carbon Dioxide 33 H (22-30) mmol/L Glucose 115 H (74-99) mg/dL Alkaline Phosphatase 131 H (38-126) U/L
[2022-03-04 03:52] LABS: Appearance,Urine Clear (Clear); Bilirubin,Urine Negative (Negative); Blood,Urine Negative (Negative); Color,Urine Yellow; Glucose,Urine (UA) Negative (Negative); Ketones,Urine Negative (Negative); Leukocyte Esterase,Urine Negative (Negative); Nitrite,Urine Negative (Negative); PH, Urine 6.5 (5.0-8.0); Protein,Urine Trace (Negative); Specific Gravity,Urine 1.006 (1.001-1.035); Urobilinogen,Urine <2.0 mg/dL (<2.0)
[2022-03-04] MEDS ORDERED: NALOXONE 0.4 MG/ML 1 ML VIAL IV PRN (03:59)
[2022-03-04 06:41] LABS: HCT 40.6 % (34.0-46.0); HGB 12.6 gm/dL (11.4-16.0); Hypochromasia Moderate; MCH 30.4 pg (25.0-35.0); MCV 98.2 fL (80.0-100.0); Mean Platelet Volume 8.6; Platelet Count 184 k/uL (150-450); RBC 4.14 m/uL (3.80-5.40); RDW 13.6 % (11.5-15.5); WBC 10.8 k/uL (3.8-10.6)
[2022-03-04 07:04] LABS: African American GFR (CKD) >90 (>60 ml/min/1.73 sqM); Anion Gap 6 mmol/L; Blood Urea Nitrogen 11 mg/dL (7-17); Calcium 7.8 mg/dL (8.4-10.2); Carbon Dioxide 24 mmol/L (22-30); Chloride 108 mmol/L (98-107); Glucose 105 mg/dL (74-99); Non-African American GFR(CKD) >90 (>60 ml/min/1.73 sqM); Potassium 4.1 mmol/L (3.5-5.1); Sodium 138 mmol/L (137-145)
[2022-03-04] MEDS: HEPARIN SODIUM,PORCINE/PF 5,000 UNIT/0.5 ML SYRINGE SQ SCH ×3 (14:02→23:39)
[2022-03-04] MEDS ORDERED: ALBUTEROL NEBULIZED 2.5 MG/3 ML INHALATION PRN (14:13)
[2022-03-04] MEDS: IPRATROPIUM-ALBUTEROL 3 ML NEB INHALATION SCH ×2 (16:45→20:44)
--- NOTE | 2022-03-04 16:58 | CT ---
EXAMINATION TYPE: CT chest angio for PE DATE OF EXAM: 03/04/2022 COMPARISON: Chest x-ray 03/03/2022 HISTORY: Hypoxia. CT DLP: 222.3 mGycm Automated exposure control for dose reduction was used. CONTRAST: CT Chest for pulmonary embolism performed with with IV Contrast, patient injected with 77ml mL of Iso bernarda 370. Three-dimensional reconstructions were performed on an alternate workstation and reviewed FINDINGS: LUNGS: There are bilateral areas of air bronchograms especially in the lung bases but also scattered within the perihilar location on the left, groundglass of densities are present peripherally in the u pper lobes greater on the left than on the right, small right pleural effusion is present MEDIASTINUM: There is satisfactory enhancement of the pulmonary artery and its branches, there is no CT evidence for pulmonary embolism. There is questionable retrocaval pretracheal adenopathy, prevasc ular adenopathy suspected possible superior mediastinal adenopathy. The heart is enlarged. No perica rdial effusion is seen. AORTA: No additional significant abnormality is seen. OTHER: Postop change noted to the left shoulder. Segmentation anomaly present in the upper thoracic spine, there is a spinal curvature, multilevel spondylosis. IMPRESSION: Correlate for pneumonia. There is cardiomegaly. No pulmonary embolus is evident. Small right pleural effusion.
[2022-03-04] MEDS: SODIUM CHLORIDE 0.9% 1,000 ML IV SCH ×2 (17:08→17:13)
[2022-03-04] MEDS: methylPREDNISolone SOD SUCCI 125 MG/2 ML VIAL IV SCH (17:09)
[2022-03-04 17:24] LABS: ABG Base Excess -0.2 mmol/L; ABG HCO3 25 mmol/L (21-25); ABG Oxygen Saturation 90.5 % (94-97); ABG PCO2 43 mmHg (35-45); ABG PH 7.37 (7.35-7.45); ABG TCO2 26 mmol/L (19-24); Allen Test Performed? Yes
[2022-03-04 17:28] LABS: ABG PO2 58 mmHg (83-108)
--- NOTE | 2022-03-04 21:51 | P.PN ---
Subjective Progress Note Date: 03/04/22 (delayed charting seen at 1330) Recent 66-year-old female with a history of COPD, tobacco abuse, hypertension, and hypothyroidism who presented to the ER with complaints of altered mentation. In the ER she underwent an extensive evaluation. She was found to be febrile with a fever of 101.4 to blood pressure 99/53. Laboratory analysis showed an elevated white blood cell count of 12.6, sodium 132, COVID and flu testing were negative. Chest x-ray demonstrated moderate bilateral pneumonia. She was sta rted on Zithromax and ceftriaxone was admitted for further monitoring. Patient became increasingly hypoxic requiring increased O2. Patient seen and examined at bedside in the ER. She continues to complain of shortness of breath and feeling very tired with difficulty concentrating. She denies any cough. She states she is worried about getting home to her and her dog. General: Ill-appearing, moderate distress, appears at stated age Derm: warm, dry Head: atraumatic, normocephalic, symmetric Eyes: EOMI, no lid lag, anicteric sclera Mouth: no lip lesion, mucus membranes moist Cardiovascular: S1S2 reg, no murmur, positive posterior tibial pulse bilateral, Lungs: Wheezing bilaterally left greater than right, + 3 word conversational dyspnea, no accessory muscle use Abdominal: soft, nontender to palpation, no guarding, no appreciable organomegaly Ext: no gross muscle atrophy, no edema, no contractures Neuro: CN II-XI grossly intact, no focal neuro deficits Psych: Awake but slow thinking, oriented to being in the hospital and having pneumonia-year do not past. Appropriate affect Assessment/plan: Community-acquired pneumonia with sepsis Acute exacerbation of COPD Acute hypoxic respiratory failure Metabolic encephalopathy -Patient was started on steroids and bronchodilators -Stat ABG was ordered which confirmed hypoxemia -CTA of the chest was ordered which demonstrated pneumonia without signs of pulmonary embolism -Continue with Rocephin and Zithromax -Consult pulmonary -Wean O2 as able -Safe and supportive environment Hyponatremia, improved -Likely secondary to poor oral intake -Continue with IV fluids Hypertension -Resume Norvasc -Follow blood pressures Hypothyroidism -Resume Synthroid Chronic pain -Continue to hold Subutex due to altered mentation Anxiety, Bipolar disorder, depression -Hold Vistaril, does a row, Valium, and Lamictal as all can sedating DVT prophylaxis: Heparin Discussed with: patient, nursing Anticipated discharge: in 2-[address]: home A total of 45minutes was spent on the care of this complex patient more than 50% of the time was spent in counseling and care coordination. Objective - Vital Signs Vital signs: Vital Signs Temp 99.8 F H 03/04/22 18:23 Pulse 92 03/04/22 20:52 Resp 18 03/04/22 18:23 BP 120/71 03/04/22 18:23 Pulse Ox 90 L 03/04/22 18:27 Intake & Output 03/04/22 03/04/22 03/05/22 06:59 18:59 06:59 Intake Total 480 Balance 480 Weight 87.997 kg 87.997 kg Intake: Oral 480 - Labs CBC & Chem 7: 03/04/22 05:34 03/04/22 05:34 Labs: Abnormal Lab Results - Last 24 Hours (Table) 03/03/22 03/03/22 03/04/22 Range/Units 23:03 23:03 03:40 WBC 12.6 H (3.8-10.6) k/uL Neutrophils # 10.8 H (1.3-7.7) k/uL Lymphocytes # 0.7 L (1.0-4.8) k/uL ABG pO2 (83-108) mmHg ABG Total CO2 (19-24) mmol/L ABG O2 Saturation (94-97) % Sodium 132 L (137-145) mmol/L Chloride 97 L (98-107) mmol/L Carbon Dioxide 33 H (22-30) mmol/L Glucose 115 H (74-99) mg/dL Calcium (8.4-10.2) mg/dL Alkaline Phosphatase 131 H (38-126) U/L Urine Protein Trace H (Negative) 03/04/22 03/04/22 03/04/22 Range/Units 05:34 05:34 17:20 WBC 10.8 H (3.8-10.6) k/uL Neutrophils # (1.3-7.7) k/uL Lymphocytes # (1.0-4.8) k/uL ABG pO2 58 L* (83-108) mmHg ABG Total CO2 26 H (19-24) mmol/L ABG O2 Saturation 90.5 L (94-97) % Sodium (137-145) mmol/L Chloride 108 H (98-107) mmol/L Carbon Dioxide (22-30) mmol/L Glucose 105 H (74-99) mg/dL Calcium 7.8 L (8.4-10.2) mg/dL Alkaline Phosphatase (38-126) U/L Urine Protein (Negative)
[2022-03-05] MEDS: AZITHROMYCIN 500 MG TAB PO SCH ×2 (00:04→22:19)
[2022-03-05] MEDS: methylPREDNISolone SOD SUCCI 125 MG/2 ML VIAL IV SCH ×3 (00:23→17:03)
[2022-03-05 04:57] LABS: HCT 42.8 % (34.0-46.0); HGB 12.6 gm/dL (11.4-16.0); Hypochromasia Slight; MCH 28.5 pg (25.0-35.0); MCHC 29.4 g/dL (31.0-37.0); MCV 97.1 fL (80.0-100.0); Platelet Count 250 k/uL (150-450); RBC 4.41 m/uL (3.80-5.40); RDW 13.7 % (11.5-15.5)
[2022-03-05 05:12] LABS: African American GFR (CKD) >90 (>60 ml/min/1.73 sqM); Anion Gap 4 mmol/L; Blood Urea Nitrogen 8 mg/dL (7-17); Carbon Dioxide 26 mmol/L (22-30); Chloride 104 mmol/L (98-107); Glucose 180 mg/dL (74-99); Magnesium 1.9 mg/dL (1.6-2.3); Non-African American GFR(CKD) >90 (>60 ml/min/1.73 sqM); Potassium 3.8 mmol/L (3.5-5.1); Sodium 134 mmol/L (137-145)
[2022-03-05] MEDS: LEVOTHYROXINE 50 MCG TAB PO SCH (05:18)
[2022-03-05] MEDS: IPRATROPIUM-ALBUTEROL 3 ML NEB INHALATION SCH ×4 (08:57→19:20)
[2022-03-05] MEDS: SODIUM CHLORIDE 0.9% 1,000 ML IV SCH ×3 (09:13→20:06)
[2022-03-05] MEDS: HEPARIN SODIUM,PORCINE/PF 5,000 UNIT/0.5 ML SYRINGE SQ SCH ×3 (09:33→23:17)
[2022-03-05] MEDS: amLODIPine 10 MG TAB PO SCH (09:33)
[2022-03-05] MEDS ORDERED: hydrOXYzine pamoate 25 MG CAP PO PRN (10:55)
[2022-03-05] MEDS: lamoTRIgine 100 MG TAB PO SCH ×2 (11:43→21:15)
[2022-03-05] MEDS: diazePAM 5 MG TAB PO PRN (11:44)
[2022-03-05] MEDS: ESCITALOPRAM 20 MG TAB PO SCH (11:44)
[2022-03-05 12:11] VITALS: BMI 35.4
--- NOTE | 2022-03-05 13:34 | P.CNPUL ---
History of Present Illness Consult date: 03/05/22 Requesting physician: Rosamaria Hanson Reason for consult: dyspnea, hypoxemia, pneumonia Chief complaint: Altered mental status History of present illness: 66-year-old white female patient past medical history of COPD, chronic and ongoing heavy nicotine use, patient smokes 3-4 packs a day, hypothyroidism, bipolar disorder, panic disorder, who presented to the emergency department with her who was concerned about her altered mental status, not feeling well. Patient's was concerned that she has been sleeping a lot, seems confused when she was awake and this had been going on for 2 days prior to presentation. Patient denied any other complaints. Denied any chest pain or c ough. EKG showed normal sinus rhythm with no acute ST elevations or depressions, chest x-ray showing moderate bilateral pneumonia with patchy airspace infiltrate in the left lower lobe, and right lung base as well as right middle lung field. No heart failure, there is some blunting of the right co stophrenic angle consistent with small right pleural effusion. CTA chest showed bilateral areas of air bronchograms especially at the lung bases but also scattered within the perihilar location on the left, groundglass densities peripherally in the upper lobes greater on the left than on the right, small right pleural effusion. There was cardiomegaly, no pulmonary embolus was evident. COVID-19 PCR and influenza A and B were negative. Admission blood work showed a white blood cell count of 12.6, hemoglobin of 13.1, correlation profile was within normal limits, sodium is 132, potassium is 4.3, chloride is 97, CO2 is 33, BUN was 14, creatinine 0.83 lactic acid was 1.1, urinalysis showed trace protein, but no sign of infection. Blood cultures were sent, showing no growth at the 24-hour estephanie. She was started on empiric Azithromycin and Rocephin for possibility of community-acquired pneumonia, she was started on IV steroids and nebulized bronchodilators and this consult was initiated. The time of our evaluation patient is awake, and alert, is on high flow oxygen at 9 L satting 87-90%. She is responding appropriately, although seems to be a bit irritable Review of Systems All systems: negative Constitutional: Reports lethargy, Reports weakness, Denies chills, Denies fever Eyes: denies blurred vision, denies pain Ears, nose, mouth and throat: Denies headache, Denies sore throat Cardiovascular: Denies chest pain, Denies shortness of breath Respiratory: Denies cough Gastrointestinal: Denies abdominal pain, Denies diarrhea, Denies nausea, Denies vomiting Genitourinary: Denies dysuria, Denies hematuria Musculoskeletal: Denies myalgias Integumentary: Denies pruritus, Denies rash Neurological: Denies numbness, Denies weakness Psychiatric: Denies anxiety, Denies depression Endocrine: Denies fatigue, Denies weight change Past Medical History Past Medical History: COPD, Hypertension, Musculoskeletal Disorder, Osteoarthritis (OA), Thyroid Disorder Additional Past Medical History / Comment(s): COPDD/Chronic bronchitis, home oxygen prn, chronic back pain, occasional vertigo, hypothyroid, diverticular disease/benign polyp. Smoker 3 PPD History of Any Multi-Drug Resistant Organisms: None Reported Past Surgical History: Section, Joint Replacement, Orthopedic Surgery, Tonsillectomy Additional Past Surgical History / Comment(s): L shoulder arthroscopy, total R hip arthroplasty, surgery for ectopic , colonoscopy Past Anesthesia/Blood Transfusion Reactions: No Reported Reaction Additional Past Anesthesia/Blood Transfusion Reaction / Comment(s): Pt received blood in 1983 without reaction. Smoking Status: Current every day smoker - Past Family History Mother Family Medical History: Cancer Additional Family Medical History / Comment(s): PANCREATIC CANCER Father Additional Family Medical History / Comment(s): Father commited suicide. Medications and Allergies Home Medications Medication Instructions Recorded Confirmed Type Levothyroxine Sodium [Levoxyl] 50 mcg PO DAILY 04/04/14 03/04/22 History amLODIPine [Norvasc] 10 mg PO DAILY 30 Days #30 tab 01/27/18 03/04/22 Rx traZODone HCL [Desyrel] 100 mg PO HS #14 tab 07/02/19 03/04/22 Rx Escitalopram [Lexapro] 20 mg PO DAILY 03/04/22 03/04/22 History buprenorphine HCL [Subutex] 8 mg SUBLINGUAL TID 03/04/22 03/04/22 History diazePAM [Valium] 5 mg PO DAILY PRN 03/04/22 03/04/22 History hydrOXYzine pamoate [Vistaril] 25 mg PO BID PRN 03/04/22 03/04/22 History lamoTRIgine [LaMICtal] 150 mg PO BID 03/04/22 03/04/22 History Allergies Allergy/AdvReac Type Severity Reaction Status Date / Time influenza virus vaccine qs Allergy Unknown Unknown Verified 03/04/22 06:40 [id number] (36 mos, up) [From Fluarix Quad] latex Allergy Unknown Rash/Hives Verified 03/04/22 06:40 duloxetine HCl AdvReac Unknown INCREASED Verified 03/04/22 06:40 [From Cymbalta] DEPRESSION Physical Exam Vitals: Vital Signs Temp Pulse Pulse Resp BP BP BP 03/05/22 12:26 88 03/05/22 12:18 90 03/05/22 09:07 86 03/05/22 09:00 03/05/22 08:57 84 03/05/22 08:00 97.7 F 66 18 128/66 03/05/22 01:01 97.5 F L 66 17 115/62 03/04/22 20:52 92 03/04/22 20:44 90 03/04/22 20:00 98.1 F 85 17 115/52 03/04/22 18:27 03/04/22 18:23 99.8 F H 18 120/71 03/04/22 17:13 102 H 18 119/61 03/04/22 16:59 98 03/04/22 16:49 92 03/04/22 14:00 93 18 119/61 Pulse Ox 03/05/22 12:26 03/05/22 12:18 03/05/22 09:07 03/05/22 09:00 87 L 03/05/22 08:57 03/05/22 08:00 90 L 03/05/22 01:01 95 03/04/22 20:52 03/04/22 20:44 03/04/22 20:00 91 L 03/04/22 18:27 90 L 03/04/22 18:23 89 L 03/04/22 17:13 91 L 03/04/22 16:59 03/04/22 16:49 92 L 03/04/22 14:00 89 L Intake and Output 03/04/22 03/05/22 03/05/22 22:59 06:59 14:59 Intake Total 480 1100 Balance 480 1100 Intake: Intake, IV Titration 1000 Amount Sodium Chloride 0.9% 1, 900 000 ml @ 75 mls/hr IV . [id number] SCOTTY Rx#:[id number] cefTRIAXone 1 gm In 100 Sodium Chloride 0.9% 50 ml @ 100 mls/hr IVPB Q24H SCOTTY Rx#:[id number] Oral 480 100 Other: Voiding Method Toilet Toilet # Voids 3 Weight 87.997 kg GENERAL EXAM: Alert, 66-year-old white female, on 9 L of oxygen with a pulse ox of 87-90% comfortable in no apparent distress. HEAD: Normocephalic/atraumatic. EYES: Normal reaction of pupils, equal size. Conjunctiva pink, sclera white. NOSE: Clear with pink turbinates. THROAT: No erythema or exudates. NECK: No masses, no JVD, no thyroid enlargement, no adenopathy. CHEST: No chest wall deformity. Symmetrical expansion. LUNGS: Equal air entry with crackles CVS: Regular rate and rhythm, normal S1 and S2, no gallops, no murmurs, no rubs ABDOMEN: Soft, nontender. No hepatosplenomegaly, normal bowel sounds, no guarding or rigidity. EXTREMITIES: No clubbing, no edema, no cyanosis, 2+ pulses and upper and lower extremities. MUSCULOSKELETAL: Muscle strength and tone normal. SPINE: No scoliosis or deformity SKIN: No rashes CENTRAL NERVOUS SYSTEM: Alert and oriented -3. No focal deficits, tone is normal in all 4 extremities. PSYCHIATRIC: Alert and oriented -3. Appropriate affect. Intact judgment and insight. Results - Laboratory Findings CBC and BMP: 03/05/22 04:16 03/05/22 04:16 ABG ABG pH 7.37 (7.35-7.45) 03/04/22 17:20 ABG pCO2 43 mmHg (35-45) 03/04/22 17:20 ABG pO2 58 mmHg (83-108) L* 03/04/22 17:20 ABG O2 Saturation 90.5 % (94-97) L 03/04/22 17:20 PT/INR, D-dimer PT 10.3 sec (9.0-12.0) 03/03/22 23:03 INR 0.9 (<1.2) 03/03/22 23:03 Abnormal lab findings: Abnormal Labs 03/03/22 03/03/22 03/04/22 23:03 23:03 03:40 WBC 12.6 H MCHC Neutrophils # 10.8 H Lymphocytes # 0.7 L ABG pO2 ABG Total CO2 ABG O2 Saturation Sodium 132 L Chloride 97 L Carbon Dioxide 33 H Creatinine Glucose 115 H Calcium Alkaline Phosphatase 131 H Urine Protein Trace H 03/04/22 03/04/22 03/04/22 05:34 05:34 17:20 WBC 10.8 H MCHC Neutrophils # Lymphocytes # ABG pO2 58 L* ABG Total CO2 26 H ABG O2 Saturation 90.5 L Sodium Chloride 108 H Carbon Dioxide Creatinine Glucose 105 H Calcium 7.8 L Alkaline Phosphatase Urine Protein 03/05/22 03/05/22 04:16 04:16 WBC 12.0 H MCHC 29.4 L Neutrophils # Lymphocytes # ABG pO2 ABG Total CO2 ABG O2 Saturation Sodium 134 L Chloride Carbon Dioxide Creatinine 0.42 L Glucose 180 H Calcium 8.0 L Alkaline Phosphatase Urine Protein - Diagnostic Findings Chest x-ray: report reviewed, image reviewed CT scan - chest: report reviewed, image reviewed Assessment and Plan Plan: Assessment: Acute hypoxic respiratory failure related to bilateral pneumonia, possibly community-acquired Altered mental status related to pneumonia and sepsis Chronic and ongoing history of smoking History of COPD Bipolar disorder Anxiety Hypothyroidism Hypertension Plan: Continue current antibiotics Chest x-ray and CT chest reviewed showing bilateral pneumonia Legionella urine antigen was sent and pending Sensitive sputum culture Blood cultures so far showing no growth Clinically patient is improved, she is responding purposely, she is awake and alert Follow-up chest x-ray tomorrow I have personally seen and examined the patient, performed the documentation and the assessment and plan as written. Number of minutes spent on the visit: 10 I have personally seen and examined the patient and reviewed the documentation. I performed a joint evaluation with the nurse practitioner in this evaluation was done more than 30 minutes. I fully agree with the documentation above and the plan of care. This patient has extensive bilateral pneumonia. The patient extensive COPD. We'll check sputum Gram stain and culture. We'll check Legionella urine antigen. Continue Rocephin and Zithromax. Mental status is improved. We'll continue to follow and I would agree on the current treatment for now. Time with Patient: Greater than 30
--- NOTE | 2022-03-05 16:04 | P.PN ---
Subjective Progress Note Date: 03/05/22 (delayed charting seen at 1030) Principal diagnosis: altered mentation Recent 66-year-old female with a history of COPD, tobacco abuse, hypertension, and hypothyroidism who presented to the ER with complaints of altered mentation. In the ER she underwent an extensive evaluation. She was found to be febrile with a fever of 101.4 to blood pressure 99/53. Laboratory analysis showed an elevated white blood cell count of 12.6, sodium 132, COVID and flu testing were negative. Chest x-ray demonstrated moderate bilateral pneumonia. She was started on Zithromax and ceftriaxone was admitted for further monitoring. Patient became increasingly hypoxic requiring increased O2. She was started on bronchodilators and steroids. CTA chest was negative for pulmonary embolism but did show pneumonia. Pulmonary was consulted. Patient seen and examined at bedside. She is awake and alert. Feeling anxious about being off her psych medications, we discussed that they were held due to level of confusion/sedation yesterday- she disagrees with this management and states that is not what those medications do. We did agree that these medications could be safely restarted today. Her breathing is better she is feeling much better, no nausea or vomiting. No chest pain. We discussed with her subutex use, she will have bring in strips from home. General: Ill-appearing, no distress, appears at stated age Derm: warm, dry Head: atraumatic, normocephalic, symmetric Eyes: EOMI, no lid lag, anicteric sclera Mouth: no lip lesion, mucus membranes moist Cardiovascular: S1S2 reg, no murmur, positive posterior tibial pulse bilateral, Lungs: Course bs bilateral, no conversational dyspnea, no accessory muscle use Abdominal: soft, nontender to palpation, no guarding, no appreciable organomegaly Ext: no gross muscle atrophy, no edema, no contractures Neuro: CN II-XI grossly intact, no focal neuro deficits Psych: Awake, orientated, Appropriate affect Assessment/plan: Community-acquired pneumonia with sepsis Acute exacerbation of COPD Acute hypoxic respiratory failure Metabolic encephalopathy, resolved -Continued with steroids and bronchodilators -Continue with Rocephin and Zithromax -Pulmonary recs appreciated -Wean O2 as able -Safe and supportive environment - resume home mental health medications Hyponatremia, improved -Likely secondary to poor oral intake -Continue with IV fluids Hypertension -Resume Norvasc -Follow blood pressures Hypothyroidism -Synthroid Chronic pain - hold Subutex to bring in Anxiety, Bipolar disorder, depression -Resume Vistaril, does a row, Valium, and Lamictal DVT prophylaxis: Heparin Discussed with: patient, nursing Anticipated discharge: in 2-[address]: home A total of 45minutes was spent on the care of this complex patient more than 50% of the time was spent in counseling and care coordination. Objective - Vital Signs Vital signs: Vital Signs Temp 97.8 F 03/05/22 14:00 Pulse 76 03/05/22 14:00 Resp 16 03/05/22 14:00 BP 116/47 03/05/22 14:00 Pulse Ox 91 L 03/05/22 14:00 Intake & Output 03/04/22 03/05/22 03/05/22 18:59 06:59 18:59 Intake Total 480 1100 Balance 480 1100 Weight 87.997 kg 87.997 kg Intake: Intake, IV Titration 1000 Amount Sodium Chloride 0.9% 1, 900 000 ml @ 75 mls/hr IV . [id number] [facility]OT[facility] Rx#:[id number] cefTRIAXone 1 gm In 100 Sodium Chloride 0.9% 50 ml @ 100 mls/hr IVPB Q24H SCOT[facility] Rx#:[id number] Oral 480 100 Other: Voiding Method Toilet Toilet # Voids 3 - Labs CBC & Chem 7: 03/05/22 04:16 03/05/22 04:16 Labs: Abnormal Lab Results - Last 24 Hours (Table) 03/04/22 03/05/22 03/05/22 Range/Units 17:20 04:16 04:16 WBC 12.0 H (3.8-10.6) k/uL MCHC 29.4 L (31.0-37.0) g/dL ABG pO2 58 L* (83-108) mmHg ABG Total CO2 26 H (19-24) mmol/L ABG O2 Saturation 90.5 L (94-97) % Sodium 134 L (137-145) mmol/L Creatinine 0.42 L (0.52-1.04) mg/dL Glucose 180 H (74-99) mg/dL Calcium 8.0 L (8.4-10.2) mg/dL Microbiology - Last 24 Hours (Table) 03/03/22 22:50 Blood Culture - Preliminary Blood No Growth after 24 hours 03/03/22 23:05 Blood Culture - Preliminary Blood No Growth after 24 hours
[2022-03-05] MEDS: BUPRENORPHINE HCL 8 MG SUBLINGUAL SCH ×2 (18:11→21:17)
[2022-03-05] MEDS: traZODone HCL 100 MG TAB PO SCH (21:15)
[2022-03-06] MEDS: methylPREDNISolone SOD SUCCI 125 MG/2 ML VIAL IV SCH ×3 (00:33→16:25)
[2022-03-06] MEDS: LEVOTHYROXINE 50 MCG TAB PO SCH (05:46)
[2022-03-06 05:56] LABS: HCT 42.4 % (34.0-46.0); Hypochromasia Moderate; MCH 29.5 pg (25.0-35.0); MCHC 30.6 g/dL (31.0-37.0); MCV 96.1 fL (80.0-100.0); Mean Platelet Volume 7.4; Platelet Count 305 k/uL (150-450); RBC 4.41 m/uL (3.80-5.40); RDW 14.3 % (11.5-15.5); WBC 21.2 k/uL (3.8-10.6)
[2022-03-06 06:41] LABS: ALT 18 U/L (4-34); AST 30 U/L (14-36); African American GFR (CKD) >90 (>60 ml/min/1.73 sqM); Albumin 2.8 g/dL (3.5-5.0); Albumin/Globulin Ratio 0.9; Alkaline Phosphatase 140 U/L (38-126); Anion Gap 6 mmol/L; Blood Urea Nitrogen 12 mg/dL (7-17); Calcium 8.8 mg/dL (8.4-10.2); Carbon Dioxide 28 mmol/L (22-30); Chloride 106 mmol/L (98-107); Glucose 147 mg/dL (74-99); Magnesium 1.9 mg/dL (1.6-2.3); Non-African American GFR(CKD) >90 (>60 ml/min/1.73 sqM); Phosphorus 3.7 mg/dL (2.5-4.5); Potassium 4.4 mmol/L (3.5-5.1); Sodium 140 mmol/L (137-145); Total Bilirubin 0.4 mg/dL (0.2-1.3); Total Protein 5.8 g/dL (6.3-8.2)
[2022-03-06] MEDS: IPRATROPIUM-ALBUTEROL 3 ML NEB INHALATION SCH ×4 (08:01→19:43)
[2022-03-06] MEDS: ESCITALOPRAM 20 MG TAB PO SCH (09:37)
[2022-03-06] MEDS: HEPARIN SODIUM,PORCINE/PF 5,000 UNIT/0.5 ML SYRINGE SQ SCH ×2 (09:37→16:26)
[2022-03-06] MEDS: lamoTRIgine 100 MG TAB PO SCH (09:37)
[2022-03-06] MEDS: amLODIPine 10 MG TAB PO SCH (09:37)
[2022-03-06] MEDS: SODIUM CHLORIDE 0.9% 1,000 ML IV SCH ×2 (09:38→23:38)
[2022-03-06] MEDS: BUPRENORPHINE HCL 8 MG SUBLINGUAL SCH ×3 (09:38→23:37)
--- NOTE | 2022-03-06 10:42 | XR ---
EXAMINATION TYPE: XR chest 1V portable DATE OF EXAM: 03/06/2022 COMPARISON: 03/03/2022 INDICATION: Short of breath TECHNIQUE: Single frontal view of the chest is obtained. FINDINGS: The heart size is normal. The pulmonary vasculature is indistinct. Diffuse increased lung markings are present bilaterally. Correlate for pneumonia. Consider atypical p neumonia. There is a dark lucency adjacent to the trachea on the left at the level of the clavicles just above the aortic arch. Minimal pneumothorax or pneumomediastinum should be considered. Is not evident on e recent CT examination. IMPRESSION: 1. Minimal pneumomediastinum or pneumothorax above the level aortic arch may be present. Follow-up is recommended. 2. Diffuse increased lung markings are nonspecific. Correlate for atypical pneumonia. A Red level critical message alert has been initiated for Oni Ruvalcaba MD via the [employer] on 03/06/2022 10:30 AM. This message alert has been sent to Oni Ruvalcaba MD via the preferences provided by the clinician for the receipt of Radiology Critical Findings. Message ID [id number].
--- NOTE | 2022-03-06 12:01 | P.PN ---
Subjective Progress Note Date: 03/06/22 66-year-old white female patient past medical history of COPD, chronic and ongo ing heavy nicotine use, patient smokes 3-4 packs a day, hypothyroidism, bipolar disorder, panic disorder, who presented to the emergency department with her who was concerned about her altered mental status, not feeling well. Patient's was concerned that she has been sleeping a lot, seems confused when she was awake and this had been going on for 2 days prior to presentation. Patient denied any other complaints. Denied any chest pain or cough. EKG showed normal sinus rhythm with no acute ST elevations or depressions, chest x- ray showing moderate bilateral pneumonia with patchy airspace infiltrate in the left lower lobe, and right lung base as well as right middle lung field. No heart failure, there is some blunting of the right costophrenic angle consistent with small right pleural effusion. CTA chest showed bilateral areas of air bronchograms especially at the lung bases but also scattered within the perihilar location on the left, groundglass densities peripherally in the upper lobes greater on the left than on the right, small right pleural effusion. There was cardiomegaly, no pulmonary embolus was evident. COVID-19 PCR and influenza A and B were negative. Admission blood work showed a white blood cell count of 12.6, hemoglobin of 13.1, correlation profile was within normal limits, sodium is 132, potassium is 4.3, chloride is 97, CO2 is 33, BUN was 14, creatinine 0.83 lactic acid was 1.1, urinalysis showed trace protein, but no sign of infection. Blood cultures were sent, showing no growth at the 24-hour estephanie. She was started on empiric Azithromycin and Rocephin for possibility of community-acquired pneumonia, she was started on IV steroids and nebulized bronchodilators and this consult was initiated. The time of our evaluation patient is awake, and alert, is on high flow oxygen at 9 L satting 87-90%. She is responding appropriately, although seems to be a bit irritable 03/06/2022, the patient continues to BE short of breath, not much change compared to yesterday. The chest x-ray still showing multifocal pneumonia. The patient has a congested cough, unable to bring up much sputum. He remains in some antibiotic coverage. Remains on O2 and the patient is currently on 8 L O2 nasal cannula. The patient remains on accommodation Rocephin and Zithromax. The patient is also on IV Solu-Medrol and DuoNeb neb oximetry on the clock. The patient's Douglas is a 21.2 with a hemoglobin of 13, the patient's BUN is a 12 with a creatinine of 0.5 and a sodium level of 140. Legionella urine antigen was negative. The blood cultures of been negative for now. Objective - Vital Signs Vital signs: Vital Signs Temp 98.2 F 03/06/22 08:00 Pulse 74 03/06/22 11:56 Resp 18 03/06/22 08:00 BP 133/58 03/06/22 08:00 Pulse Ox 94 L 03/06/22 08:04 Intake & Output 03/05/22 03/06/22 03/06/22 18:59 06:59 18:59 Intake Total 1080 950 Balance 1080 950 Weight 87.997 kg Intake: Intake, IV Titration 950 Amount Sodium Chloride 0.9% 1, 900 000 ml @ 75 mls/hr IV . [id number] SCOTTY Rx#:[id number] cefTRIAXone 1 gm In 50 Sodium Chloride 0.9% 50 ml @ 100 mls/hr IVPB Q24H SCOTTY Rx#:[id number] Oral 1080 Other: Voiding Method Toilet # Voids 3 2 - Exam GENERAL EXAM: Alert, 66-year-old white female, on 8 L of oxygen with a pulse ox of 87-90% comfortable in no apparent distress. HEAD: Normocephalic/atraumatic. EYES: Normal reaction of pupils, equal size. Conjunctiva pink, sclera white. NOSE: Clear with pink turbinates. THROAT: No erythema or exudates. NECK: No masses, no JVD, no thyroid enlargement, no adenopathy. CHEST: No chest wall deformity. Symmetrical expansion. LUNGS: Equal air entry with crackles CVS: Regular rate and rhythm, normal S1 and S2, no gallops, no murmurs, no rubs ABDOMEN: Soft, nontender. No hepatosplenomegaly, normal bowel sounds, no guarding or rigidity. EXTREMITIES: No clubbing, no edema, no cyanosis, 2+ pulses and upper and lower extremities. MUSCULOSKELETAL: Muscle strength and tone normal. SPINE: No scoliosis or deformity SKIN: No rashes CENTRAL NERVOUS SYSTEM: Alert and oriented -3. No focal deficits, tone is normal in all 4 extremities. PSYCHIATRIC: Alert and oriented -3. Appropriate affect. Intact judgment and insight. - Labs CBC & Chem 7: 03/06/22 05:34 03/06/22 05:34 Labs: Abnormal Lab Results - Last 24 Hours (Table) 03/06/22 03/06/22 Range/Units 05:34 05:34 WBC 21.2 H (3.8-10.6) k/uL MCHC 30.6 L (31.0-37.0) g/dL Glucose 147 H (74-99) mg/dL Alkaline Phosphatase 140 H (38-126) U/L Total Protein 5.8 L (6.3-8.2) g/dL Albumin 2.8 L (3.5-5.0) g/dL Microbiology - Last 24 Hours (Table) 03/03/22 22:50 Blood Culture - Preliminary Blood No Growth after 48 hours 03/03/22 23:05 Blood Culture - Preliminary Blood No Growth after 48 hours Assessment and Plan Plan: Assessment: Acute hypoxic respiratory failure related to bilateral pneumonia, possibly community-acquired, clinically unchanged still on 8 L of O2 nasal cannula, continues to be on a mission bronchodilators and steroids and antibiotics. Altered mental status related to pneumonia and sepsis Chronic and ongoing history of smoking History of COPD Bipolar disorder Anxiety Hypothyroidism Hypertension Plan: Continue current antibiotics Chest x-ray from today still showing multifocal pneumonia Legionella urine antigen is negative Sensitive sputum culture is still pending Blood cultures so far showing no growth Clinically patient is improved, she is responding purposely, she is awake and alert Follow-up chest x-ray tomorrow
--- NOTE | 2022-03-06 15:39 | P.PN ---
Subjective Progress Note Date: 03/06/22 (delayed charting seen at 1130) Principal diagnosis: altered mentation Recent 66-year-old female with a history of COPD, tobacco abuse, hypertension, and hypothyroidism who presented to the ER with complaints of altered mentation. In the ER she underwent an extensive evaluation. She was found to be febrile with a fever of 101.4 to blood pressure 99/53. Laboratory analysis showed an elevated white blood cell count of 12.6, sodium 132, COVID and flu testing were negative. Chest x-ray demonstrated moderate bilateral pneumonia. She was started on Zithromax and ceftriaxone was admitted for further monitoring. Patient became increasingly hypoxic requiring increased O2. She was started on bronchodilators and steroids. CTA chest was negative for pulmonary embolism but did show pneumonia. Pulmonary was consulted and they agreed with current plan of care. She was found to have a small pneumo on 03/06. Patient seen and examined at bedside. Again she is feeling very sleeping today, having a hard time thinking and concentrating. Breathing is some what better than yesterday. She has been on lamictal and lexapro since dx of bipolar years ago. She is also been on trazodone for quite some time. She is unsure why she appears to be so sleepy or sedated issues been on these medications for quite some time. She states her is going to bring in her Subutex today but she has not taken strips in quite some time. We discussed that we need to adjust his medications despite been working for her for years as she currently is nonfunctional bull due to her level of the slurred speech, confusion, and lethargy. Patient is in agreement. General: Ill-appearing, no distress, appears at stated age Derm: warm, dry Head: atraumatic, normocephalic, symmetric Eyes: EOMI, no lid lag, anicteric sclera Mouth: no lip lesion, mucus membranes moist Cardiovascular: S1S2 reg, no murmur, positive posterior tibial pulse bilateral, Lungs: Course bs bilateral, no conversational dyspnea, no accessory muscle use Abdominal: soft, nontender to palpation, no guarding, no appreciable organomegaly Ext: no gross muscle atrophy, no edema, no contractures Neuro: CN II-XI grossly intact, no focal neuro deficits Psych: Lethargic, oriented 3, blunted affect. Episodes of confusion intermittently during conversation Assessment/plan: Community-acquired pneumonia with sepsis Acute exacerbation of COPD Acute hypoxic respiratory failure Metabolic encephalopathy Small pneumothorax -Continued with steroids and bronchodilators -Continue with Rocephin and Zithromax -Pulmonary recs appreciated -Maintain O2 -Safe and supportive environment - Check Lamictal level, continue with trazodone and ecitalopram. Monitor levels of alertness - repeat CXR in AM Hyponatremia, improved -Likely secondary to poor oral intake -Continue with IV fluids Hypertension - Norvasc -Follow blood pressures Hypothyroidism -Synthroid Chronic pain - hold Subutex to bring in Anxiety, Bipolar disorder, depression -Resume Vistaril, does a row, Valium, and Lamictal DVT prophylaxis: Heparin Discussed with: patient, nursing Anticipated discharge: in 2-[address]: home A total of 45minutes was spent on the care of this complex patient more than 50% of the time was spent in counseling and care coordination. Objective - Vital Signs Vital signs: Vital Signs Temp 97.9 F 03/06/22 14:00 Pulse 73 03/06/22 14:00 Resp 16 03/06/22 14:00 BP 115/57 03/06/22 14:00 Pulse Ox 92 L 03/06/22 14:00 Intake & Output 03/05/22 03/06/22 03/06/22 18:59 06:59 18:59 Intake Total 1080 950 Balance 1080 950 Weight 87.997 kg Intake: Intake, IV Titration 950 Amount Sodium Chloride 0.9% 1, 900 000 ml @ 75 mls/hr IV . [id number] SCOTTY Rx#:[id number] cefTRIAXone 1 gm In 50 Sodium Chloride 0.9% 50 ml @ 100 mls/hr IVPB Q24H SCOTTY Rx#:[id number] Oral 1080 Other: Voiding Method Toilet # Voids 3 2 - Labs CBC & Chem 7: 03/06/22 05:34 03/06/22 05:34 Labs: Abnormal Lab Results - Last 24 Hours (Table) 03/06/22 03/06/22 Range/Units 05:34 05:34 WBC 21.2 H (3.8-10.6) k/uL MCHC 30.6 L (31.0-37.0) g/dL Glucose 147 H (74-99) mg/dL Alkaline Phosphatase 140 H (38-126) U/L Total Protein 5.8 L (6.3-8.2) g/dL Albumin 2.8 L (3.5-5.0) g/dL Microbiology - Last 24 Hours (Table) 03/03/22 22:50 Blood Culture - Preliminary Blood No Growth after 48 hours 03/03/22 23:05 Blood Culture - Preliminary Blood No Growth after 48 hours
[2022-03-06] MEDS: traZODone HCL 100 MG TAB PO SCH (20:32)
[2022-03-06] MEDS: lamoTRIgine 25 MG TAB PO SCH (20:32)
[2022-03-07] MEDS: HEPARIN SODIUM,PORCINE/PF 5,000 UNIT/0.5 ML SYRINGE SQ SCH ×3 (00:09→16:55)
[2022-03-07] MEDS: AZITHROMYCIN 500 MG TAB PO SCH ×2 (00:09→22:31)
[2022-03-07] MEDS: methylPREDNISolone SOD SUCCI 125 MG/2 ML VIAL IV SCH ×3 (00:41→16:55)
[2022-03-07] MEDS: LEVOTHYROXINE 50 MCG TAB PO SCH (05:45)
[2022-03-07] MEDS: IPRATROPIUM-ALBUTEROL 3 ML NEB INHALATION SCH ×4 (08:01→21:13)
[2022-03-07 08:16] LABS: HCT 42.5 % (34.0-46.0); HGB 13.2 gm/dL (11.4-16.0); Hypochromasia Moderate; MCH 29.6 pg (25.0-35.0); MCV 95.3 fL (80.0-100.0); Mean Platelet Volume 7.7; Platelet Count 297 k/uL (150-450); RBC 4.46 m/uL (3.80-5.40); RDW 14.6 % (11.5-15.5); WBC 18.8 k/uL (3.8-10.6)
[2022-03-07 08:25] LABS: African American GFR (CKD) >90 (>60 ml/min/1.73 sqM); Anion Gap 11 mmol/L; Blood Urea Nitrogen 15 mg/dL (7-17); Calcium 8.8 mg/dL (8.4-10.2); Carbon Dioxide 21 mmol/L (22-30); Chloride 109 mmol/L (98-107); Glucose 178 mg/dL (74-99); Non-African American GFR(CKD) >90 (>60 ml/min/1.73 sqM); Sodium 141 mmol/L (137-145)
[2022-03-07 08:27] LABS: Potassium 4.1 mmol/L (3.5-5.1)
--- NOTE | 2022-03-07 08:28 | XR ---
EXAMINATION TYPE: XR chest 1V portable DATE OF EXAM: 03/07/2022 COMPARISON: 03/06/2022 INDICATION: Previous abnormal TECHNIQUE: Single frontal view of the chest is obtained. FINDINGS: The heart size is normal. The pulmonary vasculature is indistinct. Diffuse increased lung opacities are present bilaterally. Findings appear similar to comparison. The lucency adjacent to the aortic arch may have moved somewhat. Pneumomediastinum is considered less lik saleem based on positioning. Continued monitoring is recommended. Small bilateral pleural effusions are present. IMPRESSION: 1. Diffuse increased lung markings bilaterally with small bilateral pleural effusions. Continued luis e toring is recommended. 2. Some lucency adjacent to the aortic arch appears less suspicious for pneumomediastinum this time. Continued monitoring is recommended
[2022-03-07] MEDS: diazePAM 5 MG TAB PO PRN (09:16)
[2022-03-07] MEDS: amLODIPine 10 MG TAB PO SCH (09:17)
[2022-03-07] MEDS: lamoTRIgine 25 MG TAB PO SCH ×2 (09:17→20:55)
[2022-03-07] MEDS: BUPRENORPHINE HCL 8 MG SUBLINGUAL SCH ×3 (09:17→20:53)
[2022-03-07] MEDS: ESCITALOPRAM 20 MG TAB PO SCH (09:17)
[2022-03-07] MEDS: SODIUM CHLORIDE 0.9% 1,000 ML IV SCH (09:21)
--- NOTE | 2022-03-07 12:23 | P.PN ---
Subjective Progress Note Date: 03/07/22 66-year-old white female patient past medical history of COPD, chronic and ongo ing heavy nicotine use, patient smokes 3-4 packs a day, hypothyroidism, bipolar disorder, panic disorder, who presented to the emergency department with her who was concerned about her altered mental status, not feeling well. Patient's was concerned that she has been sleeping a lot, seems confused when she was awake and this had been going on for 2 days prior to presentation. Patient denied any other complaints. Denied any chest pain or cough. EKG showed normal sinus rhythm with no acute ST elevations or depressions, chest x- ray showing moderate bilateral pneumonia with patchy airspace infiltrate in the left lower lobe, and right lung base as well as right middle lung field. No heart failure, there is some blunting of the right costophrenic angle consistent with small right pleural effusion. CTA chest showed bilateral areas of air bronchograms especially at the lung bases but also scattered within the perihilar location on the left, groundglass densities peripherally in the upper lobes greater on the left than on the right, small right pleural effusion. There was cardiomegaly, no pulmonary embolus was evident. COVID-19 PCR and influenza A and B were negative. Admission blood work showed a white blood cell count of 12.6, hemoglobin of 13.1, correlation profile was within normal limits, sodium is 132, potassium is 4.3, chloride is 97, CO2 is 33, BUN was 14, creatinine 0.83 lactic acid was 1.1, urinalysis showed trace protein, but no sign of infection. Blood cultures were sent, showing no growth at the 24-hour estephanie. She was started on empiric Azithromycin and Rocephin for possibility of community-acquired pneumonia, she was started on IV steroids and nebulized bronchodilators and this consult was initiated. The time of our evaluation patient is awake, and alert, is on high flow oxygen at 9 L satting 87-90%. She is responding appropriately, although seems to be a bit irritable 03/06/2022, the patient continues to BE short of breath, not much change compared to yesterday. The chest x-ray still showing multifocal pneumonia. The patient has a congested cough, unable to bring up much sputum. He remains in some antibiotic coverage. Remains on O2 and the patient is currently on 8 L O2 nasal cannula. The patient remains on accommodation Rocephin and Zithromax. The patient is also on IV Solu-Medrol and DuoNeb neb oximetry on the clock. The patient's Douglas is a 21.2 with a hemoglobin of 13, the patient's BUN is a 12 with a creatinine of 0.5 and a sodium level of 140. Legionella urine antigen was negative. The blood cultures of been negative for now. 03/07/2022, the patient has no new complaints. She continues to BE short of breath breath and wheezing related to her underlying COPD/pneumonia. The patient remains on accommodation Rocephin and Zithromax. The patient is on IV Solu-Medrol. The blood cultures of been negative. The sputum cultures have not been obtained yet as the patient is unable to give any sputum. Urine antigen is negative. The patient's white cell count is down to 18 with a hemoglobin of 13.2, BUN is a 15 with a creatinine of 0.5 and his sodium level is at 141. No altered mentation for now. She is quite debilitated and his COPD his advanced as the patient has heavy nicotine use was used to smoke up to 3-4 packs of cigarettes on a daily basis. No signs of any CO2 narcosis. A repeat chest x- ray was done today and the patient has no evidence of any pneumothorax. There is diffuse increase in lung markings bilaterally along with small bilateral pleural effusions and the patient has questionable area of pneumomediastinum along the aortic arch without evidence of any pneumothorax. Objective - Vital Signs Vital signs: Vital Signs Temp 98.0 F 03/07/22 08:00 Pulse 80 03/07/22 08:13 Resp 18 03/07/22 08:00 BP 139/63 03/07/22 08:00 Pulse Ox 90 L 03/07/22 08:00 Intake & Output 03/06/22 03/07/22 03/07/22 18:59 06:59 18:59 Intake Total 300 Balance 300 Intake: Oral 300 Other: # Voids 3 - Exam GENERAL EXAM: Alert, 66-year-old white female, on 8 L of oxygen with a pulse ox of 87-90% comfortable in no apparent distress. HEAD: Normocephalic/atraumatic. EYES: Normal reaction of pupils, equal size. Conjunctiva pink, sclera white. NOSE: Clear with pink turbinates. THROAT: No erythema or exudates. NECK: No masses, no JVD, no thyroid enlargement, no adenopathy. CHEST: No chest wall deformity. Symmetrical expansion. LUNGS: Equal air entry with crackles CVS: Regular rate and rhythm, normal S1 and S2, no gallops, no murmurs, no rubs ABDOMEN: Soft, nontender. No hepatosplenomegaly, normal bowel sounds, no guarding or rigidity. EXTREMITIES: No clubbing, no edema, no cyanosis, 2+ pulses and upper and lower extremities. MUSCULOSKELETAL: Muscle strength and tone normal. SPINE: No scoliosis or deformity SKIN: No rashes CENTRAL NERVOUS SYSTEM: Alert and oriented -3. No focal deficits, tone is normal in all 4 extremities. PSYCHIATRIC: Alert and oriented -3. Appropriate affect. Intact judgment and insight. - Labs CBC & Chem 7: 03/07/22 07:45 03/07/22 07:45 Labs: Abnormal Lab Results - Last 24 Hours (Table) 03/07/22 03/07/22 Range/Units 07:45 07:45 WBC 18.8 H (3.8-10.6) k/uL Chloride 109 H (98-107) mmol/L Carbon Dioxide 21 L (22-30) mmol/L Glucose 178 H (74-99) mg/dL Microbiology - Last 24 Hours (Table) 03/03/22 23:05 Blood Culture - Preliminary Blood No Growth after 72 hours 03/03/22 22:50 Blood Culture - Preliminary Blood No Growth after 72 hours Assessment and Plan Plan: Assessment: Acute hypoxic respiratory failure related to bilateral pneumonia, possibly community-acquired, clinically unchanged still on 8 L of O2 nasal cannula, and the patient's condition is remaining unchanged. The patient remained on same antibiotic coverage. Chest x-ray findings are essentially stable. Cultures are all negative. Patient continues to be on a combination of bronchodilators and steroids and antibiotics. Altered mental status related to pneumonia and sepsis Chronic and ongoing history of smoking History of COPD Bipolar disorder Anxiety Hypothyroidism Hypertension Plan: Continue current antibiotics Chest x-ray from today still showing multifocal pneumonia, no major interval worsening or improvement on today's chest x-ray Legionella urine antigen is negative Sensitive sputum culture is still pending, try to collect a sputum sample if possible to direct antibiotic therapy Blood cultures so far showing no growth Clinically stable compared to yesterday Follow-up chest x-ray tomorrow
--- NOTE | 2022-03-07 18:12 | P.PN ---
Subjective Progress Note Date: 03/07/22 (delayed charting seen at 1530) Principal diagnosis: altered mentation Recent 66-year-old female with a history of COPD, tobacco abuse, hypertension, and hypothyroidism who presented to the ER with complaints of altered mentation. In the ER she underwent an extensive evaluation. She was found to be febrile with a fever of 101.4 to blood pressure 99/53. Laboratory analysis showed an elevated white blood cell count of 12.6, sodium 132, COVID and flu testing were negative. Chest x-ray demonstrated moderate bilateral pneumonia. She was started on Zithromax and ceftriaxone was admitted for further monitoring. Patient became increasingly hypoxic requiring increased O2. She was started on bronchodilators and steroids. CTA chest was negative for pulmonary embolism but did show pneumonia. Pulmonary was consulted and they agreed with current plan of care. She was found to have a small pneumo on 03/06. Patient seen and examined at bedside. She is sleepy today and slightly confused. Still short of breath. No nausea, no vomiting, no diarrhea. General: Ill-appearing, no distress, appears at stated age Derm: warm, dry Head: atraumatic, normocephalic, symmetric Eyes: EOMI, no lid lag, anicteric sclera Mouth: no lip lesion, mucus membranes moist Cardiovascular: S1S2 reg, no murmur, positive posterior tibial pulse bilateral, Lungs: Course bs bilateral, no conversational dyspnea, no accessory muscle use Abdominal: soft, nontender to palpation, no guarding, no appreciable organomegaly Ext: no gross muscle atrophy, no edema, no contractures Neuro: CN II-XI grossly intact, no focal neuro deficits Psych: more awake, oriented 3, blunted affect. Episodes of confusion intermittently during conversation Assessment/plan: Community-acquired pneumonia with sepsis Acute exacerbation of COPD Acute hypoxic respiratory failure Metabolic encephalopathy Small pneumothorax -Continued with steroids and bronchodilators -Continue with Rocephin and Zithromax -Pulmonary recs appreciated -Maintain O2 -Safe and supportive environment - Lamictal level pending, lamictal at 1/2 home dose, continue with trazodone and ecitalopram. Monitor levels of alertness, better than yesterday but still lethargic - repeat CXR in AM Hypertension - Norvasc -Follow blood pressures Hypothyroidism -Synthroid Chronic pain - Subutex to bring in Anxiety, Bipolar disorder, depression -Vistaril, escitalopram, Valium, and Lamictal Hyponatremia, improved Daughter at bedside all questions answered DVT prophylaxis: Heparin Discussed with: patient, nursing, daughter Anticipated discharge: in 2-[address]: home A total of 45minutes was spent on the care of this complex patient more than 50% of the time was spent in counseling and care coordination. Active Medications Generic Name Dose Route Start Last Admin Trade Name Freq PRN Reason Stop Dose Admin Albuterol Sulfate 2.5 mg 03/04/22 14:13 03/07/22 03:41 Albuterol Nebulized 2.5 Mg/3 Ml INHALATION 2.5 mg RT-QID PRN Administration Shortness Of Breath Or Wheezing Albuterol/Ipratropium 3 ml 03/04/22 16:00 03/07/22 16:02 Ipratropium-Albuterol 3 Ml Neb INHALATION 3 ml RT-QID SCOTTY Administration Amlodipine Besylate 10 mg 03/05/22 09:00 03/07/22 09:17 Amlodipine 10 Mg Tab PO 10 mg DAILY SCOTTY Administration Azithromycin 500 mg 03/04/22 23:00 03/07/22 00:09 Azithromycin 500 Mg Tab PO 03/07/22 23:01 500 mg Q24H SCOTTY Administration Protocol Diazepam 5 mg 03/05/22 10:55 03/07/22 09:16 Diazepam 5 Mg Tab PO 5 mg DAILY PRN Administration Anxiety Escitalopram Oxalate 20 mg 03/05/22 11:00 03/07/22 09:17 Escitalopram 20 Mg Tab PO 20 mg DAILY SCOTTY Administration Heparin Sodium (Porcine) 5,000 unit 03/04/22 08:00 03/07/22 16:55 Heparin Sodium,Porcine/Pf 5,000 Unit/0.5 Ml Syringe SQ 5,000 unit Q8HR SCOTTY Administration Hydroxyzine Pamoate 25 mg 03/05/22 10:55 Hydroxyzine Pamoate 25 Mg Cap PO BID PRN Anxiety Sodium Chloride 1,000 mls @ 75 mls/hr 03/04/22 02:45 03/07/22 09:21 Saline 0.9% IV 75 mls/hr .[id number] SCOTTY Administration Ceftriaxone Sodium 1 gm/ 50 mls @ 100 mls/hr 03/05/22 01:00 03/07/22 00:09 Sodium Chloride IVPB 100 mls/hr Q24H SCOTTY Administration Protocol Lamotrigine 75 mg 03/06/22 21:00 03/07/22 09:17 Lamotrigine 25 Mg Tab PO 75 mg BID SCOTTY Administration Levothyroxine Sodium 50 mcg 03/05/22 06:30 03/07/22 05:45 Levothyroxine 50 Mcg Tab PO 50 mcg DAILY@0630 SCOTTY Administration Methylprednisolone Sodium Succinate 60 mg 03/04/22 16:00 03/07/22 16:55 Methylprednisolone Sod Succi 125 Mg/2 Ml Vial IV 60 mg Q8HR SCOTTY Administration Naloxone HCl 0.2 mg 03/04/22 03:59 Naloxone 0.4 Mg/Ml 1 Ml Vial IV Q2M PRN Opioid Reversal Patient's Own ( 8 mg 03/05/22 16:00 03/07/22 09:17 Buprenorphine Hcl [ SUBLINGUAL Not Given Subutex] 8 Mg Tablet TID [facility] ) Trazodone HCl 100 mg 03/05/22 21:00 03/06/22 20:32 Trazodone Hcl 100 Mg Tab PO 100 mg HS SCOTTY Administration Objective - Vital Signs Vital signs: Vital Signs Temp 98.3 F 03/07/22 14:00 Pulse 91 03/07/22 16:12 Resp 16 03/07/22 14:00 BP 130/67 03/07/22 14:00 Pulse Ox 88 L 03/07/22 14:00 Intake & Output 03/06/22 03/07/22 03/07/22 18:59 06:59 18:59 Intake Total 300 592 Balance 300 592 Intake: Oral 300 592 Other: # Voids 3 3 - Labs CBC & Chem 7: 03/07/22 07:45 03/07/22 07:45 Labs: Abnormal Lab Results - Last 24 Hours (Table) 03/07/22 03/07/22 Range/Units 07:45 07:45 WBC 18.8 H (3.8-10.6) k/uL Chloride 109 H (98-107) mmol/L Carbon Dioxide 21 L (22-30) mmol/L Glucose 178 H (74-99) mg/dL Microbiology - Last 24 Hours (Table) 03/03/22 23:05 Blood Culture - Preliminary Blood No Growth after 72 hours 03/03/22 22:50 Blood Culture - Preliminary Blood No Growth after 72 hours
[2022-03-07] MEDS: traZODone HCL 100 MG TAB PO SCH (20:55)
[2022-03-08] MEDS: methylPREDNISolone SOD SUCCI 125 MG/2 ML VIAL IV SCH ×3 (00:43→15:35)
[2022-03-08] MEDS: HEPARIN SODIUM,PORCINE/PF 5,000 UNIT/0.5 ML SYRINGE SQ SCH ×4 (00:44→23:40)
[2022-03-08] MEDS: SODIUM CHLORIDE 0.9% 1,000 ML IV SCH ×2 (00:52→12:46)
[2022-03-08] MEDS: LEVOTHYROXINE 50 MCG TAB PO SCH (06:17)
[2022-03-08] MEDS: BUPRENORPHINE HCL 8 MG SUBLINGUAL SCH ×3 (07:32→22:19)
--- NOTE | 2022-03-08 07:42 | XR ---
EXAMINATION TYPE: XR chest 2V DATE OF EXAM: 03/08/2022 COMPARISON: 03/07/2022 TECHNIQUE: PA and lateral views submitted. HISTORY: Cough FINDINGS: Diffuse hyperinflation with small left pleural effusion and diffuse bilateral airspace disease. Heart size stable. No sizable pneumothorax. Linear area of lucency seen in the right paratracheal region. IMPRESSION: 1. Diffuse bilateral airspace disease and pleural effusion correlate for CHF versus diffuse pneumonia . Correlate for COPD. 2. There remains a small amount of air along the upper mediastinum which could potentially represent a small degree of pneumomediastinum no definite sizable pneumothorax.
[2022-03-08] MEDS: amLODIPine 10 MG TAB PO SCH (07:44)
[2022-03-08] MEDS: ESCITALOPRAM 20 MG TAB PO SCH (07:44)
[2022-03-08] MEDS: lamoTRIgine 25 MG TAB PO SCH ×2 (07:45→21:16)
[2022-03-08] MEDS: IPRATROPIUM-ALBUTEROL 3 ML NEB INHALATION SCH ×4 (08:59→20:23)
[2022-03-08 09:08] LABS: African American GFR (CKD) >90 (>60 ml/min/1.73 sqM); Anion Gap 7 mmol/L; Blood Urea Nitrogen 14 mg/dL (7-17); Calcium 8.8 mg/dL (8.4-10.2); Carbon Dioxide 31 mmol/L (22-30); Chloride 104 mmol/L (98-107); Glucose 145 mg/dL (74-99); Non-African American GFR(CKD) >90 (>60 ml/min/1.73 sqM); Sodium 142 mmol/L (137-145)
[2022-03-08 09:09] LABS: HCT 45.3 % (34.0-46.0); HGB 14.3 gm/dL (11.4-16.0); Hypochromasia Slight; MCH 29.7 pg (25.0-35.0); MCHC 31.4 g/dL (31.0-37.0); MCV 94.4 fL (80.0-100.0); Mean Platelet Volume 8.7; Platelet Count 361 k/uL (150-450); RDW 14.7 % (11.5-15.5); WBC 16.1 k/uL (3.8-10.6)
[2022-03-08] MEDS: PIPERACILLIN-TAZOBACTAM 3.375 GM in SODIUM CHLORIDE 0.9% 100 ML IVPB SCH ×2 (12:37→19:35)
--- NOTE | 2022-03-08 14:09 | P.PN ---
Subjective Progress Note Date: 03/08/22 Principal diagnosis: Shortness of breath, bilateral pneumonia 66-year-old white female patient past medical history of COPD, chronic and ongoing heavy nicotine use, patient smokes 3-4 packs a day, hypothyroidism, bipolar disorder, panic disorder, who presented to the emergency department with her who was concerned about her altered mental status, not feeling well. Patient's was concerned that she has been sleeping a lot, seems confused when she was awake and this had been going on for 2 days prior to presentation. Patient denied any other complaints. Denied any chest pain or cough. EKG showed normal sinus rhythm with no acute ST elevations or depressi ons, chest x-ray showing moderate bilateral pneumonia with patchy airspace infiltrate in the left lower lobe, and right lung base as well as right middle lung field. No heart failure, there is some blunting of the right costophrenic angle consistent with small right pleural effusion. CTA chest showed bilateral areas of air bronchograms especially at the lung bases but also scattered within the perihilar location on the left, groundglass densities peripherally in the upper lobes greater on the left than on the right, small right pleural effusion. There was cardiomegaly, no pulmonary embolus was evident. COVID-19 PCR and influenza A and B were negative. Admission blood work showed a white blood cell count of 12.6, hemoglobin of 13.1, correlation profile was within normal limits, sodium is 132, potassium is 4.3, chloride is 97, CO2 is 33, BUN was 14, creatinine 0.83 lactic acid was 1.1, urinalysis showed trace protein, but no sign of infection. Blood cultures were sent, showing no growth at the 24-hour estephanie. She was started on empiric Azithromycin and Rocephin for possibility of community-acquired pneumonia, she was started on IV steroids and nebulized bronchodilators and this consult was initiated. The time of our evaluation patient is awake, and alert, is on high flow oxygen at 9 L satting 87-90%. She is responding appropriately, although seems to be a bit irritable 03/06/2022, the patient continues to BE short of breath, not much change compared to yesterday. The chest x-ray still showing multifocal pneumonia. The patient has a congested cough, unable to bring up much sputum. He remains in some antibiotic coverage. Remains on O2 and the patient is currently on 8 L O2 nasal cannula. The patient remains on accommodation Rocephin and Zithromax. The patient is also on IV Solu-Medrol and DuoNeb neb oximetry on the clock. The patient's Douglas is a 21.2 with a hemoglobin of 13, the patient's BUN is a 12 with a creatinine of 0.5 and a sodium level of 140. Legionella urine antigen was negative. The blood cultures of been negative for now. 03/07/2022, the patient has no new complaints. She continues to BE short of breath breath and wheezing related to her underlying COPD/pneumonia. The patient remains on accommodation Rocephin and Zithromax. The patient is on IV Solu-Medrol. The blood cultures of been negative. The sputum cultures have not been obtained yet as the patient is unable to give any sputum. Urine antigen is negative. The patient's white cell count is down to 18 with a hemoglobin of 13.2, BUN is a 15 with a creatinine of 0.5 and his sodium level is at 141. No altered mentation for now. She is quite debilitated and his COPD his advanced as the patient has heavy nicotine use was used to smoke up to 3-4 packs of cigarettes on a daily basis. No signs of any CO2 narcosis. A repeat chest x- ray was done today and the patient has no evidence of any pneumothorax. There is diffuse increase in lung markings bilaterally along with small bilateral pleural effusions and the patient has questionable area of pneumomediastinum a long the aortic arch without evidence of any pneumothorax. On 03/08/2022 patient seen in follow-up on medical surgical floor. She is resting comfortably in bed, does not appear to be in any acute distress, but still requiring high flow oxygen at 8 L, and her pulse ox is 91%, she is afebrile today, blood pressure stable. Mentation is appropriate, she is responding to verbal questioning appropriately, she is oriented 3. She denies any chest discomfort, no hemoptysis, however she states she just feels very tired all the time, she states her breathing is the same not any worse however not particularly better either. She does have a significantly congested cough, he states that time she is able to bring up small amounts of sputum. She tested negative for COVID-19, influenza A and B, and Legionella urine antigen was also negative. She is on Rocephin and azithromycin for antibiotic coverage. Her white count on today's labs is improving and is down to 16.1, hemoglobin is 14.3, CO2 is 31 on her BMP, the rest of electrolytes and renal profile were within normal limits. Chest x-ray today showing diffuse bilateral airspace disease and pleural effusion and small amount of air along the upper mediastinum which could potentially represent a small degree of pneumomediastinum. Patient remains on IV steroids and nebulized bronchodilators, she is on GI and DVT prophylaxis. She is on IV hydration with point normal seen at a rate of 75 ML per hour. Objective - Vital Signs Vital signs: Vital Signs Temp 98.4 F 03/08/22 13:32 Pulse 77 03/08/22 13:32 Resp 20 03/08/22 13:32 BP 127/66 03/08/22 13:32 Pulse Ox 91 L 03/08/22 13:32 Intake & Output 03/07/22 03/08/22 03/08/22 18:59 06:59 18:59 Intake Total 592 1000 Balance 592 1000 Intake: Intake, IV Titration 1000 Amount Sodium Chloride 0.9% 1, 900 000 ml @ 75 mls/hr IV . [id number] [facility] Rx#:[id number] cefTRIAXone 1 gm In 100 Sodium Chloride 0.9% 50 ml @ 100 mls/hr IVPB Q24H [facility] Rx#:[id number] Oral 592 Other: Voiding Method Toilet # Voids 3 3 # Bowel Movements 1 - Exam GENERAL EXAM: Alert, 66-year-old white female, on 8 L of oxygen with a pulse ox of 87-90% comfortable in no apparent distress. HEAD: Normocephalic/atraumatic. EYES: Normal reaction of pupils, equal size. Conjunctiva pink, sclera white. NOSE: Clear with pink turbinates. THROAT: No erythema or exudates. NECK: No masses, no JVD, no thyroid enlargement, no adenopathy. CHEST: No chest wall deformity. Symmetrical expansion. LUNGS: Equal air entry with crackles CVS: Regular rate and rhythm, normal S1 and S2, no gallops, no murmurs, no rubs ABDOMEN: Soft, nontender. No hepatosplenomegaly, normal bowel sounds, no guarding or rigidity. EXTREMITIES: No clubbing, no edema, no cyanosis, 2+ pulses and upper and lower extremities. MUSCULOSKELETAL: Muscle strength and tone normal. SPINE: No scoliosis or deformity SKIN: No rashes CENTRAL NERVOUS SYSTEM: Alert and oriented -3. No focal deficits, tone is normal in all 4 extremities. PSYCHIATRIC: Alert and oriented -3. Appropriate affect. Intact judgment and insight. - Labs CBC & Chem 7: 03/08/22 08:25 03/08/22 08:25 Labs: Abnormal Lab Results - Last 24 Hours (Table) 03/08/22 03/08/22 Range/Units 08:25 08:25 WBC 16.1 H (3.8-10.6) k/uL Carbon Dioxide 31 H (22-30) mmol/L Glucose 145 H (74-99) mg/dL Microbiology - Last 24 Hours (Table) 03/03/22 23:05 Blood Culture - Preliminary Blood No Growth after 96 hours 03/03/22 22:50 Blood Culture - Preliminary Blood No Growth after 96 hours Assessment and Plan Plan: Assessment: Acute hypoxic respiratory failure related to bilateral pneumonia, possibly community-acquired, or potentially aspiration related, and patient remains on high flow oxygen at 8 L. Altered mental status related to pneumonia and sepsis Chronic and ongoing history of smoking History of COPD Bipolar disorder Anxiety Hypothyroidism Hypertension Plan: Patient seen and examined with Dr. Bowling We'll switch antibiotic coverage to Zosyn for possibility of aspiration related pneumonia We will obtain speech evaluation Continue IV steroids and nebulized bronchodilators We'll try to obtain a sputum specimen Clinically patient denies any worsening dyspnea, We'll hold off on bronchoscopy as the patient is requiring high flow oxygen, generally she is weak, and fairly stable GI and DVT prophylaxis We'll continue to follow I have personally seen and examined the patient, performed the documentation and the assessment and plan as written. Number of minutes spent on the visit: 10 Time with Patient: Less than 30
--- NOTE | 2022-03-08 14:45 | P.CN ---
Psychiatric Consult - . Consult date: 03/08/22 Consult:: 03/08/22 14:44 IDENTIFYING DATA: This patient is a 66-year-old female significant history of bipolar disorder, opiate use disorder, and tobacco abuse who presented to the hospital with a chief complaint of confusion HISTORY OF PRESENT ILLNESS: The patient presented to the hospital on 03/04/22, brought into the hospital for confusion by her . The patient has had a prolonged hospitalization and is currently being managed for acute hypoxic respiratory failure secondary to bilateral pneumonia. Psychiatry has been consulted for bipolar medication management. Currently, the patient's home medications include trazodone 100 mg at bedtime, Lamictal 150 mg twice daily, Vistaril 25 mg twice daily when necessary, Subutex 8 mg 3 times a day, oxaprozin 20 mg daily, and Valium 5 mg daily when necessary. The patient has been noted by the primary team to be quite sedated and on her full medications. Attempts to taper Lamictal were met with the patient being very tearful and dysphoric. Upon evaluation by this provider, the patient is currently denying any significant issues regarding any psychiatric pathology at this time. She is currently denying any suicidal or homicidal ideation, intention, and/or plan. She denies any depressive symptoms. She reports no significant concerns for any manic or hypomanic episodes at this time. Significant history of bipolar disorder and has had episodes of depression and sintia in the past. She reports that he has been many years since she had any symptoms. In regards to her crying episodes, the patient reports that she was tearful because she is f rustrated with this hospitalization, and finding out that she has more and more help concerns and problems. She also expresses that she is extremely stressed out with the fact that she has to. Her whole house with her . She reports that she and her are 66 and that this is no easy task. She expresses that this is not manic symptoms either. She reports that they're planning to paint the house for quite some time. The patient does report a history of suicide attempts in the past. She states her last attempt was approximately 14 years ago. She reported that back then she attempted to cut herself with a knife. She reports a history of prior inpatient psychiatric treatment for suicidal thoughts but states that it has been at least 6 years. She is currently open with an outpatient program through [facility]. In regards to substance use history, the patient does admit to 2 packs per day of cigarette use. She also reports that she previously had issues with alcohol and opiates however has remained sober from both for years and was started on Subutex approximate 5 months ago. PAST PSYCHIATRIC HISTORY: Patient has a history of bipolar disorder and opiate use disorder. Her medications are as listed above. She reports prior psychiatric hospitalizations with the last time being 6 years ago. She is currently open with [facility] and does telepsychiatry. She reports prior attempts at suicide approximate 14 years ago by cutting her wrist. PAST MEDICAL HISTORY: Past Medical History: COPD, Hypertension, Musculoskeletal Disorder, Thyroid Disorder Additional Past Medical History / Comment(s): CHRONIC BACK PAIN, OCCASIONAL DIZZINESS. History of Any Multi-Drug Resistant Organisms: None Reported Past Surgical History: Section, Orthopedic Surgery, Tonsillectomy Additional Past Surgical History / Comment(s): left shoulder, RIGHT HIP SURGERY Past Anesthesia/Blood Transfusion Reactions: No Reported Reaction Past Psychological History: Anxiety, Bipolar, Depression, Panic Disorder Smoking Status: Current every day smoker Past Alcohol Use History: None Reported Past Drug Use History: None Reported ALLERGIES: As per HPI CHEMICAL DEPENDENCY HISTORY: as per HPI. FAMILY PSYCHIATRIC/SUBSTANCE USE HISTORY: She reports that her father is epileptic however is unable to recall any other mental illnesses or concerns SOCIAL HISTORY: Patient was born and raised in [place], [place]. She is currently . She is retired. She lives with her . MENTAL STATUS EXAM: General Appearance: Patient appears to be stated age is alert, pleasant, and cooperative. Patient appears to have fair hygiene and grooming wearing hospital gown with fair eye contact. She has multiple tattoos. Behavior: Patient is calmly lying in bed without any agitated behavior. Patient last and smiles appropriately. Speech: Patient's speech is fluent and nonpressured. Mood/Affect: Patient reports their mood is "a little sad", affect is congruent and appears to be euthymic. Suicidality/Homicidality: Patient denies any suicidal or homicidal ideation, intention, and/or plan. Perceptions: Patient denies any visual hallucinations and denies any auditory hallucinations Though content/process: There is no evidence of any delusional thought content and thought process is linear and goal-directed. Memory and concentration: AOX3, grossly intact for the purposes of this session. Can spell "WORLD" backwards Judgment and insight: Good IMPRESSIONS: Bilateral pneumonia Adjustment disorder, with depressive symptoms Bipolar disorder, by history Opiate use disorder Nicotine dependence PLAN: -At this time patient DOES NOT meet criteria for inpatient psychiatric admission. The patient is currently not endorsing any imminent risk of suicide or homicide. She remains future and goal oriented. -Delirium precautions recommended with patient including - avoiding use of narcotics and [employer] sedatives, limit anticholinergic medications when possible, frequent re-orientation, minimize use of restraints, open window shades during the day and close them at night -Would recommend the following medication changes/additions: Agree with the decrease in Lamictal to 75 mg twice daily. Continue current psychiatric regimen. The patient is in agreement that she might have been on too much medication that was contribute into her change in mentation and sedation. -Psychiatry will sign off at this point, please contact with any questions. 03/08/22 14:45
--- NOTE | 2022-03-08 20:26 | P.PN ---
Subjective Progress Note Date: 03/08/22 (delayed charting seen at 1015) Principal diagnosis: altered mentation Recent 66-year-old female with a history of COPD, tobacco abuse, hypertension, and hypothyroidism who presented to the ER with complaints of altered mentation. In the ER she underwent an extensive evaluation. She was found to be febrile with a fever of 101.4 to blood pressure 99/53. Laboratory analysis showed an elevated white blood cell count of 12.6, sodium 132, COVID and flu testing were negative. Chest x-ray demonstrated moderate bilateral pneumonia. She was started on Zithromax and ceftriaxone was admitted for further monitoring. Patient became increasingly hypoxic requiring increased O2. She was started on bronchodilators and steroids. CTA chest was negative for pulmonary embolism but did show pneumonia. Pulmonary was consulted and they agreed with current plan of care. She was found to have a small pneumo on 03/06. Patient seen and examined at bedside. She has more awake and alert today. However she continues to have some intermittent confusion. Initially when I walked in the room she cannot remember why she is here and she is worried about receiving blood products. I again explained to her that she was brought in lethargic has a pneumonia and a slight lung collapse. She does feel better but continues to cry and be that. General: Ill-appearing, no distress, appears at stated age Derm: warm, dry Head: atraumatic, normocephalic, symmetric Eyes: EOMI, no lid lag, anicteric sclera Mouth: no lip lesion, mucus membranes moist Cardiovascular: S1S2 reg, no murmur, positive posterior tibial pulse bilateral, Lungs: faint wheeze bilateral, no conversational dyspnea, no accessory muscle use Abdominal: soft, nontender to palpation, no guarding, no appreciable organomega ly Ext: no gross muscle atrophy, no edema, no contractures Neuro: CN II-XI grossly intact, no focal neuro deficits Psych: more awake, oriented 3, blunted affect. Episodes of confusion intermittently during conversation continue Assessment/plan: Community-acquired pneumonia with sepsis Acute exacerbation of COPD Acute hypoxic respiratory failure Metabolic encephalopathy Small pneumothorax -Continued with steroids and bronchodilators -pulmonary has switched the patient from rocpehin to zosyn -Pulmonary recs appreciated -Maintain O2 -Safe and supportive environment - Lamictal level normal lamictal - repeat CXR in AM Hypertension - Norvasc -Follow blood pressures Hypothyroidism -Synthroid Chronic pain - Subutex to bring in Anxiety, Bipolar disorder, depression -Vistaril, escitalopram, Valium, and Lamictal - psych consult Hyponatremia, improved DVT prophylaxis: Heparin Discussed with: patient, nursing Anticipated discharge: in 2-[address]: home A total of 35 minutes was spent on the care of this complex patient more than 50% of the time was spent in counseling and care coordination. Active Medications Albuterol Sulfate (Albuterol Nebulized 2.5 Mg/3 Ml) 2.5 mg INHALATION RT-QID PRN PRN Reason: Shortness Of Breath Or Wheezing Last Admin: 03/07/22 03:41 Dose: 2.5 mg Documented by: Albuterol/Ipratropium (Ipratropium-Albuterol 3 Ml Neb) 3 ml INHALATION RT-QID [facility] Last Admin: 03/08/22 16:45 Dose: 3 ml Documented by: Amlodipine Besylate (Amlodipine 10 Mg Tab) 10 mg PO DAILY [facility] Last Admin: 03/08/22 07:44 Dose: 10 mg Documented by: Diazepam (Diazepam 5 Mg Tab) 5 mg PO DAILY PRN PRN Reason: Anxiety Last Admin: 03/07/22 09:16 Dose: 5 mg Documented by: Escitalopram Oxalate (Escitalopram 20 Mg Tab) 20 mg PO DAILY [facility] Last Admin: 03/08/22 07:44 Dose: 20 mg Documented by: Heparin Sodium (Porcine) (Heparin Sodium,Porcine/Pf 5,000 Unit/0.5 Ml Syringe) 5,000 unit SQ Q8HR [facility] Last Admin: 03/08/22 15:36 Dose: 5,000 unit Documented by: Hydroxyzine Pamoate (Hydroxyzine Pamoate 25 Mg Cap) 25 mg PO BID PRN PRN Reason: Anxiety Last Admin: 03/08/22 09:41 Dose: 25 mg Documented by: Sodium Chloride (Saline 0.9%) 1,000 mls @ 75 mls/hr IV .[id number] [facility] Last Admin: 03/08/22 12:46 Dose: 75 mls/hr Documented by: Piperacillin Sod/Tazobactam (Sod 3.375 gm/ Sodium Chloride) 100 mls @ 25 mls/hr IVPB Q8H [facility]; Protocol Last Admin: 03/08/22 19:35 Dose: 25 mls/hr Documented by: Lamotrigine (Lamotrigine 25 Mg Tab) 75 mg PO BID [facility] Last Admin: 03/08/22 07:45 Dose: 75 mg Documented by: Levothyroxine Sodium (Levothyroxine 50 Mcg Tab) 50 mcg PO DAILY@0630 [facility] Last Admin: 03/08/22 06:17 Dose: 50 mcg Documented by: Methylprednisolone Sodium Succinate (Methylprednisolone Sod Succi 40 Mg/Ml 1 Ml Vial) 40 mg IV Q12HR [facility] Naloxone HCl (Naloxone 0.4 Mg/Ml 1 Ml Vial) 0.2 mg IV Q2M PRN PRN Reason: Opioid Reversal Patient's Own ( Buprenorphine Hcl [ Subutex] 8 Mg Tablet ) 8 mg SUBLINGUAL TID [facility] Last Admin: 03/08/22 12:47 Dose: Not Given Documented by: Trazodone HCl (Trazodone Hcl 100 Mg Tab) 100 mg PO [facility] Last Admin: 03/07/22 20:55 Dose: 100 mg Documented by: Objective - Vital Signs Vital signs: Vital Signs Temp 98.4 F 03/08/22 13:32 Pulse 75 03/08/22 16:55 Resp 20 03/08/22 13:32 BP 127/66 03/08/22 13:32 Pulse Ox 94 L 03/08/22 16:46 Intake & Output 03/08/22 03/08/22 03/09/22 06:59 18:59 06:59 Intake Total 1000 Output Total 300 Balance 1000 -300 Intake: Intake, IV Titration 1000 Amount Sodium Chloride 0.9% 1, 900 000 ml @ 75 mls/hr IV . [id number] [facility] Rx#:[id number] cefTRIAXone 1 gm In 100 Sodium Chloride 0.9% 50 ml @ 100 mls/hr IVPB Q24H [facility] Rx#:[id number] Output: Urine 300 Other: Voiding Method Toilet # Voids 3 2 # Bowel Movements 1 - Labs CBC & Chem 7: 03/08/22 08:25 03/08/22 08:25 Labs: Abnormal Lab Results - Last 24 Hours (Table) 03/08/22 03/08/22 Range/Units 08:25 08:25 WBC 16.1 H (3.8-10.6) k/uL Carbon Dioxide 31 H (22-30) mmol/L Glucose 145 H (74-99) mg/dL Microbiology - Last 24 Hours (Table) 03/03/22 23:05 Blood Culture - Preliminary Blood No Growth after 96 hours 03/03/22 22:50 Blood Culture - Preliminary Blood No Growth after 96 hours
[2022-03-08] MEDS ORDERED: diazePAM 2 MG TAB PO PRN (20:27)
[2022-03-08] MEDS: traZODone HCL 100 MG TAB PO SCH ×2 (21:15→21:16)
[2022-03-08] MEDS: methylPREDNISolone SOD SUCCI 40 MG/ML 1 ML VIAL IV SCH (22:18)
[2022-03-09] MEDS: PIPERACILLIN-TAZOBACTAM 3.375 GM in SODIUM CHLORIDE 0.9% 100 ML IVPB SCH ×3 (02:54→20:41)
[2022-03-09] MEDS: LEVOTHYROXINE 50 MCG TAB PO SCH (05:20)
[2022-03-09] MEDS: ESCITALOPRAM 20 MG TAB PO SCH (08:05)
[2022-03-09] MEDS: amLODIPine 10 MG TAB PO SCH (08:05)
[2022-03-09] MEDS: methylPREDNISolone SOD SUCCI 40 MG/ML 1 ML VIAL IV SCH ×2 (08:05→20:40)
[2022-03-09] MEDS: lamoTRIgine 25 MG TAB PO SCH ×2 (08:06→20:42)
[2022-03-09] MEDS: HEPARIN SODIUM,PORCINE/PF 5,000 UNIT/0.5 ML SYRINGE SQ SCH ×3 (08:06→23:43)
[2022-03-09] MEDS: BUPRENORPHINE HCL 8 MG SUBLINGUAL SCH ×3 (08:07→20:39)
[2022-03-09] MEDS: IPRATROPIUM-ALBUTEROL 3 ML NEB INHALATION SCH ×4 (08:30→20:49)
--- NOTE | 2022-03-09 12:19 | P.PN ---
Subjective Progress Note Date: 03/09/22 Principal diagnosis: Shortness of breath, bilateral pneumonia 66-year-old white female patient past medical history of COPD, chronic and ongoing heavy nicotine use, patient smokes 3-4 packs a day, hypothyroidism, bipolar disorder, panic disorder, who presented to the emergency department with her who was concerned about her altered mental status, not feeling well. Patient's was concerned that she has been sleeping a lot, seems confused when she was awake and this had been going on for 2 days prior to presentation. Patient denied any other complaints. Denied any chest pain or cough. EKG showed normal sinus rhythm with no acute ST elevations or depressi ons, chest x-ray showing moderate bilateral pneumonia with patchy airspace infiltrate in the left lower lobe, and right lung base as well as right middle lung field. No heart failure, there is some blunting of the right costophrenic angle consistent with small right pleural effusion. CTA chest showed bilateral areas of air bronchograms especially at the lung bases but also scattered within the perihilar location on the left, groundglass densities peripherally in the upper lobes greater on the left than on the right, small right pleural effusion. There was cardiomegaly, no pulmonary embolus was evident. COVID-19 PCR and influenza A and B were negative. Admission blood work showed a white blood cell count of 12.6, hemoglobin of 13.1, correlation profile was within normal limits, sodium is 132, potassium is 4.3, chloride is 97, CO2 is 33, BUN was 14, creatinine 0.83 lactic acid was 1.1, urinalysis showed trace protein, but no sign of infection. Blood cultures were sent, showing no growth at the 24-hour estephanie. She was started on empiric Azithromycin and Rocephin for possibility of community-acquired pneumonia, she was started on IV steroids and nebulized bronchodilators and this consult was initiated. The time of our evaluation patient is awake, and alert, is on high flow oxygen at 9 L satting 87-90%. She is responding appropriately, although seems to be a bit irritable 03/06/2022, the patient continues to BE short of breath, not much change compared to yesterday. The chest x-ray still showing multifocal pneumonia. The patient has a congested cough, unable to bring up much sputum. He remains in some antibiotic coverage. Remains on O2 and the patient is currently on 8 L O2 nasal cannula. The patient remains on accommodation Rocephin and Zithromax. The patient is also on IV Solu-Medrol and DuoNeb neb oximetry on the clock. The patient's Douglas is a 21.2 with a hemoglobin of 13, the patient's BUN is a 12 with a creatinine of 0.5 and a sodium level of 140. Legionella urine antigen was negative. The blood cultures of been negative for now. 03/07/2022, the patient has no new complaints. She continues to BE short of breath breath and wheezing related to her underlying COPD/pneumonia. The patient remains on accommodation Rocephin and Zithromax. The patient is on IV Solu-Medrol. The blood cultures of been negative. The sputum cultures have not been obtained yet as the patient is unable to give any sputum. Urine antigen is negative. The patient's white cell count is down to 18 with a hemoglobin of 13.2, BUN is a 15 with a creatinine of 0.5 and his sodium level is at 141. No altered mentation for now. She is quite debilitated and his COPD his advanced as the patient has heavy nicotine use was used to smoke up to 3-4 packs of cigarettes on a daily basis. No signs of any CO2 narcosis. A repeat chest x- ray was done today and the patient has no evidence of any pneumothorax. There is diffuse increase in lung markings bilaterally along with small bilateral pleural effusions and the patient has questionable area of pneumomediastinum a long the aortic arch without evidence of any pneumothorax. On 03/08/2022 patient seen in follow-up on medical surgical floor. She is resting comfortably in bed, does not appear to be in any acute distress, but still requiring high flow oxygen at 8 L, and her pulse ox is 91%, she is afebrile today, blood pressure stable. Mentation is appropriate, she is responding to verbal questioning appropriately, she is oriented 3. She denies any chest discomfort, no hemoptysis, however she states she just feels very tired all the time, she states her breathing is the same not any worse however not particularly better either. She does have a significantly congested cough, he states that time she is able to bring up small amounts of sputum. She tested negative for COVID-19, influenza A and B, and Legionella urine antigen was also negative. She is on Rocephin and azithromycin for antibiotic coverage. Her white count on today's labs is improving and is down to 16.1, hemoglobin is 14.3, CO2 is 31 on her BMP, the rest of electrolytes and renal profile were within normal limits. Chest x-ray today showing diffuse bilateral airspace disease and pleural effusion and small amount of air along the upper mediastinum which could potentially represent a small degree of pneumomediastinum. Patient remains on IV steroids and nebulized bronchodilators, she is on GI and DVT prophylaxis. She is on IV hydration with point normal seen at a rate of 75 ML per hour. On 03/09/2022 patient seen in follow-up on medical surgical floor. She is sitting up in the chair, appears to be in no acute distress, she requires high flow oxygen, today she is on 8 L, pulse ox is 93-94%. However on today's exam she appears to be less fatigued, she is more alert, breathing easier. No chest discomfort, no hemoptysis. She remains on 0.9 normal saline at 75 ML per hour, we switched her antibiotics to Zosyn yesterday, follow-up chest x-ray has been requested for tomorrow, clinically patient has been stable, her white blood cell count was improving on yesterday's labs, she has not been able to produce a sputum culture, blood cultures have been negative thus far. No acute events overnight. Objective - Vital Signs Vital signs: Vital Signs Temp 98.5 F 03/09/22 08:00 Pulse 74 03/09/22 08:43 Resp 18 03/09/22 08:12 BP 154/79 03/09/22 08:00 Pulse Ox 93 L 03/09/22 08:00 Intake & Output 03/08/22 03/09/22 03/09/22 18:59 06:59 18:59 Intake Total 400 250 Output Total 300 Balance -300 400 250 Intake: Oral 400 250 Output: Urine 300 Other: Voiding Method Toilet Toilet Toilet # Voids 2 2 - Exam GENERAL EXAM: Alert, 66-year-old white female, on 8 L of oxygen with a pulse ox of 93% comfortable in no apparent distress. HEAD: Normocephalic/atraumatic. EYES: Normal reaction of pupils, equal size. Conjunctiva pink, sclera white. NOSE: Clear with pink turbinates. THROAT: No erythema or exudates. NECK: No masses, no JVD, no thyroid enlargement, no adenopathy. CHEST: No chest wall deformity. Symmetrical expansion. LUNGS: Equal air entry with crackles CVS: Regular rate and rhythm, normal S1 and S2, no gallops, no murmurs, no rubs ABDOMEN: Soft, nontender. No hepatosplenomegaly, normal bowel sounds, no guarding or rigidity. EXTREMITIES: No clubbing, no edema, no cyanosis, 2+ pulses and upper and lower extremities. MUSCULOSKELETAL: Muscle strength and tone normal. SPINE: No scoliosis or deformity SKIN: No rashes CENTRAL NERVOUS SYSTEM: Alert and oriented -3. No focal deficits, tone is normal in all 4 extremities. PSYCHIATRIC: Alert and oriented -3. Appropriate affect. Intact judgment and insight. - Labs CBC & Chem 7: 03/08/22 08:25 03/08/22 08:25 Labs: Microbiology - Last 24 Hours (Table) 03/03/22 22:50 Blood Culture - Preliminary Blood No Growth after 120 hours 03/03/22 23:05 Blood Culture - Preliminary Blood No Growth after 120 hours Assessment and Plan Plan: Assessment: #1. Acute hypoxic respiratory failure related to bilateral pneumonia, possibly community-acquired, or potentially aspiration related, and patient remains on high flow oxygen at 8 L. Altered mental status related to pneumonia and sepsis #2. Chronic and ongoing history of smoking #3. History of COPD #4. Bipolar disorder #5. Anxiety #6. Hypothyroidism #7. Hypertension Plan: Continue current antibiotic coverage Continue nebulized bronchodilators Clinically patient feels and looks better on today's exam We'll obtain follow-up chest x-ray tomorrow If there is no improvement in the chest x-ray we may consider proceeding with bronchoscopy with BAL the following day, possibly on , on 03/11/2022 This was discussed with the patient Continue current therapies. I have personally seen and examined the patient, performed the documentation and the assessment and plan as written. Number of minutes spent on the visit: 10 Time with Patient: Less than 30
--- NOTE | 2022-03-09 18:51 | P.PN ---
Subjective Progress Note Date: 03/09/22 (delayed charting seen at 1000) Principal diagnosis: altered mentation Recent 66-year-old female with a history of COPD, tobacco abuse, hypertension, and hypothyroidism who presented to the ER with complaints of altered mentation. In the ER she underwent an extensive evaluation. She was found to be febrile with a fever of 101.4 to blood pressure 99/53. Laboratory analysis showed an elevated white blood cell count of 12.6, sodium 132, COVID and flu testing were negative. Chest x-ray demonstrated moderate bilateral pneumonia. She was started on Zithromax and ceftriaxone was admitted for further monitoring. Patient became increasingly hypoxic requiring increased O2. She was started on bronchodilators and steroids. CTA chest was negative for pulmonary embolism but did show pneumonia. Pulmonary was consulted and they agreed with current plan of care. She was found to have a small pneumo on 03/06. Patient seen and examined at bedside. Sitting in chair coloring. Not crying. Denies shortness of breath, chest pain, and nausea. General: non toxic, no distress, appears at stated age Derm: warm, dry Head: atraumatic, normocephalic, symmetric Eyes: EOMI, no lid lag, anicteric sclera Mouth: no lip lesion, mucus membranes dry Cardiovascular: S1S2 reg, no murmur, positive posterior tibial pulse bilateral, Lungs: Course bs bilateral, no conversational dyspnea, no accessory muscle use Abdominal: soft, nontender to palpation, no guarding, no appreciable organom egaly Ext: no gross muscle atrophy, no edema, no contractures Neuro: CN II-XI grossly intact, no focal neuro deficits Psych: more awake, oriented 3, blunted affect Assessment/plan: Community-acquired pneumonia with sepsis Acute exacerbation of COPD Acute hypoxic respiratory failure Metabolic encephalopathy Small pneumothorax, resolved -Continued with steroids and bronchodilators -Zosyn -Pulmonary recs appreciated : possible bronch if no improvement. -Maintain O2 -Safe and supportive environment - Lamictal level normal: lamictal decreased - repeat CXR in AM Hypertension - Norvasc -Follow blood pressures Hypothyroidism -Synthroid Chronic pain - Subutex to bring in-- still not availabe and patient without pain. I recommended her staying off this now. Anxiety, Bipolar disorder, depression -Vistaril, escitalopram, Valium, and Lamictal - psych recs appreciated Hyponatremia, improved DVT prophylaxis: Heparin Discussed with: patient, nursing Anticipated discharge: in 2-3 days, once at 5L or less Anticipated discharge place: home A total of 35 minutes was spent on the care of this complex patient more than 50% of the time was spent in counseling and care coordination. Active Medications Active Medications Generic Name Dose Route Start Last Admin Trade Name Freq PRN Reason Stop Dose Admin Albuterol Sulfate 2.5 mg 03/04/22 14:13 03/07/22 03:41 Albuterol Nebulized 2.5 Mg/3 Ml INHALATION 2.5 mg RT-QID PRN Administration Shortness Of Breath Or Wheezing Albuterol/Ipratropium 3 ml 03/04/22 16:00 03/09/22 15:54 Ipratropium-Albuterol 3 Ml Neb INHALATION 3 ml RT-QID SCOTTY Administration Amlodipine Besylate 10 mg 03/05/22 09:00 03/09/22 08:05 Amlodipine 10 Mg Tab PO 10 mg DAILY SCOTTY Administration Diazepam 2 mg 03/08/22 20:27 Diazepam 2 Mg Tab PO DAILY PRN Anxiety Escitalopram Oxalate 20 mg 03/05/22 11:00 03/09/22 08:05 Escitalopram 20 Mg Tab PO 20 mg DAILY SCOTTY Administration Heparin Sodium (Porcine) 5,000 unit 03/04/22 08:00 03/09/22 16:01 Heparin Sodium,Porcine/Pf 5,000 Unit/0.5 Ml Syringe SQ 5,000 unit Q8HR SCOTTY Administration Hydroxyzine Pamoate 25 mg 03/05/22 10:55 03/08/22 09:41 Hydroxyzine Pamoate 25 Mg Cap PO 25 mg BID PRN Administration Anxiety Piperacillin Sod/Tazobactam 100 mls @ 25 mls/hr 03/08/22 12:00 03/09/22 14:24 Sod 3.375 gm/ Sodium Chloride IVPB 25 mls/hr Q8H SCOTTY Administration Protocol Lamotrigine 75 mg 03/06/22 21:00 03/09/22 08:06 Lamotrigine 25 Mg Tab PO 75 mg BID SCOTTY Administration Levothyroxine Sodium 50 mcg 03/05/22 06:30 03/09/22 05:20 Levothyroxine 50 Mcg Tab PO 50 mcg DAILY@0630 SCOTTY Administration Methylprednisolone Sodium Succinate 40 mg 03/08/22 21:00 03/09/22 08:05 Methylprednisolone Sod Succi 40 Mg/Ml 1 Ml Vial IV 40 mg Q12HR SCOTTY Administration Naloxone HCl 0.2 mg 03/04/22 03:59 Naloxone 0.4 Mg/Ml 1 Ml Vial IV Q2M PRN Opioid Reversal Patient's Own ( 8 mg 03/05/22 16:00 03/09/22 14:20 Buprenorphine Hcl [ SUBLINGUAL Not Given Subutex] 8 Mg Tablet TID SCOTTY ) Trazodone HCl 100 mg 03/05/22 21:00 03/08/22 21:16 Trazodone Hcl 100 Mg Tab PO 100 mg HS SCOTTY Administration Objective - Vital Signs Vital signs: Vital Signs Temp 98.4 F 03/09/22 14:00 Pulse 77 03/09/22 16:06 Resp 18 03/09/22 16:06 BP 146/66 03/09/22 14:00 Pulse Ox 95 03/09/22 15:54 Intake & Output 03/08/22 03/09/22 03/09/22 18:59 06:59 18:59 Intake Total 400 250 Output Total 300 Balance -300 400 250 Weight 87.997 kg Intake: Oral 400 250 Output: Urine 300 Other: Voiding Method Toilet Toilet Toilet # Voids 2 2 5 # Bowel Movements 2 - Labs CBC & Chem 7: 03/08/22 08:25 03/08/22 08:25 Labs: Microbiology - Last 24 Hours (Table) 03/03/22 22:50 Blood Culture - Preliminary Blood No Growth after 120 hours 03/03/22 23:05 Blood Culture - Preliminary Blood No Growth after 120 hours
[2022-03-09] MEDS: traZODone HCL 100 MG TAB PO SCH (20:41)
[2022-03-10] MEDS: PIPERACILLIN-TAZOBACTAM 3.375 GM in SODIUM CHLORIDE 0.9% 100 ML IVPB SCH ×3 (04:41→21:06)
[2022-03-10] MEDS ORDERED: IBUPROFEN 600 MG TAB PO STA (05:01)
[2022-03-10] MEDS: LEVOTHYROXINE 50 MCG TAB PO SCH (06:02)
[2022-03-10] MEDS: IPRATROPIUM-ALBUTEROL 3 ML NEB INHALATION SCH ×4 (07:09→20:55)
[2022-03-10] MEDS: ESCITALOPRAM 20 MG TAB PO SCH (07:50)
[2022-03-10] MEDS: HEPARIN SODIUM,PORCINE/PF 5,000 UNIT/0.5 ML SYRINGE SQ SCH ×3 (07:50→23:06)
[2022-03-10] MEDS: amLODIPine 10 MG TAB PO SCH (07:50)
[2022-03-10] MEDS: lamoTRIgine 25 MG TAB PO SCH ×2 (07:50→21:06)
[2022-03-10] MEDS: methylPREDNISolone SOD SUCCI 40 MG/ML 1 ML VIAL IV SCH (07:51)
[2022-03-10] MEDS: BUPRENORPHINE HCL 8 MG SUBLINGUAL SCH ×3 (07:52→23:05)
--- NOTE | 2022-03-10 09:01 | XR ---
EXAMINATION TYPE: XR chest 1V portable DATE OF EXAM: 03/10/2022 COMPARISON: NONE HISTORY: Cough TECHNIQUE: Single frontal view of the chest is obtained. FINDINGS: Hyperinflation with diffuse interstitial pattern, bilateral infiltrate and pleural effusio n. Atherosclerotic change aorta. Postsurgical change left shoulder with arthropathy bilaterally. IMPRESSION: 1. There is mild improvement in the perihilar and upper lobe areas of infiltrate with persistent is p leural-parenchymal changes superimposed on a background COPD. Correlate for improving pulmonary edema versus pneumonia.
[2022-03-10 10:04] LABS: HCT 41.6 % (37.2-46.3); HGB 12.9 g/dL (12.0-15.0); MCH 28.7 pg (27.0-32.0); MCV 92.7 fL (80.0-97.0); NRBC Per 100 WBC 0 /100 WBCS (0.0-0.0); Platelet Count 410 X 10*3/uL (140-440); RBC 4.49 X 10*6/uL (4.10-5.20); WBC 11.03 X 10*3/uL (4.50-10.00)
--- NOTE | 2022-03-10 11:41 | P.PN ---
Subjective Progress Note Date: 03/10/22 Principal diagnosis: Shortness of breath, bilateral pneumonia 66-year-old white female patient past medical history of COPD, chronic and ongoing heavy nicotine use, patient smokes 3-4 packs a day, hypothyroidism, bipolar disorder, panic disorder, who presented to the emergency department with her who was concerned about her altered mental status, not feeling well. Patient's was concerned that she has been sleeping a lot, seems confused when she was awake and this had been going on for 2 days prior to presentation. Patient denied any other complaints. Denied any chest pain or cough. EKG showed normal sinus rhythm with no acute ST elevations or depressi ons, chest x-ray showing moderate bilateral pneumonia with patchy airspace infiltrate in the left lower lobe, and right lung base as well as right middle lung field. No heart failure, there is some blunting of the right costophrenic angle consistent with small right pleural effusion. CTA chest showed bilateral areas of air bronchograms especially at the lung bases but also scattered within the perihilar location on the left, groundglass densities peripherally in the upper lobes greater on the left than on the right, small right pleural effusion. There was cardiomegaly, no pulmonary embolus was evident. COVID-19 PCR and influenza A and B were negative. Admission blood work showed a white blood cell count of 12.6, hemoglobin of 13.1, correlation profile was within normal limits, sodium is 132, potassium is 4.3, chloride is 97, CO2 is 33, BUN was 14, creatinine 0.83 lactic acid was 1.1, urinalysis showed trace protein, but no sign of infection. Blood cultures were sent, showing no growth at the 24-hour estephanie. She was started on empiric Azithromycin and Rocephin for possibility of community-acquired pneumonia, she was started on IV steroids and nebulized bronchodilators and this consult was initiated. The time of our evaluation patient is awake, and alert, is on high flow oxygen at 9 L satting 87-90%. She is responding appropriately, although seems to be a bit irritable 03/06/2022, the patient continues to BE short of breath, not much change compared to yesterday. The chest x-ray still showing multifocal pneumonia. The patient has a congested cough, unable to bring up much sputum. He remains in some antibiotic coverage. Remains on O2 and the patient is currently on 8 L O2 nasal cannula. The patient remains on accommodation Rocephin and Zithromax. The patient is also on IV Solu-Medrol and DuoNeb neb oximetry on the clock. The patient's Douglas is a 21.2 with a hemoglobin of 13, the patient's BUN is a 12 with a creatinine of 0.5 and a sodium level of 140. Legionella urine antigen was negative. The blood cultures of been negative for now. 03/07/2022, the patient has no new complaints. She continues to BE short of breath breath and wheezing related to her underlying COPD/pneumonia. The patient remains on accommodation Rocephin and Zithromax. The patient is on IV Solu-Medrol. The blood cultures of been negative. The sputum cultures have not been obtained yet as the patient is unable to give any sputum. Urine antigen is negative. The patient's white cell count is down to 18 with a hemoglobin of 13.2, BUN is a 15 with a creatinine of 0.5 and his sodium level is at 141. No altered mentation for now. She is quite debilitated and his COPD his advanced as the patient has heavy nicotine use was used to smoke up to 3-4 packs of cigarettes on a daily basis. No signs of any CO2 narcosis. A repeat chest x- ray was done today and the patient has no evidence of any pneumothorax. There is diffuse increase in lung markings bilaterally along with small bilateral pleural effusions and the patient has questionable area of pneumomediastinum a long the aortic arch without evidence of any pneumothorax. On 03/08/2022 patient seen in follow-up on medical surgical floor. She is resting comfortably in bed, does not appear to be in any acute distress, but still requiring high flow oxygen at 8 L, and her pulse ox is 91%, she is afebrile today, blood pressure stable. Mentation is appropriate, she is responding to verbal questioning appropriately, she is oriented 3. She denies any chest discomfort, no hemoptysis, however she states she just feels very tired all the time, she states her breathing is the same not any worse however not particularly better either. She does have a significantly congested cough, he states that time she is able to bring up small amounts of sputum. She tested negative for COVID-19, influenza A and B, and Legionella urine antigen was also negative. She is on Rocephin and azithromycin for antibiotic coverage. Her white count on today's labs is improving and is down to 16.1, hemoglobin is 14.3, CO2 is 31 on her BMP, the rest of electrolytes and renal profile were within normal limits. Chest x-ray today showing diffuse bilateral airspace disease and pleural effusion and small amount of air along the upper mediastinum which could potentially represent a small degree of pneumomediastinum. Patient remains on IV steroids and nebulized bronchodilators, she is on GI and DVT prophylaxis. She is on IV hydration with point normal seen at a rate of 75 ML per hour. On 03/09/2022 patient seen in follow-up on medical surgical floor. She is sitting up in the chair, appears to be in no acute distress, she requires high flow oxygen, today she is on 8 L, pulse ox is 93-94%. However on today's exam she appears to be less fatigued, she is more alert, breathing easier. No chest discomfort, no hemoptysis. She remains on 0.9 normal saline at 75 ML per hour, we switched her antibiotics to Zosyn yesterday, follow-up chest x-ray has been requested for tomorrow, clinically patient has been stable, her white blood cell count was improving on yesterday's labs, she has not been able to produce a sputum culture, blood cultures have been negative thus far. No acute events overnight. On 03/10/2022 patient seen in follow-up on medical surgical floor, she is resting comfortably in bed, she feels, and sounds much better. Today's follow- up chest x-ray shows improvement in the perihilar and upper lobe areas of infiltrates. Patient is currently on 6 L of oxygen and a pulse ox is 98-99%. Nursing reports that patient sometimes removes her oxygen and desaturated down to 82%. Likely will qualify for home oxygen. In the meanwhile her FiO2 can be weaned further down to keep O2 sats ration is at 88-90%. Clinically patient is breathing easier, no cough, she is less fatigued, she is awake and alert, interactive. No altered mentation. White blood cell count is improving and is down to 11.03, hemoglobin is 12.9, BMP is pending. Blood cultures have been negative. Objective - Vital Signs Vital signs: Vital Signs Temp 98.1 F 03/10/22 08:00 Pulse 69 03/10/22 08:00 Resp 18 03/10/22 08:00 BP 160/83 03/10/22 08:00 Pulse Ox 99 03/10/22 08:00 Intake & Output 03/09/22 03/10/22 03/10/22 18:59 06:59 18:59 Intake Total 250 Balance 250 Weight 87.997 kg Intake: Oral 250 Other: Voiding Method Toilet Bedside Commode Bedside Commode # Voids 5 5 1 # Bowel Movements 2 1 1 - Exam GENERAL EXAM: Alert, 66-year-old white female, on 6 L of oxygen with a pulse ox of 99% comfortable in no apparent distress. HEAD: Normocephalic/atraumatic. EYES: Normal reaction of pupils, equal size. Conjunctiva pink, sclera white. NOSE: Clear with pink turbinates. THROAT: No erythema or exudates. NECK: No masses, no JVD, no thyroid enlargement, no adenopathy. CHEST: No chest wall deformity. Symmetrical expansion. LUNGS: Equal air entry with crackles CVS: Regular rate and rhythm, normal S1 and S2, no gallops, no murmurs, no rubs ABDOMEN: Soft, nontender. No hepatosplenomegaly, normal bowel sounds, no guarding or rigidity. EXTREMITIES: No clubbing, no edema, no cyanosis, 2+ pulses and upper and lower extremities. MUSCULOSKELETAL: Muscle strength and tone normal. SPINE: No scoliosis or deformity SKIN: No rashes CENTRAL NERVOUS SYSTEM: Alert and oriented -3. No focal deficits, tone is normal in all 4 extremities. PSYCHIATRIC: Alert and oriented -3. Appropriate affect. Intact judgment and insight. - Labs CBC & Chem 7: 03/10/22 04:07 03/08/22 08:25 Labs: Abnormal Lab Results - Last 24 Hours (Table) 03/10/22 Range/Units 04:07 WBC 11.03 H (4.50-10.00) X 10*3/uL MCHC 31.0 L (32.0-37.0) g/dL RDW 15.0 H (11.5-14.5) % Microbiology - Last 24 Hours (Table) 03/03/22 22:50 Blood Culture - Final Blood No Growth after 144 hours 03/03/22 23:05 Blood Culture - Final Blood No Growth after 144 hours Assessment and Plan Plan: Assessment: #1. Acute hypoxic respiratory failure related to bilateral pneumonia, possibly community-acquired, or potentially aspiration related, improving patient is down to 6 L of oxygen Altered mental status related to pneumonia and sepsis #2. Chronic and ongoing history of smoking #3. History of COPD #4. Bipolar disorder #5. Anxiety #6. Hypothyroidism #7. Hypertension Plan: Continue current antibiotic coverage Continue nebulized bronchodilators Today's chest x-ray shows improvement in the appearance of perihilar and upper lobe infiltrates Clinically patient is also improving Wean FiO2 to keep O2 sats saturations 88-90% Obtain home oxygen assessment Consider for discharge home tomorrow No need for bronchoscopy at this time I have personally seen and examined the patient, performed the documentation and the assessment and plan as written. Number of minutes spent on the visit: 10 Time with Patient: Less than 30
[2022-03-10] MEDS ORDERED: LORazepam 2 MG/ML INJ IV STA (15:53)
--- NOTE | 2022-03-10 17:25 | P.PN ---
Subjective Progress Note Date: 03/10/22 (delayed charting seen at approx 10 am) Principal diagnosis: altered mentation Recent 66-year-old female with a history of COPD, tobacco abuse, hypertension, and hypothyroidism who presented to the ER with complaints of altered mentation. In the ER she underwent an extensive evaluation. She was found to be febrile with a fever of 101.4 to blood pressure 99/53. Laboratory analysis showed an elevated white blood cell count of 12.6, sodium 132, COVID and flu testing were negative. Chest x-ray demonstrated moderate bilateral pneumonia. She was started on Zithromax and ceftriaxone was admitted for further monitoring. Patient became increasingly hypoxic requiring increased O2. She was started on bronchodilators and steroids. CTA chest was negative for pulmonary embolism but did show pneumonia. Pulmonary was consulted and they agreed with current plan of care. She was found to have a small pneumo on 03/06. Patient seen and examined at bedside. Sitting in chair coloring. Not crying. Denies shortness of breath, chest pain, and nausea. General: non toxic, no distress, appears at stated age Derm: warm, dry Head: atraumatic, normocephalic, symmetric Eyes: EOMI, no lid lag, anicteric sclera Mouth: no lip lesion, mucus membranes dry Cardiovascular: S1S2 reg, no murmur, positive posterior tibial pulse bilateral, Lungs: Course bs bilateral, no conversational dyspnea, no accessory muscle use Abdominal: soft, nontender to palpation, no guarding, no appreciable organomegaly Ext: no gross muscle atrophy, no edema, no contractures Neuro: CN II-XI grossly intact, no focal neuro deficits Psych: more awake, oriented 3, blunted affect Assessment/plan: Community-acquired pneumonia with sepsis Acute exacerbation of COPD Acute hypoxic respiratory failure Metabolic encephalopathy Small pneumothorax, resolved - Continued with steroids and bronchodilators - Zosyn - Pulmonary recs appreciated : home in AM - Maintain O2 - Safe and supportive environment - Lamictal level normal: lamictal decreased - repeat CXR in AM Hypertension - Norvasc - Follow blood pressures Hypothyroidism -Synthroid Chronic pain - Subutex to bring in-- still not available and patient without pain. I recommended her staying off this now. Anxiety, Bipolar disorder, depression -Vistaril, escitalopram, Valium, and Lamictal - psych recs appreciated plan was for home on Lamictal 75 mg Hyponatremia, improved Patient became very agitated in the afternoon required benzos, MR. Jimenez was called. DVT prophylaxis: Heparin Discussed with: patient, nursing Anticipated discharge: in AM Anticipated discharge place: home A total of 35 minutes was spent on the care of this complex patient more than 50% of the time was spent in counseling and care coordination. Active Medications Generic Name Dose Route Start Last Admin Trade Name Freq PRN Reason Stop Dose Admin Albuterol Sulfate 2.5 mg 03/04/22 14:13 03/07/22 03:41 Albuterol Nebulized 2.5 Mg/3 Ml INHALATION 2.5 mg RT-QID PRN Administration Shortness Of Breath Or Wheezing Albuterol/Ipratropium 3 ml 03/04/22 16:00 03/10/22 16:33 Ipratropium-Albuterol 3 Ml Neb INHALATION Not Given RT-QID SCOTTY Amlodipine Besylate 10 mg 03/05/22 09:00 03/10/22 07:50 Amlodipine 10 Mg Tab PO 10 mg DAILY SCOTTY Administration Diazepam 2 mg 03/08/22 20:27 Diazepam 2 Mg Tab PO DAILY PRN Anxiety Escitalopram Oxalate 20 mg 03/05/22 11:00 03/10/22 07:50 Escitalopram 20 Mg Tab PO 20 mg DAILY SCOTTY Administration Heparin Sodium (Porcine) 5,000 unit 03/04/22 08:00 03/10/22 07:50 Heparin Sodium,Porcine/Pf 5,000 Unit/0.5 Ml Syringe SQ 5,000 unit Q8HR SCOTTY Administration Hydroxyzine Pamoate 25 mg 03/05/22 10:55 03/08/22 09:41 Hydroxyzine Pamoate 25 Mg Cap PO 25 mg BID PRN Administration Anxiety Piperacillin Sod/Tazobactam 100 mls @ 25 mls/hr 03/08/22 12:00 03/10/22 11:53 Sod 3.375 gm/ Sodium Chloride IVPB 25 mls/hr Q8H SCOTTY Administration Protocol Lamotrigine 75 mg 03/06/22 21:00 03/10/22 07:50 Lamotrigine 25 Mg Tab PO 75 mg BID SCOTTY Administration Levothyroxine Sodium 50 mcg 03/05/22 06:30 03/10/22 06:02 Levothyroxine 50 Mcg Tab PO 50 mcg DAILY@0630 SCOTTY Administration Naloxone HCl 0.2 mg 03/04/22 03:59 Naloxone 0.4 Mg/Ml 1 Ml Vial IV Q2M PRN Opioid Reversal Patient's Own ( 8 mg 03/05/22 16:00 03/10/22 17:14 Buprenorphine Hcl [ SUBLINGUAL Not Given Subutex] 8 Mg Tablet TID [facility] ) Prednisone 60 mg 03/11/22 09:00 Prednisone 20 Mg Tab PO DAILY SCOTTY Trazodone HCl 100 mg 03/05/22 21:00 03/08/22 21:16 Trazodone Hcl 100 Mg Tab PO 100 mg HS SCOTTY Administration Objective - Vital Signs Vital signs: Vital Signs Temp 98.2 F 03/10/22 14:00 Pulse 75 03/10/22 14:00 Resp 18 03/10/22 14:00 BP 135/65 03/10/22 14:00 Pulse Ox 96 03/10/22 14:00 Intake & Output 03/09/22 03/10/22 03/10/22 18:59 06:59 18:59 Intake Total 250 Balance 250 Weight 87.997 kg Intake: Oral 250 Other: Voiding Method Toilet Bedside Commode Bedside Commode # Voids 5 5 1 # Bowel Movements 2 1 1 - Labs CBC & Chem 7: 03/10/22 04:07 03/08/22 08:25 Labs: Abnormal Lab Results - Last 24 Hours (Table) 03/10/22 Range/Units 04:07 WBC 11.03 H (4.50-10.00) X 10*3/uL MCHC 31.0 L (32.0-37.0) g/dL RDW 15.0 H (11.5-14.5) % Microbiology - Last 24 Hours (Table) 03/03/22 22:50 Blood Culture - Final Blood No Growth after 144 hours 03/03/22 23:05 Blood Culture - Final Blood No Growth after 144 hours
[2022-03-10] MEDS: traZODone HCL 100 MG TAB PO SCH (21:06)
[2022-03-11] MEDS: PIPERACILLIN-TAZOBACTAM 3.375 GM in SODIUM CHLORIDE 0.9% 100 ML IVPB SCH ×2 (03:42→11:54)
[2022-03-11 03:47] VITALS: RESP 16
[2022-03-11] MEDS: LEVOTHYROXINE 50 MCG TAB PO SCH (05:43)
[2022-03-11] MEDS: BUPRENORPHINE HCL 8 MG SUBLINGUAL SCH ×2 (08:18→15:46)
[2022-03-11] MEDS: lamoTRIgine 25 MG TAB PO SCH (08:23)
[2022-03-11] MEDS: HEPARIN SODIUM,PORCINE/PF 5,000 UNIT/0.5 ML SYRINGE SQ SCH (08:24)
[2022-03-11] MEDS: ESCITALOPRAM 20 MG TAB PO SCH (08:24)
[2022-03-11] MEDS: amLODIPine 10 MG TAB PO SCH (08:24)
[2022-03-11] MEDS: IPRATROPIUM-ALBUTEROL 3 ML NEB INHALATION SCH ×3 (08:38→15:15)
[2022-03-11] MEDS ORDERED: predniSONE 20 MG TAB PO SCH (09:00)
--- NOTE | 2022-03-11 13:02 | P.DS ---
Providers Date of admission: 03/04/22 03:59 Expected date of discharge: 03/11/22 Attending physician: Oni Ruvalcaba MD Consults: 03/04/22 18:45 Consult Physician Routine Consulting Provider: Lora Cheng Consult Reason/Comments: pnuemonia Do you want consulting provider notified?: Yes 03/08/22 09:38 Consult Physician Routine Consulting Provider: Stanley Birmingham Consult Reason/Comments: bipolar disorder Do you want consulting provider notified?: Yes Primary care physician: Mitul Rodriguez MD Hospital Course: Discharge Diagnosis: Community-acquired pneumonia, discharged home on doxycycline 100 mg by mouth twice daily 3 days to complete a 7 day course of antibiotics for treatment of community-acquired pneumonia. In addition patient discharged home on prednisone taper, Symbicort, and Ventolin inhaler. Sepsis secondary to above COPD with acute exacerbation secondary to community-acquired pneumonia, patient requiring home oxygen Acute hypoxic respiratory failure secondary to COPD exacerbation with community- acquired pneumonia Metabolic encephalopathy, recommend stopping Subutex Small pneumothorax, resolved Hypertension, monitor vital signs Hypothyroidism, continue daily medication regimen of levothyroxine Chronic pain, patient on Subutex, recommend discontinuation as patient was free from pain during hospitalization and was not taking this medication. Anxiety, bipolar disorder, and depression. Patient underwent evaluation by psychiatry secondary to metabolic encephalopathy and recommending decreasing Lamictal to 75 mg daily upon discharge. Hospital Course: Patient is a very pleasant 66-year-old female with a past medical history of COPD with continued nicotine dependence, hypertension, hypothyroidism, anxiety, bipolar disorder, and depression and chronic pain. She presented to the emergency department on 03/03/22 with a chief complaint of alteration in mental status. She underwent an extensive evaluation and was found to show signs of SIRS with fever of 101.4F, heart rate 95, blood pressure 99/53, and hypoxic with SpO2 of 67% on room air requiring supplemental oxygen of 4 L to maintain SpO2 is 91%. Labs completed revealing mild leukocytosis with WBC count of 12.6, hyponatremia with sodium of 132, and respiratory acidosis with chloride 97, CO2 33, and anion gap of 2 with ABG revealing pH of 7.37, pCO2 of 43, and PaO2 of 58 with total CO2 of 26 and base of -0.2. Urinalysis was negative for infection. Covid PCR, influenza A, and influenza B all negative. Chest x-ray revealing moderate bilateral pneumonia. EKG was completed revealing sinus rhythm at 81 bpm with no noted T wave ST abnormality showing no signs of acute ischemia. CT completed correlating for pneumonia with a small right pleural effusion. Patient was admitted under our services of consultation to pulmonology. On 03/06/22 and repeat chest x-ray revealed a minimal pneumomediastinum or pneumothorax at the level of the aortic arch, recommending follow-up. Pulmonary evaluated and diagnosed patient with a small pneumothorax. Patient underwent treatment for community-acquired pneumonia including IV antibiotics with Zosyn, steroids, and bronchodilators. Pneumothorax resolved. Patient was evaluated by psychiatry who recommending outpatient decrease Lamictal to 75 mg at discharge. It is also recommended that patient discontinue Subutex until further follow-up with pain management provider as patient has not been on medication throughout hospitalization and denying any pain. Patient showing improvement throughout hospitalization and is medically stable for discharge home. She was evaluated for home oxygen and was found to be 86% on room air dropping to 81% with ambulation And after placement back on 4 L O2 via nasal cannula patient 93% at rest on 4 L O2 decreasing to 88% with ambulation and quickly rebounding back up to 93% upon rest. Patient is going to be discharged home on home oxygen with home care services. In addition to home oxygen, patient being discharged home on doxycycline 100 mg by mouth twice daily 3 days to complete a 7 day course of antibiotics for treatment of community-acquired pneumonia. In addition patient discharged home on prednisone taper, Symbicort, and Ventolin inhaler. Patient to follow up outpatient with PCP and pulmonary as recommended. Physical examination: Patient seen and examined at bedside. She was sitting up in the chair on 4 L O2 via nasal cannula. Patient reports feeling slightly weakness otherwise denies having any complaints or concerns this morning. Home oxygen evaluation was completed and patient will require to be discharged home on oxygen secondary to advanced COPD. It was discussed with patient that it is strongly advised for her to stop smoking and we also discussed the dangers of smoking while on oxygen and open flames near oxygen. Patient verbalized understanding. Vital signs reviewed and stable. General: Nontoxic, no distress and appears stated age. Derm: Skin warm and dry, normal coloration for ethnicity. Head: Atraumatic, normocephalic and symmetric. Eyes: EOMs intact, no lid lag, and anicteric sclera Mouth: no lip lesions, mucus membranes moist Cardiovascular: regular rate and rhythm with normal S1S2, no murmur, positive posterior tibial pulses bilaterally, and cap refill < 2 seconds. Lungs: Respirations even, regular, and unlabored on room air. Lungs CTA bilaterally, no rhonchi, no rales, no wheezing, and no accessory muscle usage. Abdominal: soft, nontender to palpation, no guarding, no appreciable organomegaly Ext: ROM intact. No gross muscle atrophy, no edema, no contractures Neuro: Speech clear, face symmetrical and CN II-XII grossly intact with no noted focal neuro deficits Psych: Alert and oriented to person, place, time, and situation. Appropriate and pleasant affect. A total of 40 minutes of time were spent preparing this complex discharge summary. Pt was discharged on 03/11/22 at 1518 p.m. Patient Condition at Discharge: Stable Plan - Discharge Summary Discharge Rx Participant: No New Discharge Prescriptions: New Doxycycline [Vibramycin] 100 mg PO BID 3 Days #6 capsule predniSONE See Taper PO DIRECTED 12 Days #30 tab Budesonide-Formot 160-4.5 Mcg [Symbicort 160-4.5 Mcg Inhaler] 2 puff INHALATION BID 30 Days #10.2 gm Albuterol Inhaler [Ventolin Hfa Inhaler] 2 puff INHALATION RT-QID #8 gm lamoTRIgine [LaMICtal] 75 mg PO BID 30 Days #60 tab Continue Levothyroxine Sodium [Levoxyl] 50 mcg PO DAILY amLODIPine [Norvasc] 10 mg PO DAILY 30 Days #30 tab traZODone HCL [Desyrel] 100 mg PO HS #14 tab diazePAM [Valium] 5 mg PO DAILY PRN PRN Reason: Anxiety Escitalopram [Lexapro] 20 mg PO DAILY hydrOXYzine pamoate [Vistaril] 25 mg PO BID PRN PRN Reason: Anxiety Discontinued buprenorphine HCL [Subutex] 8 mg SUBLINGUAL TID lamoTRIgine [LaMICtal] 150 mg PO BID Discharge Medication List Levothyroxine Sodium [Levoxyl] 50 mcg PO DAILY 04/04/14 [History] amLODIPine [Norvasc] 10 mg PO DAILY 30 Days #30 tab 01/27/18 [Rx] traZODone HCL [Desyrel] 100 mg PO HS #14 tab 07/02/19 [Rx] Escitalopram [Lexapro] 20 mg PO DAILY 03/04/22 [History] diazePAM [Valium] 5 mg PO DAILY PRN 03/04/22 [History] hydrOXYzine pamoate [Vistaril] 25 mg PO BID PRN 03/04/22 [History] Albuterol Inhaler [Ventolin Hfa Inhaler] 2 puff INHALATION RT-QID #8 gm 03/11/22 [Rx] Budesonide-Formot 160-4.5 Mcg [Symbicort 160-4.5 Mcg Inhaler] 2 puff INHALATION BID 30 Days #10.2 gm 03/11/22 [Rx] Doxycycline [Vibramycin] 100 mg PO BID 3 Days #6 capsule 03/11/22 [Rx] lamoTRIgine [LaMICtal] 75 mg PO BID 30 Days #60 tab 03/11/22 [Rx] predniSONE See Taper PO DIRECTED 12 Days #30 tab 03/11/22 [Rx] Follow up Appointment(s)/Referral(s): [facility],Equipment [NON-STAFF] - (*Please call [facility] once home to arrange delivery of oxygen concentrator. ) [facility], [NON-STAFF] - As Needed ([facility] will call you to schedule your in home visits. Please call them if you have questions regarding home care. ) Mitul Rodriguez MD [Primary Care Provider] - 1-2 days Dylan Sotomayor DO [Doctor of Osteopathic Medicine] - 1 Week Patient Instructions/Handouts: Using Oxygen at Home (DC), Community Acquired Pneumonia (DC), Hypoxia (GEN) Activity/Diet/Wound Care/Special Instructions: Activity: As tolerated. Take breaks as needed. Diet: Heart healthy and carb consistent diet. Avoid salts, or foods with hidden salts such as canned or boxed foods and frozen dinners. Extra salt makes your heart work harder and traps the fluid in your body for longer. Special Instructions: Take all of your medications as directed and remember to keep all of your doctor's appointments and follow-up as needed. Thank you for allowing us to participate in your care, it was truly a pleasure having you for our patient!!! Strongly encourage you to stop smoking. And remember as we discuss it is highly dangerous to smoke and have open fire/cigarette biomedical equipment tech around oxygen.
[2022-03-11 14:56] VITALS: BP 148/78; TEMP 98
--- NOTE | 2022-03-11 15:08 | P.PN ---
Subjective Progress Note Date: 03/11/22 66-year-old white female patient past medical history of COPD, chronic and ongoing heavy nicotine use, patient smokes 3-4 packs a day, hypothyroidism, bipolar disorder, panic disorder, who presented to the emergency department with her who was concerned about her altered mental status, not feeling well. Patient's was concerned that she has been sleeping a lot, seems confused when she was awake and this had been going on for 2 days prior to presentation. Patient denied any other complaints. Denied any chest pain or cough. EKG showed normal sinus rhythm with no acute ST elevations or depressions, chest x-ray showing moderate bilateral pneumonia with patchy airspace infiltrate in the left lower lobe, and right lung base as well as right middle lung field. No heart failure, there is some blunting of the right costophrenic angle consistent with small right pleural effusion. CTA chest showed bilateral areas of air bronchograms especially at the lung bases but also scattered within the perihilar location on the left, groundglass densities peripherally in the upper lobes greater on the left than on the right, small right pleural effusion. There was cardiomegaly, no pulmonary embolus was evident. COVID-19 PCR and influenza A and B were negative. Admission blood work showed a white blood cell count of 12.6, hemoglobin of 13.1, correlation profile was within normal limits, sodium is 132, potassium is 4.3, chloride is 97, CO2 is 33, BUN was 14, creatinine 0.83 lactic acid was 1.1, urinalysis showed trace protein, but no sign of infection. Blood cultures were sent, s howing no growth at the 24-hour estephanie. She was started on empiric Azithromycin and Rocephin for possibility of community-acquired pneumonia, she was started on IV steroids and nebulized bronchodilators and this consult was initiated. The time of our evaluation patient is awake, and alert, is on high flow oxygen at 9 L satting 87-90%. She is responding appropriately, although seems to be a bit irritable 03/06/2022, the patient continues to BE short of breath, not much change compared to yesterday. The chest x-ray still showing multifocal pneumonia. The patient has a congested cough, unable to bring up much sputum. He remains in some antibiotic coverage. Remains on O2 and the patient is currently on 8 L O2 nasal cannula. The patient remains on accommodation Rocephin and Zithromax. The patient is also on IV Solu-Medrol and DuoNeb neb oximetry on the clock. The patient's Douglas is a 21.2 with a hemoglobin of 13, the patient's BUN is a 12 with a creatinine of 0.5 and a sodium level of 140. Legionella urine antigen was negative. The blood cultures of been negative for now. 03/07/2022, the patient has no new complaints. She continues to BE short of breath breath and wheezing related to her underlying COPD/pneumonia. The patient remains on accommodation Rocephin and Zithromax. The patient is on IV Solu-Medrol. The blood cultures of been negative. The sputum cultures have not been obtained yet as the patient is unable to give any sputum. Urine antigen is negative. The patient's white cell count is down to 18 with a hemoglobin of 13.2, BUN is a 15 with a creatinine of 0.5 and his sodium level is at 141. No altered mentation for now. She is quite debilitated and his COPD his advanced as the patient has heavy nicotine use was used to smoke up to 3-4 packs of cigarettes on a daily basis. No signs of any CO2 narcosis. A repeat chest x- ray was done today and the patient has no evidence of any pneumothorax. There is diffuse increase in lung markings bilaterally along with small bilateral pleural effusions and the patient has questionable area of pneumomediastinum along the aortic arch without evidence of any pneumothorax. On 03/08/2022 patient seen in follow-up on medical surgical floor. She is resting comfortably in bed, does not appear to be in any acute distress, but still requiring high flow oxygen at 8 L, and her pulse ox is 91%, she is afeb rile today, blood pressure stable. Mentation is appropriate, she is responding to verbal questioning appropriately, she is oriented 3. She denies any chest discomfort, no hemoptysis, however she states she just feels very tired all the time, she states her breathing is the same not any worse however not particularly better either. She does have a significantly congested cough, he states that time she is able to bring up small amounts of sputum. She tested negative for COVID-19, influenza A and B, and Legionella urine antigen was also negative. She is on Rocephin and azithromycin for antibiotic coverage. Her white count on today's labs is improving and is down to 16.1, hemoglobin is 14 .3, CO2 is 31 on her BMP, the rest of electrolytes and renal profile were within normal limits. Chest x-ray today showing diffuse bilateral airspace disease and pleural effusion and small amount of air along the upper mediastinum which could potentially represent a small degree of pneumomediastinum. Patient remains on IV steroids and nebulized bronchodilators, she is on GI and DVT prophylaxis. She is on IV hydration with point normal seen at a rate of 75 ML per hour. On 03/09/2022 patient seen in follow-up on medical surgical floor. She is sitting up in the chair, appears to be in no acute distress, she requires high flow oxygen, today she is on 8 L, pulse ox is 93-94%. However on today's exam she appears to be less fatigued, she is more alert, breathing easier. No chest discomfort, no hemoptysis. She remains on 0.9 normal saline at 75 ML per hour, we switched her antibiotics to Zosyn yesterday, follow-up chest x-ray has been requested for tomorrow, clinically patient has been stable, her white blood cell count was improving on yesterday's labs, she has not been able to produce a sputum culture, blood cultures have been negative thus far. No acute events overnight. On 03/10/2022 patient seen in follow-up on medical surgical floor, she is resting comfortably in bed, she feels, and sounds much better. Today's follow- up chest x-ray shows improvement in the perihilar and upper lobe areas of infiltrates. Patient is currently on 6 L of oxygen and a pulse ox is 98-99%. Nursing reports that patient sometimes removes her oxygen and desaturated down to 82%. Likely will qualify for home oxygen. In the meanwhile her FiO2 can be weaned further down to keep O2 sats ration is at 88-90%. Clinically patient is breathing easier, no cough, she is less fatigued, she is awake and alert, interactive. No altered mentation. White blood cell count is improving and is down to 11.03, hemoglobin is 12.9, BMP is pending. Blood cultures have been negative. The patient is seen today 03/11/2022 in follow-up on the regular medical floor. Currently sitting up at the bedside. Awake and alert in no acute distress. Lungs sounds improved. Maintaining O2 saturations in the low 90s on 4 L nasal cannula. Dropped to 81% with a walker on room air. Blood cultures revealed no growth. She is continued on DuoNeb inhalations. Antibiotics in the form of Zosyn. Prednisone taper. Objective - Vital Signs Vital signs: Vital Signs Temp 98.0 F 03/11/22 14:00 Pulse 90 03/11/22 14:00 Resp 16 03/11/22 02:00 BP 148/78 03/11/22 14:00 Pulse Ox 93 L 03/11/22 14:00 Intake & Output 03/10/22 03/11/22 03/11/22 18:59 06:59 18:59 Intake Total 1080 Balance 1080 Intake: Oral 1080 Other: Voiding Method Bedside Commode # Voids 2 4 # Bowel Movements 2 1 - Exam GENERAL EXAM: Alert, 66-year-old female, on 4 L of oxygen with a pulse ox of 93% comfortable in no apparent distress. HEAD: Normocephalic/atraumatic. EYES: Normal reaction of pupils, equal size. Conjunctiva pink, sclera white. NOSE: Clear with pink turbinates. THROAT: No erythema or exudates. NECK: No masses, no JVD, no thyroid enlargement, no adenopathy. CHEST: No chest wall deformity. Symmetrical expansion. LUNGS: Equal air entry with crackles CVS: Regular rate and rhythm, normal S1 and S2, no gallops, no murmurs, no rubs ABDOMEN: Soft, nontender. No hepatosplenomegaly, normal bowel sounds, no guarding or rigidity. EXTREMITIES: No clubbing, no edema, no cyanosis, 2+ pulses and upper and lower extremities. MUSCULOSKELETAL: Muscle strength and tone normal. SPINE: No scoliosis or deformity SKIN: No rashes CENTRAL NERVOUS SYSTEM: No focal deficits, tone is normal in all 4 extremities. PSYCHIATRIC: Alert and oriented -3. Appropriate affect. Intact judgment and insight. - Labs CBC & Chem 7: 03/10/22 04:07 03/08/22 08:25 Assessment and Plan Assessment: 1 Acute hypoxic respiratory failure related to bilateral pneumonia, possibly community-acquired, or potentially aspiration related, improving patient is down to 4 L of oxygen 2 Altered mental status related to pneumonia and sepsis 3 Chronic and ongoing history of smoking 4 History of COPD 5 Bipolar disorder 6 Anxiety 7 Hypothyroidism 8 Hypertension Plan: Patient was seen and evaluated Currently stable for discharge from the pulmonary standpoint Evaluate for possible home oxygen Complete a prednisone taper Continue bronchodilators Complete a course of antibiotics Follow-up in the office in one to two-weeks I have personally seen and examined the patient, performed the documentation and the assessment and plan as written. Number of minutes spent on the visit: 10 .
[2022-03-11 15:18] VITALS: PULSE 78
== END 2022-03-11 16:31 | disposition home health service (06) | DRG 871 ==
LOC: EC 21:55 → 4SSUR 03-04 03:59
PROVIDERS: ADMIT Internal Medicine; ATTEND Internal Medicine
DX: A41.9 Sepsis, unspecified organism (principal); J18.9 Pneumonia, unspecified organism; J96.01 Acute respiratory failure with hypoxia; G93.41 Metabolic encephalopathy; J44.0 Chronic obstructive pulmonary disease with (acute) lower respiratory infection; J44.1 Chronic obstructive pulmonary disease with (acute) exacerbation; E87.1 Hypo-osmolality and hyponatremia; E87.2 Acidosis; J93.9 Pneumothorax, unspecified; Z20.822 Contact with and (suspected) exposure to COVID-19; E03.9 Hypothyroidism, unspecified; F31.9 Bipolar disorder, unspecified; R42 Dizziness and giddiness; G89.29 Other chronic pain; F17.210 Nicotine dependence, cigarettes, uncomplicated; F41.9 Anxiety disorder, unspecified; I11.9 Hypertensive heart disease without heart failure; F41.0 Panic disorder [episodic paroxysmal anxiety]; Z79.51 Long term (current) use of inhaled steroids; Z96.641 Presence of right artificial hip joint; Z79.82 Long term (current) use of aspirin; Z79.890 Hormone replacement therapy; Z79.899 Other long term (current) drug therapy; Z98.890 Other specified postprocedural states; Z88.7 Allergy status to serum and vaccine; Z88.8 Allergy status to other drugs, medicaments and biological substances; Z91.040 Latex allergy status; Z80.0 Family history of malignant neoplasm of digestive organs
CPT/HCPCS: 36415; 36600; 71045; 71046; 71275; 80048; 80053; 80175; 81003; 82805; 83605; 83735; 84100; 85025; 85027; 85610; 85730; 87040; 87449; 87502; 87635; 93005; 94640; 94760; 96361; 96365; 96366; 96375; 99285

== ENCOUNTER → 2022-05-24 | Outpatient (CLI) | payer MEDICARE ==
--- NOTE | 2022-05-24 12:46 | US ---
EXAMINATION TYPE: US venous doppler duplex LE DATE OF EXAM: 05/24/2022 12:15 PM COMPARISON: NONE CLINICAL HISTORY: I73.9 Peripheral vascular disease, unspecified. SIDE PERFORMED: Bilateral TECHNIQUE: The lower extremity deep venous system is examined utilizing real time linear array sonog lynn with graded compression, doppler sonography and color-flow sonography. VESSELS IMAGED: Common Femoral Vein Deep Femoral Vein Greater Saphenous Vein * Femoral Vein Popliteal Vein Small Saphenous Vein * Proximal Calf Veins (* superficial vessels) Right Leg: Negative for DVT Left Leg: Negative for DVT Grayscale, color doppler, spectral doppler imaging performed of the deep veins of the lower extremiti es. There is normal flow, compressibility, vascular waveforms. IMPRESSION: No evidence of deep vein thrombosis of the bilateral lower extremities.
== END | disposition home or self-care (01) ==
LOC: RADUSWWP 11:42
PROVIDERS: ATTEND Family Medicine
DX: I73.9 Peripheral vascular disease, unspecified (principal); R60.0 Localized edema
CPT/HCPCS: 93923; 93970

== ENCOUNTER → 2022-10-27 | Outpatient (CLI) | payer MEDICARE ==
[2022-10-27 10:47] VITALS: BP 144/75; PULSE 68; RESP 18; TEMP 98.2
--- NOTE | 2022-10-27 14:25 | P.PAINPG ---
PQRS Measure Charge Sheet Comment: HISTORY OF PRESENT ILLNESS: 67 yr old female as a referral from Dr Nguyen presents today w severe and chronic R LBP secondary to spondylosis, DDD and facet arthropathy without myelopathy for evaluation. Pt states pain level is at 7 /10 in intensity with provocation, constant, localized in the R lower lumbar spine, sore in character w shooting pain towards the RLE. Pain is provoked by bending, twisting and lifting. Pain is alleviated by medications (oxycodone 5 mg, Robaxin 500 mg, Tylenol ES), injections in the past, heating pad use, PT 3 years ago for her right hip, repositioning and rest. PMH: COPD, Hypertension, OA, Hypothyroid Disorder PSH: L Shoulder Arthroscopy, R Total Hip Arthroplasty, Ectopic Surgery, Colonoscopy, C section, Tonsillectomy SH: Heavy tobacco use (3 ppd), Occasional ETOH use, No illicit drug use. Father committed suicide. FH: Mo- Pancreatic CA. Fa- . All: See list Meds: See list REVIEW OF ORGAN SYSTEMS: CONSTITUTIONAL: No fevers or chills. No recent weight loss. NEUROLOGICAL: + numbness and tingling along the distal extremities. No seizure disorders or headaches. MUSCULOSKELETAL: + pain PSYCHIATRIC: Denies current depression or suicidal thoughts. Physical Examinations : Constitutional : Cooperative , not in acute distress . Neurologic : Cranial nerve II to XII intact. No focal neurological deficits. Psychiatric : alert & oriented x 3. Matching mood & appropriate affect. Judgment & insight intact. Musculoskeletal : Cervical Spine Motor strength in the deltoid and biceps: Normal right side. Normal Left side Motor strength biceps and the wrist extensors: Normal right side . Normal left side Motor strength in the triceps muscle: Normal right side. Normal left side Deep tendon reflexes: Normal at the biceps. Normal at Brachioradialis. Normal at triceps Vertebral body tenderness to deep palpation over Cervical facet loading test: positive bilaterally Spurling test: positive bilaterally Neck distraction test: positive bilaterally Ousmane sign: positive bilaterally Lumbar spine Motor strength lower extremities ,thigh and legs 5/5 Right side , 5/5 Left side Deep tendon reflexes : Normal Knee Jerk. Normal Ankle Jerk Vertebral body tenderness over L5 Lumbar facet Loading Test: positive Right / positive Left Range of motion of the lumbar spine Flexion 30 degrees, extension 10 degrees Straight Leg Raise test: Left/ Right positive at degree Alem test: positive right / positive left. Severe tenderness over the Sacroiliac joint on the Right / Left sides Gaenslen test: positive bilaterally Seated flexion test: positive bilaterally. Sacral spine : Severe tenderness over the Sacroiliac joint: right side / left side Range of motion: Flexion of the lumbar spine <60 degrees Range of motion: Extension of the lumbar spine <20 degrees Gaenslen's Test positive Garcia's Test positive Alem test: positive right side / left side Thigh Thrust Test Sacral Thrust Test Imaging: MRI without contrast of the lumbar spine from 01/22/21 reviewed Assessment/ Plan : Lumbar spondylosis, lumbar DDD Recommendation of R TF JUN L5-S1. Patient may need a series of injections, up to 3 within a six-month timeframe, for optimal pain relief. Risks, benefits of procedure discussed and patient verbalized understanding. Denies aspirin or anti- coagulant use or medical history of diabetes. Protocol for discontinuation/ continuation of medications varinder procedure discussed. All questions answered. I have spent greater than 30 minutes on patient care today. Dr Pendleton was available by phone for the evaluation of this patient. The time was used to review the medical records including relevant urine studies and Prescription history (MAPs), review of the available imaging, evaluation and examination of the patient, coordination of care with the medical staff and if applicable referring physicians, as well as creation of the medical record PQRS Narrative: Smoking Status Current every day smoker Home Medications: Ambulatory Orders Levothyroxine Sodium [Levoxyl] 50 mcg PO DAILY 04/04/14 amLODIPine [Norvasc] 10 mg PO DAILY 30 Days #30 tab 01/27/18 traZODone HCL [Desyrel] 100 mg PO HS #14 tab 07/02/19 Escitalopram [Lexapro] 20 mg PO DAILY 03/04/22 diazePAM [Valium] 5 mg PO DAILY PRN 03/04/22 hydrOXYzine pamoate [Vistaril] 25 mg PO BID PRN 03/04/22 Albuterol Inhaler [Ventolin Hfa Inhaler] 2 puff INHALATION RT-QID #8 gm 03/11/22 Budesonide-Formot 160-4.5 Mcg [Symbicort 160-4.5 Mcg Inhaler] 2 puff INHALATION BID 30 Days #10.2 gm 03/11/22 Doxycycline [Vibramycin] 100 mg PO BID 3 Days #6 capsule 03/11/22 lamoTRIgine [LaMICtal] 75 mg PO BID 30 Days #60 tab 03/11/22 predniSONE See Taper PO DIRECTED 12 Days #30 tab 03/11/22 Controlled Substance Measures - Controlled Substance Measures Is patient prescribed a controlled substance at discharge?: No
== END ==
LOC: PNWHC3 09:26
PROVIDERS: ATTEND Specialist
DX: M47.816 Spondylosis without myelopathy or radiculopathy, lumbar region (principal); M51.36 Other intervertebral disc degeneration, lumbar region; Z88.7 Allergy status to serum and vaccine; Z91.040 Latex allergy status; Z88.8 Allergy status to other drugs, medicaments and biological substances; F17.200 Nicotine dependence, unspecified, uncomplicated
CPT/HCPCS: 99211

== ENCOUNTER 2023-09-17 17:49 | Emergency (ER) | payer MEDICARE ==
[2023-09-17 17:58] VITALS: RESP 16; TEMP 97.8
--- NOTE | 2023-09-17 18:32 | ED ---
Lower Extremity Injury HPI - General Chief Complaint: Extremity Injury, Lower Stated Complaint: PAIN IN LEFT FOOT Time Seen by Provider: 09/17/23 18:11 Source: patient, RN notes reviewed Mode of arrival: wheelchair Limitations: no limitations - History of Present Illness Initial Comments: Patient is a 68-year-old female presenting to the ER with a chief complaint of left foot injury. Patient states while loading her groceries into her car her shopping cart started rolling and she tried to stop it when it hit a pothole and fell landing on her left foot. Patient states she fell to the ground after that and hit her left shoulder. Patient denies any other injuries. She states she has pain over her 5th metatarsal with associated swelling. She also endorses the pain radiating up her ankle. Patient denies any numbness or tingling. She has full motion in her ankle and toes. Patient states her left shoulder is also in pain she denies any radiating pain, arm and points to pain over her left trapezius muscle. - Related Data Home Medications Medication Instructions Recorded Confirmed Levothyroxine Sodium [Levoxyl] 50 mcg PO DAILY 04/04/14 03/04/22 Escitalopram [Lexapro] 20 mg PO DAILY 03/04/22 03/04/22 diazePAM [Valium] 5 mg PO DAILY PRN 03/04/22 03/04/22 hydrOXYzine pamoate [Vistaril] 25 mg PO BID PRN 03/04/22 03/04/22 Previous Rx's Medication Instructions Recorded amLODIPine [Norvasc] 10 mg PO DAILY 30 Days #30 tab 01/27/18 traZODone HCL [Desyrel] 100 mg PO HS #14 tab 07/02/19 Albuterol Inhaler [Ventolin Hfa 2 puff INHALATION RT-QID #8 gm 03/11/22 Inhaler] Budesonide-Formot 160-4.5 Mcg 2 puff INHALATION BID 30 Days 03/11/22 [Symbicort 160-4.5 Mcg Inhaler] #10.2 gm Doxycycline [Vibramycin] 100 mg PO BID 3 Days #6 capsule 03/11/22 lamoTRIgine [LaMICtal] 75 mg PO BID 30 Days #60 tab 03/11/22 predniSONE See Taper PO DIRECTED 12 Days 03/11/22 #30 tab Allergies Allergy/AdvReac Type Severity Reaction Status Date / Time influenza virus vaccine qs Allergy Unknown Unknown Verified 09/17/23 17:56 [id number] (36 mos, up) [From Fluarix Quad] latex Allergy Unknown Rash/Hives Verified 09/17/23 17:56 duloxetine HCl AdvReac Unknown INCREASED Verified 09/17/23 17:56 [From Cymbalta] DEPRESSION Review of Systems ROS Statement: Those systems with pertinent positive or pertinent negative responses have been documented in the HPI. ROS Other: All systems not noted in ROS Statement are negative. Past Medical History Past Medical History: COPD, Hypertension, Musculoskeletal Disorder, Osteoarthritis (OA), Thyroid Disorder Additional Past Medical History / Comment(s): COPDD/Chronic bronchitis, home oxygen prn, chronic back pain, occasional vertigo, hypothyroid, diverticular disease/benign polyp. Smoker 3 PPD History of Any Multi-Drug Resistant Organisms: None Reported Past Surgical History: Section, Joint Replacement, Orthopedic Surgery, Tonsillectomy Additional Past Surgical History / Comment(s): L shoulder arthroscopy, total R hip arthroplasty, surgery for ectopic , colonoscopy Past Anesthesia/Blood Transfusion Reactions: No Reported Reaction Additional Past Anesthesia/Blood Transfusion Reaction / Comment(s): Pt received blood in 1983 without reaction. Past Psychological History: Anxiety, Bipolar, Depression, Panic Disorder Smoking Status: Current every day smoker - Past Family History Mother Family Medical History: Cancer Additional Family Medical History / Comment(s): PANCREATIC CANCER Father Additional Family Medical History / Comment(s): Father commited suicide. General Exam Limitations: no limitations General appearance: alert, in no apparent distress Head exam: Present: atraumatic, normocephalic, normal inspection Respiratory exam: Present: normal lung sounds bilaterally. Absent: respiratory distress, wheezes, rales, rhonchi, stridor Cardiovascular Exam: Present: regular rate, normal rhythm, normal heart sounds. Absent: systolic murmur, diastolic murmur, rubs, gallop, clicks Extremities exam: Present: normal inspection (left shoulder tenderness superior to scapula. no ecchymosis/erythema), other (left lateral edema noted over 4/5th metatarsal with tenderness to palpitation of 5th metatarsal. 2+ left dorsalis pedis pulse. no ecchymosis or erythema noted. ) Neurological exam: Present: alert, oriented X3, CN II-XII intact Psychiatric exam: Present: normal affect, normal mood Course Vital Signs 09/17/23 17:56 Temperature 97.8 F Pulse Rate 775 H Respiratory 16 Rate Blood Pressure 164/75 O2 Sat by Pulse 96 Oximetry Medical Decision Making - Medical Decision Making Was pt. sent in by a medical professional or institution (, [facility], SURGICAL ASST, urgent care, hospital, or group home...) When possible be specific @ -No Did you speak to anyone other than the patient for history (EMS, parent, family, police, friend...)? What history was obtained from this source @ -No Did you review nursing and triage notes (agree or disagree)? Why? @ -I reviewed and agree with nursing and triage notes Were old charts reviewed (outside hosp., previous admission, EMS record, old EKG, old radiological studies, urgent care reports/EKG's, group home records)? Report findings @ -No old charts were reviewed Differential Diagnosis (chest pain, altered mental status, abdominal pain women, abdominal pain men, vaginal bleeding, weakness, fever, dyspnea, syncope, headache, dizziness, GI bleed, back pain, seizure, CVA, palpatations, mental health, musculoskeletal)? @ -Differential Musculoskeletal: Muscular strain, contusion, ligament sprain, fracture, arthritis, septic arthritis, bursitis, cellulitis, muscle spasm, nerve compression, DVT, arterial occlusion, herpes zoster, electrolyte abnormality, tumor.... This is not meant to be in all inclusive list] EKG interpreted by me (3pts min.). @ -None X-rays interpreted by me (1pt min.). @ -X-ray of left foot shows no acute fractures or dislocations noted. Mild arthritic changes are present. There is mild x-ray of left shoulder shows no acute osseous abnormalities. CT interpreted by me (1pt min.). @ -None done U/S interpreted by me (1pt. min.). @ -None done What testing was considered but not performed or refused? (CT, X-rays, U/S, labs)? Why? @ -None What meds were considered but not given or refused? Why? @ -I offered Tylenol for pain. Patient refused. Did you discuss the management of the patient with other professionals (professionals i.e. , STEPH[facility], SURGICAL ASST, lab, RT, psych nurse, health social work professor, media buyer, teacher, commanding officer garage, gearcase assembler)? Give summary @ -No Was smoking cessation discussed for >3mins.? @ -No Was critical care preformed (if so, how long)? @ -No Were there social determinants of health that impacted care today? How? (Homelessness, low income, unemployed, alcoholism, drug addiction, transportation, low edu. Level, literacy, decrease access to med. care, [facility], rehab)? @ -No Was there de-escalation of care discussed even if they declined (Discuss DNR or withdrawal of care, Hospice)? DNR status @ -No What co-morbidities impacted this encounter? (DM, HTN, Smoking, COPD, CAD, Cancer, CVA, ARF, Chemo, Hep., AIDS, mental health diagnosis, sleep apnea, morbid obesity)? @ -None Was patient admitted / discharged? Hospital course, mention meds given and route, prescriptions, significant lab abnormalities, going to OR and other pertinent info. @ -Discharge. On examination there is mild edema noted of the dorsal aspect of the left foot. X-rays obtained of the left foot showed no acute fractures or dislocations there was mild arthritic changes noted. The left shoulder showed no acute osseous abnormalities. Patient's left foot will be wrapped with Quinn wrap upon discharge. I advised the patient to rest and elevate her foot. I also suggested she take [id number] Tylenol and Motrin and ice her foot for pain control. I also stated that compression may also help with swelling and support. Patient will be discharged in stable condition with follow-up to PCP. Return parameters were discussed. Patient expressed understanding and agreement with care plan. Undiagnosed new problem with uncertain prognosis? @ -No Drug Therapy requiring intensive monitoring for toxicity (Heparin, Nitro, Insulin, Cardizem)? @ -No Were any procedures done? @ -No Diagnosis/symptom? @ -Left foot contusion Acute, or Chronic, or Acute on Chronic? @ -Acute Uncomplicated (without systemic symptoms) or Complicated (systemic symptoms)? @ -Uncomplicated Side effects of treatment? @ -No Exacerbation, Progression, or Severe Exacerbation? @ -No Poses a threat to life or bodily function? How? (Chest pain, [place], [place], pneumonia, PE, COPD, DKA, ARF, appy, cholecystitis, CVA, Diverticulitis, Homicidal, Suicidal, threat to staff... and all critical care pts) @ -No - Radiology Data Radiology results: report reviewed, image reviewed Disposition Clinical Impression: Contusion of left foot Disposition: HOME SELF-CARE Condition: Stable Additional Instructions: Please return to the Emergency Department if symptoms worsen or any other concerns. Please continue to rest, use ice, compression and elevation. Please use [id number] Tylenol or Motrin. Is patient prescribed a controlled substance at d/c from ED?: No Referrals: Tiffany Guthrie MD [Primary Care Provider] - 1-2 days Time of Disposition: 19:23
--- NOTE | 2023-09-17 18:59 | XR ---
EXAMINATION TYPE: XR foot complete LT DATE OF EXAM: 09/17/2023 6:36 PM CLINICAL INDICATION:Female, 68 years old with history of pain; shopping cart fell on foot COMPARISON: None TECHNIQUE: The left foot was examined in the AP, oblique, and lateral projections. FINDINGS: No evidence of any acute osseous pathology. No evidence of soft tissue swelling. Mild diffuse osteoa rthritic changes, greatest at the great toe MTP joint. IMPRESSION: No evidence of acute fracture. Mild/moderate osteoarthritic changes.
--- NOTE | 2023-09-17 19:00 | XR ---
EXAMINATION TYPE: XR shoulder complete LT DATE OF EXAM: 09/17/2023 6:36 PM CLINICAL INDICATION:Female, 68 years old with history of pain; injury COMPARISON: None TECHNIQUE: XR shoulder complete LT; shoulder was examined in AP, internally rotated and scapular Y p rojections. FINDINGS: 3 views of the shoulder. No acute fracture lucency or dislocation. Mild degenerative change of the a cromioclavicular and glenohumeral joints. Unremarkable soft tissues without radiopaque foreign body s een. Surgical anchors in the proximal humerus. Mild atelectasis in the left lung base. IMPRESSION: No fracture or dislocation.
[2023-09-17 19:44] VITALS: BP 144/83; PULSE 67
== END 2023-09-17 19:35 | disposition home or self-care (01) ==
LOC: EC 17:49
DX: S90.32XA Contusion of left foot, initial encounter (principal); I10 Essential (primary) hypertension; J44.9 Chronic obstructive pulmonary disease, unspecified; E03.9 Hypothyroidism, unspecified; F41.9 Anxiety disorder, unspecified; F31.9 Bipolar disorder, unspecified; F17.200 Nicotine dependence, unspecified, uncomplicated; Z79.890 Hormone replacement therapy; Z79.899 Other long term (current) drug therapy; Z88.7 Allergy status to serum and vaccine; Z88.8 Allergy status to other drugs, medicaments and biological substances; Z91.040 Latex allergy status; W20.8XXA Other cause of strike by thrown, projected or falling object, initial encounter
CPT/HCPCS: 99283

== ENCOUNTER → 2024-01-19 | Outpatient (CLI) | payer SELFPAY ==
--- NOTE | 2024-01-20 08:53 | XR ---
EXAMINATION TYPE: XR lumbosacral spine min 4V DATE OF EXAM: 01/19/2024 4:05 PM CLINICAL INDICATION:Female, 68 years old with history of [id number] RT HIP PAIN,SCIATICA; [facility] COMPARISON: April 11, 2023 TECHNIQUE: XR lumbosacral spine min 4V - Frontal, lateral , bilateral oblique and coned in L5-S1 late ral views of the spine. FINDINGS: No evidence of any acute osseous pathology. No evidence of loss of vertebral body height i s seen. There is slight grade 1 anterolisthesis of L5 on S1 alignment of the lumbar vertebral bodies. Mild scattered disc space narrowing. Multilevel marginal osteophyte formation throughout the visuali zed spine. There is facet joint arthropathy throughout the spine. Scattered at least mild neural fora gerry stenosis. Atherosclerosis of the arterial vasculature. IMPRESSION: 1. No acute fracture. 2. Moderate multilevel disc degeneration. 3. Slight grade 1 anterolisthesis of L5 on S1
--- NOTE | 2024-01-20 08:54 | XR ---
EXAMINATION TYPE: XR Hip Complete RT DATE OF EXAM: 01/19/2024 4:05 PM CLINICAL INDICATION:Female, 68 years old with history of [id number] RT HIP PAIN,SCIATICA; [facility] COMPARISON: 06/10/2020 TECHNIQUE: XR Hip Complete RT; hip was examined in the frontal and lateral projections and a AP pelvi s. FINDINGS: Post arthroplasty changes, hardware is intact, alignment is appropriate. No evidence of fra cture. No evidence of any acute osseous pathology or joint dislocation. IMPRESSION: Hip arthroplasty with hardware intact and in appropriate alignment. No acute fracture.
== END | disposition home or self-care (01) ==
LOC: RADXRYALE 15:42
PROVIDERS: ATTEND Internal Medicine
DX: M54.31 Sciatica, right side (principal); M43.17 Spondylolisthesis, lumbosacral region; M16.11 Unilateral primary osteoarthritis, right hip
CPT/HCPCS: 72110; 73502

== ENCOUNTER → 2024-02-29 | Outpatient (CLI) | payer MEDICARE ==
--- NOTE | 2024-03-02 11:33 | MM ---
Reason for Exam: Screening (asymptomatic). Last mammogram was performed 1 year(s) and 1 month(s) ago. Patient History: Menarche at age 12. First Full-Term at age 23. Postmenopausal. Estrogen for 1 month. Patient used Hormonal Contraceptives for 5 years. Risk Values: Albina 5 year model risk: 1.7%. NCI Lifetime model risk: 5.7%. Prior Study Comparison: 09/18/2019 Right Diagnostic Mammogram, [facility]. 11/28/2020 Bilateral Diagnostic Mammogram, [facility]. 01/06/2023 Bilateral MG 3D screening mammo w/cad, [facility]. Tissue Density: There are scattered areas of fibroglandular density. Findings: Analyzed By CAD. There is no suspicious group of microcalcifications or new suspicious mass in either breast. Overall Assessment: Negative, BI-RAD 1 Management: Screening Mammogram of both breasts in 1 year. . Patient should continue monthly self-breast exams. A clinical breast exam by your physician is recommended on an annual basis. This exam should not preclude additional follow-up of suspicious palpable abnormalities. Note on Albina scores and lifetime risk: 1. A Albina score greater than 3% is considered moderate risk. If this is the case, consider specialist referral to assess eligibility for a risk reducing agent. 2. If overall lifetime risk for the development of breast cancer is 20% or higher, the patient may qualify for future screening with alternating mammogram and breast MRI. Electronically signed and approved by: Indio Riojas M.D. Radiologis
== END | disposition home or self-care (01) ==
LOC: RADMAMWWP 13:12
PROVIDERS: ATTEND Internal Medicine
DX: Z12.31 Encounter for screening mammogram for malignant neoplasm of breast (principal); Z78.0 Asymptomatic menopausal state
CPT/HCPCS: 77063; 77067

== ENCOUNTER → 2025-01-10 | Outpatient (CLI) | payer MEDICARE ==
--- NOTE | 2025-01-10 14:43 | BD ---
EXAMINATION TYPE: Axial Bone Density DATE OF EXAM: 01/10/2025 CLINICAL HISTORY: 69 years old Female. ICD-10 CODE: M81.0 AGE RELATED OSTEOPOROSIS , Additional Hist ory: Height: 61 Weight: 108.1 FRAX RISK QUESTIONS: Alcohol (3 or more units per day): no Family History (Parent hip fracture): no Glucocorticoids (More than 3mos): no (Ex: prednisone, prednisolone, methylprednisolone, dexamethasone, and hydrocortisone). History of Fracture in Adulthood: yes Secondary Osteoporosis: 1. Type 1 Diabetes: no 2. Hyperthyroidism: no 3. Menopause before 45: yes 4. Malnutrition: no 5. Chronic liver disease: no Rheumatoid Arthritis: yes Current Tobacco Use: yes RISK FACTORS HISTORY OF: Surgery to Spine/Hip(right/left)/Wrist (right/left): right hip/age 62 MEDICATIONS: Thyroid Medications: levothyroxine How Lon years Osteoporosis Medications: fosamax How Lon year EXAM MEASUREMENTS: Bone mineral densitometry was performed using the Hartman Wright System. Bone mineral density as measured about the Lumbar spine is: ----- L1-L4(G/cm2): 1.027 T Score Values are as follows: ----- L1: -2.3 ----- L2: -1.8 ----- L3: -1.1 ----- L4: -0.4 ----- L1-L4: -1.3 Z Score Values are as follows: ----- L1: -0.1 ----- L2: 0.4 ----- L3: 1.1 ----- L4: 1.8 ----- L1-L4: 0.9 Bone mineral density has: increased 7.0 % since study of: 01.06.2023 Bone mineral density about the L hip (g/cm2): 0.733 T Score values are as follows: -----L Neck: -2.1 -----L Total: -2.2 Z Score values are as follows: -----L Neck: -0.2 -----L Total: -0.4 Bone mineral density has decreased -1.1 % since study of: 01.06.2023 FRAX%s: The graph provided illustrates a 18.8% chance for a major osteoporotic fx and a 6.0% chance f or the hips probability for fx in 10 years time. IMPRESSION: Osteopenia (T Score between -2.5 and -1). There is slightly increased risk of fracture and the patient may be considered for treatment. Re-Screen 2-5 years. NOTE: T-SCORE=SD OF THE YOUNG ADULT MEAN. [facility], , 01/10/2025 2:40 PM
== END | disposition home or self-care (01) ==
LOC: RADBDWWP 12:31
PROVIDERS: ATTEND Family Medicine
DX: M81.0 Age-related osteoporosis without current pathological fracture (principal); M85.89 Other specified disorders of bone density and structure, multiple sites
CPT/HCPCS: 77080

== ENCOUNTER → 2025-06-07 | Outpatient (CLI) | payer MEDICARE ==
[2025-06-07 15:48] LABS: T4, Free (Free Thyroxine) 1.28 ng/dL (0.80-1.80); Vitamin B12 789.0 pg/mL (200.0-944.0)
== END | disposition home or self-care (01) ==
LOC: LABWHC1 12:20
PROVIDERS: ATTEND Psychiatry & Neurology Neurology
DX: R41.3 Other amnesia (principal)
CPT/HCPCS: 36415; 82607; 82746; 84207; 84425; 84439; 84443